=== PATIENT | male | born 1960 | race Caucasian/White ===

== ENCOUNTER 2020-01-06 13:37 | Emergency (ER) | payer OTHER, SELFPAY ==
--- NOTE | ~2020-01-06 | XR_ITS ---
EXAMINATION: [id number] INDICATION: Right lateral rib pain TECHNIQUE: A frontal view of the chest and 3 views of the right ribs were obtained. COMPARISON: CT, 11/17/2019 FINDINGS: The lungs are free of acute opacities. There is no pleural effusion or pneumothorax. The ca rdiomediastinal silhouette is normal. No displaced rib fracture is identified. Multiple calcification s of the upper abdomen are consistent with chronic pancreatitis demonstrated on the comparison CT. IMPRESSION: 1. No acute cardiopulmonary abnormality or evidence of displaced rib fracture. Reviewed, dictated and finalized at location A. 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
--- NOTE | 2020-01-06 13:44 | ED.FALL ---
HPI - Fall General Chief Complaint: Fall Stated Complaint: Fall Time Seen by Provider: 01/06/20 14:06 Source: patient and RN notes reviewed Mode of arrival: ambulatory Limitations: no limitations History of Present Illness HPI Narrative: 59-year-old male presents with concern for right rib pain. Reports last night while standing up from a chair he felt dizzy and fell landing on the floor. He denies hitting his ribs on any hard surface. He denies loss of consciousness, head injury. He denies shortness of breath, reports pain with deep breathing and coughing. 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 He denies any chest pain, shortness of breath, headache, weakness in any extremity, difficulty speaking, difficulty swallowing. MD complaint: fall Related Data Home Medications Medication Instructions Recorded Confirmed lisinopril 20 mg tablet 20 mg PO DAILY 09/24/19 10/27/19 Allergies Allergy/AdvReac Type Severity Reaction Status Date / Time No Known Allergies Allergy Verified 01/06/20 13:41 Review of Systems Review of Systems: Narrative: CONSTITUTIONAL: Denies malaise, chills, sweats, or fever. EYES: Denies no visual changes ENT: Denies rhinorrhea, congestion, sinus pain, otalgia or sore throat. CARDIOVASCULAR: Denies chest pain, palpitations, or edema. RESPIRATORY: Denies cough or dyspnea. Reports pain with coughing and deep breathing GASTROINTESTINAL: Denies abdominal pain, nausea, vomiting, diarrhea SKIN: Denies bruising or redness MUSCULOSKELETAL: Denies back pain, joint pain, or myalgia. Reports right rib cage pain NEUROLOGIC: Denies numbness, weakness, or headache. All systems reviewed & are unremarkable except as noted in HPI and below PMFSH Past Medical History Medical History (Updated 01/06/20 @ 14:32 by Daphney Hendrix NP) Chronic depression Insomnia Julissa hereditary optic neuropathy Family History Family History (Updated 04/07/19 @ 13:11 by DOCTOR UNKNOWN) Father Family history of kidney disease Family history of diabetes mellitus in first degree relative Family history of heart disease in male family member before age 55 Patient's father is , Onset Age: 45 Family history of cardiovascular disease Mother Cerebrovascular accident, Onset Age: 88 Social History Social History Smoking status: Heavy tobacco smoker Alcohol intake: current Gender identity (if verbalized by the patient): Male Comments At time of signature, agree with nursing past medical, surgical, social and family history. There is no relevant family history pertinent to the presenting complaint Exam Narrative: Exam Narrative: GENERAL: Well-appearing, well-nourished, and in no acute distress. HEAD: Normocephalic, atraumatic. EYES: PERRLA, conjunctivae clear ENT: Nares clear. Mucous membranes moist. TM pearly juan with sharp light reflex bilaterally; no tragal tenderness. NECK: Supple. CHEST: No respiratory distress. Clear to auscultation. No bony deformities, no asymmetry. Speaks in full sentences. HEART: Regular rate and rhythm. No murmur heard. Normal peripheral pulses. SKIN: Warm, dry, no rash. No erythema ecchymosis noted to right rib cage Musculoskeletal: Mild tenderness upon palpation to right lower rib area, lateral NEURO: Alert and oriented x3. No focal deficits. PSYCH: Normal mood and affect Course Course Emergency Course: Discussed with patient limited diagnostic capability express care and need for further evaluation of near syncope. Patient reports at this time he will not seek further evaluation emergency department. Reports he can follow-up with his primary care provider for symptoms return. Patient is aware of diagnosis, understands and agrees to treatment plan. Anticipatory guidance given. Patient agrees to follow-up as directed and is aware
[2020-01-06 13:49] VITALS: BP 133/89; PULSE 120; RESP 16; TEMP 37.2; O2SAT 98
[2020-01-06 14:28] VITALS: BP 132/84; PULSE 128
[2020-01-06 14:29] VITALS: BP 112/81; BP 114/81
== END 2020-01-06 14:36 | disposition home or self-care (01) ==
PROVIDERS: Emergency Provider Nurse Practitioner; PCP Family Medicine
DX: R07.81 Pleurodynia (principal); I95.1 Orthostatic hypotension; F17.200 Nicotine dependence, unspecified, uncomplicated
CPT/HCPCS: 71101; 99213; G0463

== ENCOUNTER 2020-09-16 01:05 | Outpatient (CLI) | payer OTHER, SELFPAY ==
[2020-09-16 20:27] LABS: SARS-CoV-2 RNA PCR Negative
== END 2020-09-16 01:06 | disposition home or self-care (01) ==
LOC: ANHCOVIDDT 01:05
PROVIDERS: PCP Family Medicine; Visit Provider Internal Medicine Gastroenterology
DX: Z01.812 Encounter for preprocedural laboratory examination (principal); Z20.828 Contact with and (suspected) exposure to other viral communicable diseases
CPT/HCPCS: 87635; C9803; U0003

== ENCOUNTER 2020-09-19 00:35 | Day surgery (SDC) | payer OTHER, SELFPAY ==
[2020-09-13 15:32] VITALS: BMI 21.1
[2020-09-19 08:35] VITALS: BP 115/80; PULSE 109; RESP 16; TEMP 36.4; O2SAT 100; BMI 20.7
[2020-09-19 08:54] LABS: Glucose Point of Care 94 (65-105)
[2020-09-19] MEDS: LACTATED RINGERS 1,000 ML 150 ML IV CONT (09:01)
--- NOTE | 2020-09-19 09:04 | WPDGICN ---
Assessment and Plan Assessment and plan (1) GERD (gastroesophageal reflux disease): Code(s): K21.9 - Gastro-esophageal reflux disease without esophagitis Status: Acute Assessment and Plan: Patient has ongoing heartburn despite being on proton pump inhibitor. Now has new diagnosis of dysphagia. Plan is for EGD to assess more thoroughly. 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 Plan is for surveillance colonoscopy at this time. GI Consult Note Consult date/time: 09/19/20 09:04 HPI: Gamaliel Moscoso is a 60 year old male Seen in evaluation at the request Dr. Park. Patient presents for follow-up colonoscopy. He has a distant history of colon polyps. He denies any recent change in bowel habits. He has had no bleeding. No abdominal pain his bowel habits are regular. Patient continues to complains of significant acid reflux. Since November 2019 has been maintained on pantoprazole 40 mg p.o. daily. He continues to complain of heartburn. Recently has had difficulty swallowing with food hanging up in the mid substernal portion of the chest. He has had no improvement with pantoprazole. Patient reports over last several years has been declared legally blind. He now apparently has an optical nerve problem. Review of Systems Review of Systems: All systems reviewed & are unremarkable except as noted in HPI and below PMFSH Past Medical History Medical History (Updated 09/19/20 @ 09:06 by Arthur Weeks MD) Acute non-recurrent maxillary sinusitis Chronic depression GERD (gastroesophageal reflux disease) Heartburn Insomnia Julissa hereditary optic neuropathy Mild intermittent asthma in adult without complication Situational anxiety Family History Family History Father Family history of kidney disease Family history of diabetes mellitus in first degree relative Family history of heart disease in male family member before age 55 Patient's father is , Onset Age: 45 Family history of cardiovascular disease Mother Cerebrovascular accident, Onset Age: 88 Social History Social History (Updated 09/08/20 @ 15:21 by Sindy He MA) Smoking packs per day: 1 Smoking cigarettes per day: 20.0 Years smoked: 30 Smoking pack-years: 30.00 Smoking status: Current every day smoker Tobacco type: cigarettes Alcohol intake: current Drinks per week: 4 Alcohol use details: BEER/WHISKEY Substance use: former Substance use type: former substance user Living arrangements: alone Gender identity (if verbalized by the patient): Male Spiritual care concerns: No Meds Home Medications and Allergies Home Medications Medication Instructions Recorded Confirmed Type insulin lispro 100 unit/mL 10 unit SUB-Q TID #15 ml 10/27/19 09/13/20 Rx subcutaneous pen cyclobenzaprine 10 mg tablet 10 mg PO TID PRN #270 tablet 01/28/20 09/13/20 Rx fluticasone propionate 50 1 spray INTRANASAL BID #16 ml 09/08/20 09/13/20 Rx mcg/actuation nasal spray,suspension hydrocodone 7.5 mg-acetaminophen 1 tablet PO Q4H PRN #120 tablet 09/08/20 09/13/20 Rx 325 mg tablet amitriptyline 25 mg PO HS 09/13/20 09/13/20 History escitalopram oxalate [Lexapro] 10 mg PO HS 09/13/20 09/13/20 History lisinopril 20 mg PO HS 09/13/20 09/13/20 History pantoprazole 40 mg PO HS 09/13/20 09/13/20 History Allergies Allergy/AdvReac Type Severity Reaction Status Date / Time No Known Allergies Allergy Verified 09/19/20 08:33 Vital Signs Vital Signs - 24 hr 09/19/20 08:35 Temperature 97.6 F Pulse Rate 109 H Respiratory Rate 16 Blood Pressure 115/80 Pulse Oxime
--- NOTE | 2020-09-19 09:07 | WPDANESEPPF ---
Anes - Initial Pre Proc Eval Procedure: Operation Date: 09/19/20 09:30 Proposed Procedures p Screening Colonoscopy - Arthur Weeks MD Date/Time: 09/19/20 09:07 Surgeon: Arthur Weeks MD Pre Op Diagnosis: Neoplasm Screening, Hx of Colon Polyps Patient Data Age: 60 Gender: M Height: 5 ft 9 in Weight: 63.5 kg Last Vital Signs Temp 36.4 C 09/19/20 08:35 Pulse 109 H 09/19/20 08:35 Resp 16 09/19/20 08:35 BP 115/80 09/19/20 08:35 Pulse Ox 100 09/19/20 08:35 Allergies Allergy/AdvReac Type Severity Reaction Status Date / Time No Known Allergies Allergy Verified 09/19/20 08:33 Home Medications Medication Instructions Recorded Confirmed Type insulin lispro 100 unit/mL 10 unit SUB-Q TID #15 ml 10/27/19 09/13/20 Rx subcutaneous pen cyclobenzaprine 10 mg tablet 10 mg PO TID PRN #270 tablet 01/28/20 09/13/20 Rx fluticasone propionate 50 1 spray INTRANASAL BID #16 ml 09/08/20 09/13/20 Rx mcg/actuation nasal spray,suspension hydrocodone 7.5 mg-acetaminophen 1 tablet PO Q4H PRN #120 tablet 09/08/20 09/13/20 Rx 325 mg tablet amitriptyline 25 mg PO HS 09/13/20 09/13/20 History escitalopram oxalate [Lexapro] 10 mg PO HS 09/13/20 09/13/20 History lisinopril 20 mg PO HS 09/13/20 09/13/20 History pantoprazole 40 mg PO HS 09/13/20 09/13/20 History Laboratory Tests 09/19/20 08:52 POC Capillary Glucose 94 mg/dl mg/dl (65-105) Patient hx anesthesia problems: none Family hx anesthesia problems: none PMFSH Past Medical History Medical History Acute non-recurrent maxillary sinusitis Chronic depression GERD (gastroesophageal reflux disease) Heartburn Insomnia Julissa hereditary optic neuropathy Mild intermittent asthma in adult without complication Situational anxiety Family History Family History Father Family history of kidney disease Family history of diabetes mellitus in first degree relative Family history of heart disease in male family member before age 55 Patient's father is , Onset Age: 45 Family history of cardiovascular disease Mother Cerebrovascular accident, Onset Age: 88 Social History Social History Smoking packs per day: 1 Smoking cigarettes per day: 20.0 Years smoked: 30 Smoking pack-years: 30.00 Smoking status: Current every day smoker Tobacco type: cigarettes Alcohol intake: current Drinks per week: 4 Alcohol use details: BEER/WHISKEY Substance use: former Substance use type: former substance user Living arrangements: alone Gender identity (if verbalized by the patient): Male Spiritual care concerns: No Anes - Eval Final PreProcedure Day of Procedure 09/19/20 09:07 Patient weight: normal Heart: regular rate and rhythm Lungs: decreased breath sounds Airway: Mallampati scale class II and special considerations poor dentition Neurological: alert and oriented Last oral intake: >/= 8 hours ASA classification: III Emergent: no Anesthetic plan: proceed Anesthesia type and monitoring: general GIVS and standard monitoring Informed Consent: The patient's anesthetic plan and its attendant risks and benefits were discussed with the patient/family/POA. Questions were solicited and answers provided to the satisfaction of the patient/family/POA.
[2020-09-19 10:32] VITALS: BP 123/58; PULSE 105; RESP 25; O2SAT 96
[2020-09-19 10:42] VITALS: BP 91/63; PULSE 101; RESP 36; O2SAT 93
[2020-09-19 10:49] VITALS: PULSE 96; RESP 18
[2020-09-19] MEDS: ALBUTEROL SULFATE NEB 2.5 MG/3 ML INH 1.25 MG INHALATION (10:49)
[2020-09-19 10:50] LABS: Glucose Point of Care 86 (65-105)
[2020-09-19 10:52] VITALS: BP 107/72; PULSE 96; RESP 27; O2SAT 95
--- NOTE | 2020-09-19 10:57 | SUR.PHASEII ---
Pt to recovery coughing. Lungs diminished with wheezing in LLL. Pt continue coughing. Albuteral Neb ordered per Dr. Cavazos. Lungs now diminished with wheezing in LLL, but improved. Pt and family educated on signs and symptoms of aspiration pneumonia and to call physician with any symptoms or concerns. Both voiced understanding.
[2020-09-19 11:07] VITALS: PULSE 97; RESP 20
== END 2020-09-19 11:22 | disposition home or self-care (01) ==
PROVIDERS: PCP Family Medicine; Visit Provider Internal Medicine Gastroenterology
PROC: 0DJD8ZZ Inspection of Lower Intestinal Tract, Via Natural or Artificial Opening Endoscopic (ICD-10-PCS; CPT 45378; principal; 2020-09-19 09:30)
DX: Z12.11 Encounter for screening for malignant neoplasm of colon (principal); Z86.010 Personal history of colon polyps; K21.00 Gastro-esophageal reflux disease with esophagitis, without bleeding; K22.70 Barrett's esophagus without dysplasia; I10 Essential (primary) hypertension; E11.9 Type 2 diabetes mellitus without complications; Z79.4 Long term (current) use of insulin; J45.20 Mild intermittent asthma, uncomplicated; Z79.51 Long term (current) use of inhaled steroids; H47.22 Hereditary optic atrophy; F32.9 Major depressive disorder, single episode, unspecified; F41.8 Other specified anxiety disorders; G47.00 Insomnia, unspecified; F17.210 Nicotine dependence, cigarettes, uncomplicated
CPT/HCPCS: 45378; 43239; 88305; 94640; J2704; J7120

== ENCOUNTER 2020-10-17 01:41 | Outpatient (CLI) | payer OTHER, SELFPAY ==
[2020-10-17 18:52] LABS: SARS-CoV-2 RNA PCR Negative
== END 2020-10-17 01:42 | disposition home or self-care (01) ==
LOC: ANHCOVIDDT 01:41
PROVIDERS: PCP Family Medicine; Visit Provider Internal Medicine Gastroenterology
DX: Z01.818 Encounter for other preprocedural examination (principal); Z20.828 Contact with and (suspected) exposure to other viral communicable diseases
CPT/HCPCS: 87635; C9803; U0003

== ENCOUNTER 2020-10-20 00:30 | Day surgery (SDC) | payer OTHER, SELFPAY ==
[2020-10-12 12:34] VITALS: BMI 20.2
--- NOTE | 2020-10-19 12:11 | WPDANESEPPF ---
Anes - Initial Pre Proc Eval Procedure: Operation Date: 10/20/20 08:30 Proposed Procedures p Screening Colonoscopy - Arthur Weeks MD Date/Time: 10/19/20 12:11 Surgeon: Arthur Weeks MD Pre Op Diagnosis: neoplasm screening Patient Data Age: 60 Gender: M Height: 1.78 m Weight: 64 kg Allergies Allergy/AdvReac Type Severity Reaction Status Date / Time No Known Allergies Allergy Verified 10/20/20 07:08 Home Medications Medication Instructions Recorded Confirmed Type insulin lispro 100 unit/mL 10 unit SUB-Q TID #15 ml 10/27/19 10/20/20 Rx subcutaneous pen fluticasone propionate 50 1 spray INTRANASAL BID #16 ml 09/08/20 10/12/20 Rx mcg/actuation nasal spray,suspension amitriptyline 25 mg PO HS 09/13/20 10/20/20 History escitalopram oxalate [Lexapro] 10 mg PO HS 09/13/20 10/20/20 History lisinopril 20 mg PO HS 09/13/20 10/20/20 History pantoprazole 40 mg PO HS 09/13/20 10/20/20 History cyclobenzaprine 10 mg tablet 10 mg PO TID PRN #270 tablet 10/11/20 10/20/20 Rx hydrocodone 7.5 mg-acetaminophen 1 tablet PO Q4H PRN #120 tablet 10/11/20 10/20/20 Rx 325 mg tablet Patient hx anesthesia problems: none Family hx anesthesia problems: none PMFSH Past Medical History Medical History (Updated 10/19/20 @ 12:12 by Prince Madsen MD) Acute non-recurrent maxillary sinusitis Chronic depression Chronic pancreatitis Diabetic peripheral neuropathy Essential (primary) hypertension GERD (gastroesophageal reflux disease) Heartburn Insomnia Julissa hereditary optic neuropathy Mild intermittent asthma in adult without complication Situational anxiety Tobacco use disorder, continuous Uncontrolled type 1 diabetes mellitus with hyperglycemia Family History Family History Father Family history of kidney disease Family history of diabetes mellitus in first degree relative Family history of heart disease in male family member before age 55 Patient's father is , Onset Age: 45 Family history of cardiovascular disease Mother Cerebrovascular accident, Onset Age: 88 Social History Social History Smoking packs per day: 1 Smoking cigarettes per day: 20.0 Years smoked: 1,976 Smoking pack-years: 1976.00 Smoking status: Current every day smoker Tobacco type: cigarettes Alcohol intake: current Drinks per week: 4 Substance use: former Substance use type: former substance user Living arrangements: alone Gender identity (if verbalized by the patient): Male Spiritual care concerns: No Anes - Eval Final PreProcedure Day of Procedure 10/19/20 12:11 Patient weight: normal Heart: regular rate and rhythm Lungs: clear to auscultation and normal air movement Airway: Mallampati scale class II Neurological: alert and oriented Last oral intake: >/= 8 hours ASA classification: III Emergent: no Anesthetic plan: proceed Anesthesia type and monitoring: general GIVS Informed Consent: The patient's anesthetic plan and its attendant risks and benefits were discussed with the patient/family/POA. Questions were solicited and answers provided to the satisfaction of the patient/family/POA.
[2020-10-20 07:12] VITALS: BP 126/90; PULSE 116; RESP 18; TEMP 36.6; O2SAT 100; BMI 19.8
[2020-10-20] MEDS: LACTATED RINGERS 1,000 ML 150 ML IV CONT (07:22)
[2020-10-20 07:31] LABS: Glucose Point of Care 135 (65-105)
--- NOTE | 2020-10-20 08:20 | WPDGICN ---
Assessment and Plan Assessment and plan (1) Encounter for screening colonoscopy: Code(s): Z12.11 - Encounter for screening for malignant neoplasm of colon Status: Acute Assessment and Plan: Patient presents today for screening colonoscopy. Additional prep was given in anticipation of this. Further recommendations will be given after endoscopy. GI Consult Note Consult date/time: 10/20/20 08:20 HPI: Gamaliel Moscoso is a 60 year old male Presents for screening colonoscopy. Patient initial attempted endoscopy was limited by poor preparation. Patient does have a prior history of colon polyps. He has been treated for diabetes mellitus. Family history is noncontributory. patient denies any blood in his stools. He has had no weight loss. He denies abdominal pain. Review of Systems Review of Systems: All systems reviewed & are unremarkable except as noted in HPI and below PMFSH Past Medical History Medical History Acute non-recurrent maxillary sinusitis Chronic depression Chronic pancreatitis Diabetic peripheral neuropathy Essential (primary) hypertension GERD (gastroesophageal reflux disease) Heartburn Insomnia Julissa hereditary optic neuropathy Mild intermittent asthma in adult without complication Situational anxiety Tobacco use disorder, continuous Uncontrolled type 1 diabetes mellitus with hyperglycemia Family History Family History Father Family history of kidney disease Family history of diabetes mellitus in first degree relative Family history of heart disease in male family member before age 55 Patient's father is , Onset Age: 45 Family history of cardiovascular disease Mother Cerebrovascular accident, Onset Age: 88 Social History Social History Smoking packs per day: 1 Smoking cigarettes per day: 20.0 Years smoked: 1,976 Smoking pack-years: 1976.00 Smoking status: Current every day smoker Tobacco type: cigarettes Alcohol intake: current Drinks per week: 4 Substance use: former Substance use type: former substance user Living arrangements: alone Gender identity (if verbalized by the patient): Male Spiritual care concerns: No Meds Home Medications and Allergies Home Medications Medication Instructions Recorded Confirmed Type insulin lispro 100 unit/mL 10 unit SUB-Q TID #15 ml 10/27/19 10/20/20 Rx subcutaneous pen fluticasone propionate 50 1 spray INTRANASAL BID #16 ml 09/08/20 10/12/20 Rx mcg/actuation nasal spray,suspension amitriptyline 25 mg PO HS 09/13/20 10/20/20 History escitalopram oxalate [Lexapro] 10 mg PO HS 09/13/20 10/20/20 History lisinopril 20 mg PO HS 09/13/20 10/20/20 History pantoprazole 40 mg PO HS 09/13/20 10/20/20 History cyclobenzaprine 10 mg tablet 10 mg PO TID PRN #270 tablet 10/11/20 10/20/20 Rx hydrocodone 7.5 mg-acetaminophen 1 tablet PO Q4H PRN #120 tablet 10/11/20 10/20/20 Rx 325 mg tablet Allergies Allergy/AdvReac Type Severity Reaction Status Date / Time No Known Allergies Allergy Verified 10/20/20 07:08 Vital Signs Vital Signs - 24 hr 10/20/20 07:12 Temperature 97.9 F Pulse Rate 116 H Respiratory Rate 18 Blood Pressure 126/90 Pulse Oximetry 100 Exam Narrative: Exam Narrative: Physical exam reveals patient be alert. Vital signs stable. HEENT exam is unremarkable. Lungs are clear to auscultation and percussion. Heart is without murmur or extra sounds. Abdominal exam bowel sounds are present soft nontender without organomegaly. Digital external rectal exam is normal.
[2020-10-20 08:37] VITALS: BP 106/75; PULSE 111; RESP 24; O2SAT 98
[2020-10-20 08:47] VITALS: BP 118/83; PULSE 99; RESP 23; O2SAT 99
[2020-10-20 08:49] LABS: Glucose Point of Care 122 (65-105)
[2020-10-20 08:57] VITALS: BP 122/85; PULSE 91; RESP 15; O2SAT 98
== END 2020-10-20 09:12 | disposition home or self-care (01) ==
PROVIDERS: PCP Family Medicine; Visit Provider Internal Medicine Gastroenterology
PROC: 0DJD8ZZ Inspection of Lower Intestinal Tract, Via Natural or Artificial Opening Endoscopic (ICD-10-PCS; CPT 45378; principal; 2020-10-20 08:30)
DX: Z12.11 Encounter for screening for malignant neoplasm of colon (principal); K64.8 Other hemorrhoids; J45.20 Mild intermittent asthma, uncomplicated; I10 Essential (primary) hypertension; K21.9 Gastro-esophageal reflux disease without esophagitis; H46.8 Other optic neuritis; F41.8 Other specified anxiety disorders; E10.42 Type 1 diabetes mellitus with diabetic polyneuropathy; F17.210 Nicotine dependence, cigarettes, uncomplicated; Z79.4 Long term (current) use of insulin
CPT/HCPCS: 45378; J2704; J7120

== ENCOUNTER 2022-01-29 16:28 | Outpatient (CLI) | payer SELFPAY ==
--- NOTE | 2022-01-29 16:37 | ECG_ITS ---
Measurements Intervals [place] Rate: 123 P: 82 ID: [id number] QRS: 65 QRSD: 94 T: 83 QT: 287 QTc: 411 Interpretive Statements SINUS TACHYCARDIA NONSPECIFIC T-WAVE ABNORMALITY CANNOT RULE OUT INFERIOR INFARCTION ABNORMAL ECG Electronically Signed On 01-30-2022 11:09:52 CDT by Jason Robledo M.D.
== END 2022-01-29 16:29 | disposition home or self-care (01) ==
LOC: ANHCARD 16:31
PROVIDERS: PCP Family Medicine; Visit Provider Family Medicine
DX: R55 Syncope and collapse (principal); R94.31 Abnormal electrocardiogram [ECG] [EKG]
CPT/HCPCS: 93005

== ENCOUNTER 2022-01-30 14:47 | Inpatient (IN) | payer SELFPAY ==
--- NOTE | ~2022-01-30 | XR_ITS ---
EXAMINATION: XR chest 1V portable DATE: 01/30/2022 15:44 INDICATION: Dizziness and tachycardia. Abnormal EKG. TECHNIQUE: frontal view of the chest was obtained. COMPARISON: Chest radiograph dated 06/22/14 FINDINGS: Lungs are now clear with no focal airspace opacities, pulmonary edema, pleural effusion or pneumothor ax. The cardiomediastinal silhouette is normal. Old healed posterior right ninth rib fracture. Surgic al clips in the upper abdomen including right upper quadrant clips consistent with prior cholecystect james. Numerous dystrophic calcifications in the left upper quadrant corresponding to the location and orientation of the pancreas, likely sequela of chronic pancreatitis. IMPRESSION: 1. No acute cardiopulmonary disease. Reviewed, dictated and finalized at location A.
--- NOTE | ~2022-01-30 | MR_ITS ---
EXAMINATION: MR brain/brain stem wo/w con DATE: 01/31/2022 11:59 INDICATION: Seizure. Transient ischemic episode TECHNIQUE: Magnetic resonance imaging (MRI) of the brain and brainstem was performed without and with 12 mL Multihance intravenous contrast. Sequences included sagittal and axial T1-weighted SE, axial d iffusion-weighted FS SE, axial T2*-weighted GRE, axial T2-weighted FLAIR, and axial T2-weighted FSE. Postcontrast axial and coronal T1-weighted SE was obtained. Apparent diffusion coefficient (ADC) maps were created. COMPARISON: Head CT dated 01/30/2022 FINDINGS: There are no areas of restricted diffusion to suggest acute infarction. No intracranial hemorrhage or abnormal intracranial mass lesion. There are scattered areas of nonspecific increased T2-weighted si gnal intensity in the cerebral white matter, predominantly involving the deep and periventricular whi te matter. There are no intraparenchymal signal abnormalities seen on the other pulse sequences. Symm etric prominence of the sulci, subarachnoid spaces overlying the frontal lobes and ventricles consist ent with mild age-appropriate diffuse cerebral volume loss. There are no abnormal extra-axial fluid c ollections. Flow voids are seen in the cerebral arteries on the T2-weighted sequences consistent with their expected patency. Mucosal thickening, moderate with small amount of mucus in the left maxillar y sinus and mild throughout the remainder of the paranasal sinuses Visualized orbits and soft tissues are unremarkable. There are no areas of abnormal enhancement on the post contrast images. IMPRESSION: 1. No acute intracranial process or abnormally enhancing brain lesions. 2. Age-related changes including mild diffuse volume loss and mild scattered foci of nonspecific whit e matter T2 hyperintensity consistent with chronic small vessel ischemic disease. 3. Left maxillary sinus predominant sinus disease. Reviewed, dictated and finalized at location A. IMPRESSION: 1. No acute intracranial process or abnormally enhancing brain lesions. 2. Age-related changes including mild diffuse volume loss and mild scattered fo ci of nonspecific white matter T2 hyperintensity consistent with chronic small vessel ischemic disease. 3. Left maxillary sinus predominant sinus disease.
--- NOTE | ~2022-01-30 | US_ITS ---
EXAMINATION: US carotid duplex BI DATE: 01/31/2022 12:12 INDICATION: Recurrent syncope TECHNIQUE: Grayscale, color Doppler, and pulsed Doppler images of the cervical carotid arteries were obtained. The degree of vessel stenosis is placed in one of the following categories: normal, <50%, 5 0-69%, >=70% but less than near-occlusion, near-occlusion, or total occlusion. Note that percent sten osis relative to normal distal artery lumen diameter is indirectly measured from velocity measurement s as described by Kristian, et al. Radiology 2003; 229:340-346. Notes: Normal: Peak systolic velocity <125 centimeters/sec and no plaque <50%. Peak systolic velocity <125 ( EDV <40; ICA/CCA PSV ratio <2.0; used these factors only a tandem lesions or low cardiac output or co ntralateral disease) 50-69 %: PSV 125-230 (EDV 40-100; ratio 2-4) >= 70% but less than near occlusion: PSV greater than 230 (EDV > 100; ratio> 4.0) Near Occlusion: PSV that is variable; markedly narrowed lumen Occlusion: Absent flow on color/spectral Doppler and no lumen on juan scale. COMPARISON: None. FINDINGS: RIGHT: The right common carotid artery (CCA) peak systolic velocity (PSV) is 121 cm/s. The right internal ca rotid artery (ICA) PSV is 79 cm/s. The right ICA end-diastolic velocity (EDV) is 18 cm/s. The right I CA/CCA PSV ratio is 0.7. The external carotid artery (ECA) PSV is 71 cm/s. There is antegrade flow in the right vertebral artery. LEFT: The left CCA PSV is 118 cm/s. The left ICA PSV is 88 cm/s. The left ICA EDV is 27 cm/s. The left ICA/ CCA PSV ratio is 0.7. The ECA PSV is 83 cm/s. There is antegrade flow in the left vertebral artery. IMPRESSION: 1. Less than 50% stenosis in the right internal carotid artery by sonographic criteria. 2. Less than 50% stenosis in the left internal carotid artery by sonographic criteria. Reviewed, dictated and finalized at location A. IMPRESSION: 1. Less than 50% stenosis in the right internal carotid artery by sonographic hillary ornelas. 2. Less than 50% stenosis in the left internal carotid artery by sonographic bianka garza.
--- NOTE | ~2022-01-30 | CT_ITS ---
EXAMINATION: CT brain wo con INDICATION: Transient alteration of awareness COMPARISON: None TECHNIQUE: Standard unenhanced head CT. The dose-length product (DLP) was 605.33 mGy-cm. The mA was a djusted according to patient size. Iterative reconstruction technique was employed. FINDINGS: There is no acute intraparenchymal hemorrhage. No evidence of mass lesion. No evidence of a cute infarction. There is mild periventricular and subcortical hypodensity probably related to small vessel ischemic disease. There is moderate prominence of the sulci and ventricles related to cerebral atrophy. Intracranial calcified cerebral atherosclerosis is noted. There are no extra-axial collecti ons. There is no mass effect or midline shift. The orbits and soft tissues are unremarkable. The visu alized sinuses and mastoid air cells are well aerated. IMPRESSION: 1. No acute intracranial abnormality. 2. Age related findings. Reviewed, dictated and finalized at location B.
[2022-01-30 14:56] VITALS: BP 127/81; PULSE 121; RESP 16; TEMP 36.6; O2SAT 99
--- NOTE | 2022-01-30 14:59 | ECG_ITS ---
Measurements Intervals [place] Rate: 108 P: 86 HI: 149 QRS: 36 QRSD: 98 T: 75 QT: 314 QTc: 423 Interpretive Statements SINUS TACHYCARDIA OTHERWISE NORMAL ECG COMPARED TO ECG 01/29/2022 16:45:29 NO SIGNIFICANT CHANGES Electronically Signed On 01-30-2022 17:14:10 CDT by Jason Robledo M.D.
[2022-01-30 16:11] LABS: Basophils Absolute Auto 0.1 K/mm3 (0.0-0.1); Basophils Percent Auto 0.5 % (0.2-1.2); Eosinophils Absolute Auto 0.2 K/mm3 (0-0.3); Eosinophils Percent Auto 1.5 % (0-4.4); Hematocrit 41.9 % (42.0-52.0); Hemoglobin 14.2 g/dL (14.0-18.0); Immature Granulocyte Absolute 0.07 K/mm3 (0.00-0.031); Immature Granulocyte Percent A 0.7 % (0-0.5); Lymphocytes Absolute Auto 2.32 K/mm3 (0.9-3.2); Lymphocytes Percent Auto 22.2 % (18.3-44.2); Mean Corpuscular HGB Conc 33.9 g/dl (32-36); Mean Corpuscular Hemoglobin 34.8 pg (26-34); Mean Corpuscular Volume 102.7 fl (80-100); Mean Platelet Volume 10.4 fl (7.4-10.4); Monocytes Absolute Auto 0.9 K/mm3 (0.1-0.6); Monocytes Percent Auto 8.7 % (2.6-8.5); Neutrophils Absolute Auto 6.9 K/mm3 (1.3-6.7); Neutrophils Percent Auto 66.4 % (45.5-73.1); Platelet Count Result 199 k/mm3 (150-375); Red Blood Count 4.08 M/mm3 (4.6-6.20); Red Cell Distribution Width 12.5 % (11.5-14.5); White Blood Count 10.4 K/mm3 (4.5-10.0)
--- NOTE | 2022-01-30 16:12 | ED.GENADULT ---
HPI - General Adult General Chief complaint: Recheck/Abnormal Lab/Rx Stated complaint: Syncope Time Seen by Provider: 01/30/22 15:02 Source: patient, family and RN notes reviewed Mode of arrival: ambulatory Limitations: no limitations History of Present Illness HPI narrative: Patient is 61 years old white male referred to the emergency room by Dr. Park office because of EKG showing sinus tachycardia and history of multiple syncope preceded by dizziness and lightheadedness, over the last 2 months. Currently patient denying any fever, chills, nausea, vomiting, diarrhea, constipation, headache, chest pain, shortness of breath, back pain, focal deficit. Patient is legally blind since 2019 secondary to hereditary disorder runs in the family, History of diabetes, depression, muscle pain, and hypertension. Patient on amitriptyline, Flexeril, and hydrocodone. Patient sisters telling me that patient was in her house 6 days ago, and had to episodes of syncope, and was unresponsive for few seconds at that time. Also reported that his blood pressure was 83/57 at that time. Related Data Allergies Allergy/AdvReac Type Severity Reaction Status Date / Time No Known Allergies Allergy Verified 01/30/22 15:33 Review of Systems Review of Systems: CONSTITUTIONAL: Denies fever, chills, or sweats. EYES: Denies visual changes, redness, or discharge. ENT: Denies rhinorrhea, congestion, sore throat, or otalgia. CARDIOVASCULAR: Denies chest pain, palpitations, or edema. RESPIRATORY: Denies cough or dyspnea. GASTROINTESTINAL: Denies abdominal pain, nausea, vomiting, or diarrhea. GENITOURINARY: Denies dysuria or hematuria. SKIN: Denies rash or itching. MUSCULOSKELETAL: Denies back pain, joint pain, or myalgia. NEUROLOGIC: Denies headache, numbness, or weakness. PSYCHIATRIC: Denies anxiety or depression. [facility] Past Medical History Medical History Acute non-recurrent maxillary sinusitis Body mass index (BMI) less than or equal to 19 in adult Chronic depression Chronic pancreatitis Chronic thoracic back pain Diabetic neuropathy associated with type 1 diabetes mellitus Encounter for screening colonoscopy Essential (primary) hypertension GERD (gastroesophageal reflux disease) Insomnia Julissa hereditary optic neuropathy Mild intermittent asthma in adult without complication Nocturia Situational anxiety Syncope (~01/2022) Tachycardia (01/29/22) EKG 01/29/2022 with sinus tachycardia with heart rate [address] T wave changes, cannot rule out inferior [place]. Tobacco use disorder, continuous Uncontrolled type 1 diabetes mellitus with hyperglycemia Family History Family History Father Family history of kidney disease Family history of diabetes mellitus in first degree relative Family history of heart disease in male family member before age 55 Patient's father is , Onset Age: 45 Family history of cardiovascular disease Mother Cerebrovascular accident, Onset Age: 88 Social History Social History Smoking packs per day: 1 Smoking cigarettes per day: 20.0 Years smoked: 45 Smoking pack-years: 45.00 Smoking status: Current every day smoker ( 1 pack daily) Tobacco type: cigarettes Alcohol intake: current Drinks per week: 2 Alcohol use details: BEER/WHISKEY Substance use: former Substance use type: former substance user Gender identity (if verbalized by the patient): Male Spiritual care concerns: No Exam Narrative: General appearance: Well-developed, well-nourished Skin: Normal color Head: Normocephalic, nontraumatic Eyes: Clear conjunctiva ENT: Oropharynx normal, ears normal, nose normal Neck: Supple, nontender Chest and respiratory: Airway patent, no respiratory distress, no accessory muscle use Heart: Regular rate/rhythm Abdomen: Soft, no
[2022-01-30 16:25] LABS: Alanine Aminotransferase 26 U/L (4-50); Alkaline Phosphatase 97 U/L (38-126); Anion Gap 12 mmol/L (8-16); Aspartate Amino Transferase 48 U/L (17-59); Bilirubin,Total 0.3 mg/dL (0.2-1.3); Blood Urea Nitrogen 8 mg/dL (9-20); Calcium 9.2 mg/dL (8.4-10.2); Carbon Dioxide 25 mmol/L (22-30); Chloride 95 mmol/L (98-107); Creatine Kinase 35 U/L (55-170); Estimated CRCL calculation 105 ml/min; Estimated Glomerular Filt Rate > 60; Glucose 220 mg/dL (65-110); Potassium 3.8 mmol/L (3.4-5.0); Sodium 132 mmol/L (137-145)
[2022-01-30 16:38] LABS: Troponin I < 0.012 ng/mL (0.000-0.034)
[2022-01-30 16:49] LABS: INR 0.8; Prothrombin Time 11.1 Seconds (11.1-14.7)
[2022-01-30 16:50] LABS: Partial Thromboplastin Time 29.3 SECONDS (22.3-36.8)
[2022-01-30 17:00] LABS: Amphetamine Screen Urine Negative (Negative); Barbiturate Screen Urine Negative (Negative); Benzodiazepines Screen Urine Negative (Negative); Cannabinoid Screen Urine Positive (Negative); Cocaine Screen Urine Negative (Negative); Methadone Screen Urine Negative (Negative); Opiate Screen Urine Positive (Negative); Phencyclidine Screen Urine Negative (Negative)
[2022-01-30 17:01] LABS: D Dimer 0.36 ug/mL (<0.48)
[2022-01-30 17:28] LABS: Add Urine Microscopic? YES; Appearance Urine Cloudy (Clear); Bilirubin Urine Negative (Negative); Blood Urine Negative (Negative); Color Urine Yellow (Yellow); Glucose Urine UA Negative (Negative); Ketones Urine Negative (Negative); Leukocyte Esterase Ur Negative LEU/UL (Negative); Mucus Urine Few /lpf; Nitrate Urine Negative (Negative); Protein Urine Negative (Negative); RBC Urine 0-2 /hpf (0-2); Specific Grav Ur 1.019 (1.001-1.035); WBC Urine 0-3 /hpf
[2022-01-30 18:38] LABS: Glucose Point of Care 132 mg/dl (65-105)
--- NOTE | 2022-01-30 18:45 | PM.IMHP ---
H&P: HPI History of Present Illness Date/Time: 01/30/22 18:45 Chief Complaint: Multiple syncopal episodes. Narrative: This is a 61-year-old male smoker with insulin-dependent diabetes, hypertension, GERD, depression, anxiety who presented to the emergency department for evaluation of multiple syncopal episodes. He has had several episodes of syncope over the last couple of months and he was seen by Dr. Park today in the office for evaluation of the same. An EKG demonstrated sinus tachycardia and given his recurrent syncopal episodes he was directed to the emergency department. He has a prodrome prior to these episodes where he starts feeling dizzy and lightheaded. Unfortunately they seem to occur quite quickly and on several occasions he has not been able to sit or lie down before falling. His sister witnessed 1 of these episodes the other day. She tells me that the patient stood up from the couch, walked 4 to 5 steps, and it appeared that he began to ?weave back and forth? before he fell backwards. He was unconscious for several seconds and he tried to get back up thereafter however when he grabbed onto the chair to try to stand up ?he just went blank? for several seconds. Due to these ongoing episodes, he has been monitoring his blood pressure and he stopped taking his lisinopril within the last week or so as his blood pressures were in the 80s over 50s. He has lost 8 lb unintentionally over the past month or so which he blames on extraction of all teeth in the upper jaw is inability to eat well; he is still awaiting his dentures. He is not aware of the racing heart and he denies palpitations, chest pain, and pleuritic pain. He also denies shortness of breath. He has not had lower extremity edema, calf pain, or tenderness. Luckily he has not sustained any significant injuries with these episodes. It should be noted that his sister took his glucose after his episode and at which time it was around 170. He has not had any significant lows recently. There was no mention of seizure activity. No bowel or bladder incontinence. Review of Systems Review of Systems: Twelve systems were reviewed. He is now on disability due to a hereditary optic neuropathy; he really only has peripheral vision left at this point. No fever, chills, or sweats. No recent cold or flu symptoms. He denies orthopnea, PND, and lower extremity edema. No chest pain, pleuritic pain, or shortness of breath. No history of venous thromboembolism. His diabetes is typically very well controlled with fasting levels between 80 and 110. His last hemoglobin A1c was between 6 and 7. Except as documented, all other systems were reviewed and are negative. [facility] Past Medical History Medical History (Updated 01/30/22 @ 22:38 by Bhavani Ortiz PA-C) Chronic depression Chronic pancreatitis Chronic thoracic back pain On prescription opioids. Diabetic neuropathy associated with type 1 diabetes mellitus Essential (primary) hypertension Gastroesophageal reflux disease Insomnia Insulin dependent diabetes mellitus Julissa hereditary optic neuropathy Mild intermittent asthma in adult without complication Nocturia Situational anxiety Syncope (~01/2022) Tachycardia (01/29/22) EKG 01/29/2022 with sinus tachycardia with heart rate [address] T wave changes, cannot rule out inferior [place]. Tobacco use disorder, continuous Surgical History Surgical History (Updated 01/30/22 @ 22:29 by Bhavani Ortiz PA-C) History of cholecystectomy History of orthopedic surgery Left 5th finger surgery. Bilateral foot surgery. History of partial colectomy For what sounds like perforated diverticulitis. History of tonsillectomy Family History Family History Father Family history of kidney disease Family history of diabetes mellitus in first degree relative Family history of heart disease in male family member before age 55 Patient's father i
[2022-01-30 20:07] VITALS: BP 111/84; PULSE 110; RESP 18; O2SAT 98
[2022-01-30 20:08] VITALS: BP 119/78; PULSE 103; RESP 18; TEMP 36.5; O2SAT 100; BMI 19.5
--- NOTE | 2022-01-30 20:16 | ADMGEN ---
This patient, Gamaliel Moscoso, was admitted to [facility] Surg Room 326-01. Patient/family oriented to hospital policies and general routines including ID bracelet, bed and alarms, visiting hours, pain management, procedures, bathroom and other care routines, personal items, smoking policy, room service/diet, and visiting hours. Information on how to activate the Rapid Response Team has been discussed. Patient/Family are encouraged to report perceived risks to care and to ask questions if they do not understand what they are told or what they should do.
[2022-01-30 20:55] LABS: Glucose Point of Care 201 mg/dl (65-105)
[2022-01-30 21:46] VITALS: BP 100/74; PULSE 105; RESP 17; TEMP 36.9; O2SAT 99
[2022-01-31] VITALS (16 sets, daily range): BP systolic 101–136; BP diastolic 70–89; PULSE 81–123; RESP 16–20; TEMP 36.1–36.8; O2SAT 97–100
[2022-01-31] MEDS: SODIUM CHLORIDE 0.9% IV 1,000 ML 75 ML IV CONT (01:22)
[2022-01-31 06:27] LABS: Hematocrit 43.1 % (42.0-52.0); Hemoglobin 14.8 g/dL (14.0-18.0); Mean Corpuscular HGB Conc 34.3 g/dl (32-36); Mean Corpuscular Hemoglobin 35.3 pg (26-34); Mean Corpuscular Volume 102.9 fl (80-100); Mean Platelet Volume 10.6 fl (7.4-10.4); Platelet Count Result 184 k/mm3 (150-375); Red Blood Count 4.19 M/mm3 (4.6-6.20); Red Cell Distribution Width 12.5 % (11.5-14.5); White Blood Count 9.7 K/mm3 (4.5-10.0)
[2022-01-31 06:38] LABS: Hemoglobin A1C 6.2 % (<5.7)
[2022-01-31 06:42] LABS: Anion Gap 4 mmol/L (8-16); Blood Urea Nitrogen 9 mg/dL (9-20); Calcium 8.6 mg/dL (8.4-10.2); Carbon Dioxide 30 mmol/L (22-30); Chloride 99 mmol/L (98-107); Estimated CRCL calculation 99 ml/min; Estimated Glomerular Filt Rate > 60; Glucose 107 mg/dL (65-110); Magnesium 1.2 mg/dL (1.6-2.3); Potassium 3.7 mmol/L (3.4-5.0); Sodium 133 mmol/L (137-145)
[2022-01-31 07:59] LABS: Glucose Point of Care 125 mg/dl (65-105)
[2022-01-31] MEDS: PANTOPRAZOLE 40 MG TABLET PO ×2 (08:35→17:19)
[2022-01-31] MEDS: FLUTICASONE PROPIONATE 0.05% NA SPR 16 GM BTL (*BKC) 1 SPRAY NASAL ×2 (08:35→17:19)
[2022-01-31 11:24] LABS: Glucose Point of Care 137 mg/dl (65-105)
--- NOTE | 2022-01-31 11:36 | PCCCNOTE ---
On 01/31/22, the student, [Sariah Moreland ], provided care and [email or web address] on this patient. I have reviewed the student's documentation and agree with the findings.
--- NOTE | 2022-01-31 12:13 | WPDNEURCNPN ---
Assessment and Plan Additional Plan 1 recurrent syncopal episode most likely orthostatic with the possibility of underlying autonomic dysfunction 2 rule out the possibility of the carotid disease Consult date: 01/31/22 HPI: Gamaliel Moscoso is a 61 year old male admitted to the hospital through the emergency room where he came with the complaints of syncopal episodes he was referred to emergency room by Dr. Park office because of sinus tachycardia on routine EKG along with the complaints of dizziness and lightheadedness over the last couple of months on initial evaluation in the emergency room he had no other generalized symptomatology but was documented that he has history of 1. Depression 2. Diabetes mellitus 3. Hypertension it was also mention in the emergency room by his sister a 6 days prior to this visit to the ER he was in her house and had an episode of syncope when he was unresponsive to several seconds and his blood pressure at that time was 83/57, he is not allergic to any medication past history is consistent with chronic depression, chronic pancreatitis, chronic back, diabetes mellitus with neuropathy, and levels optic neuropathy, years smoked 45 with smoking pack years of 45 and currently everyday smoker and everyday alcohol intake, initial vital signs stable except tachycardia CT scan of the head negative for the bleed and EKG with no evidence of atrial fibrillation, MRI has been done which is negative and CT scan of the brain was also normal, chest x-ray with no acute parenchymal disease, routine labs with MCV of 102.9 and hemoglobin of 14.8 toxicology positive for opiates and cannabinoids Review of Systems Review of Systems: All systems reviewed & are unremarkable except as noted in HPI and below PMFSH Past Medical History Medical History Chronic depression Chronic pancreatitis Chronic thoracic back pain On prescription opioids. Diabetic neuropathy associated with type 1 diabetes mellitus Essential (primary) hypertension Gastroesophageal reflux disease Insomnia Insulin dependent diabetes mellitus Julissa hereditary optic neuropathy Mild intermittent asthma in adult without complication Nocturia Situational anxiety Syncope (~01/2022) Tachycardia (01/29/22) EKG 01/29/2022 with sinus tachycardia with heart rate [address] T wave changes, cannot rule out inferior [place]. Tobacco use disorder, continuous Surgical History Surgical History History of cholecystectomy History of orthopedic surgery Left 5th finger surgery. Bilateral foot surgery. History of partial colectomy For what sounds like perforated diverticulitis. History of tonsillectomy Family History Family History Father Family history of kidney disease Family history of diabetes mellitus in first degree relative Family history of heart disease in male family member before age 55 Patient's father is , Onset Age: 45 Family history of cardiovascular disease Mother Cerebrovascular accident, Onset Age: 88 Social History Social History Social History: Surrogate decision maker: Kiya Ba, sister. Code status: Full code. He would not however want to be on long-term life support. Smoking packs per day: 1 Smoking cigarettes per day: 20.0 Years smoked: 48 Smoking pack-years: 48.00 Smoking status: Current every day smoker Tobacco type: cigarettes Second hand tobacco smoke exposure: Yes Alcohol intake: current Drinks per week: 2 Alcohol use details: Beer or whiskey. Substance use: current Other substance usage details: Occasional marijuana use. Additional living arrangements comments: The patient lives alone in [place]. Additional occupation/education comments: [employer], now on disability due to visi
--- NOTE | 2022-01-31 14:04 | PM.IMPN ---
Progress Note: A&P Assessment and Plan (1) Recurrent syncope: Code(s): R55 - Syncope and collapse Status: Acute (2) Sinus tachycardia: Code(s): R00.0 - Tachycardia, unspecified Status: Acute (3) Insulin dependent diabetes mellitus: Status: Acute (4) Essential (primary) hypertension: Code(s): I10 - Essential (primary) hypertension Status: Acute (5) Tobacco use disorder, continuous: Code(s): F17.209 - Nicotine dependence, unspecified, with unspecified nicotine-induced disorders Status: Acute Additional Plan The patient has had multiple syncopal episodes over the past couple of months and his history seems to be consistent with orthostatic hypotension though with his tachycardia we cannot rule out cardiac dysrhythmia. He may have autonomic dysfunction as well from his diabetes. He has stop taking his lisinopril and he may not need this any longer due to his weight loss. Will check orthostatic vital signs and monitor the patient on telemetry overnight. Echocardiogram has been ordered for further evaluation. Fall precautions will be initiated. We discussed the importance of changing positions slowly, for instance dangling at the side of the bed before getting up. It does not sound as though he has had issues with low glucose. He has not been eating as much as usual since he had the teeth extracted in his upper jaw, and he does appear a bit dry on exam thus he will be hydrated overnight. Continue basal insulin. Initiate sliding scale insulin, Accu-Cheks, and hypoglycemic protocol. The rest of his home medications will be reviewed and resumed as appropriate. Smoking cessation is encouraged and was discussed. He declines the need for nicotine patch at this time. 01/31/2022: Pt. is not orthostatic and he has remaine with Stable VS and unremarkable labs today. MRI was without any remarkable findings as was carotid doppler. We are waiting on the ECHO to be read and the report from Dr. Reddy's evaluation. BP is stable, and his A1C was 6.2. He has no new issues to report today. Time Spent With Patient Time with patient: 15 - 25 minutes Subjective Date/time seen: 01/31/22 1000 This pt. was examined at the bedside in interval exam. He has a very flat affect and is not forthcoming with a lot of information. He was admitted for multiple episodes of Syncope and for a rapid heart rate. He is being evaluated by Neurology today, as well as undergoing an ECHO, Carotid dopplers, Brain MRI and he had a head CT that was negative yesterday. Carotid dopplers show no significant stenosis, and Brain MRI is unremarkable as well. The pt. will be evaluated by Dr. Reddy and recommendations will be made. In the meantime, the pt. has no complaints, concerns or symptoms to report. Review of Systems Review of Systems: All systems reviewed & are unremarkable except as noted in HPI and below Exam Narrative: General: Well-developed, thin male sitting up in bed. Weight: 62 kg. BMI: 19.6. HEENT: Normocephalic, atraumatic. Pupils approximately 4 to 5 mm and are sluggishly reactive. Sclerae anicteric. Tacky mucous membranes. Neck: Supple. No JVD or carotid bruits. No thyromegaly. Respiratory: Lungs are clear to auscultation bilaterally. Cardiovascular: Tachycardic with S1-S2. Telemetry shows sinus tachycardia. No significant murmur. Gastrointestinal: Abdomen is soft, nontender, and nondistended with positive bowel sounds. Skin: Warm and dry. No rash or lesions on limited exam. Extremities: No cyanosis, clubbing, or edema. Radial and pedal pulses intact. Neurological: Alert and oriented x4. Cranial nerves 2-12 are grossly intact. Speech is clear. No facial asymmetry. No gross focal deficits to casual conversation. Psychiatric: Pleasant and cooperative with normal mood and affect. Judgment and insight intact. Objective Data Vital Signs Vital Signs: Vital Signs - 24 hr 01/30/22 14:56 01/30/22 20:07 01/30/22 20:08
[2022-01-31] MEDS: HYDROcodone/acetaminophen (*CRX) 7.5-325 MG TABLET 1 TAB PO (15:04)
[2022-01-31 16:38] LABS: Glucose Point of Care 147 mg/dl (65-105)
[2022-01-31] MEDS: AMITRIPTYLINE HCL 25 MG TABLET 50 MG PO (20:01)
[2022-01-31] MEDS: ESCITALOPRAM OXALATE 10 MG TABLET PO (20:01)
--- NOTE | 2022-01-31 20:17 | PC.NURSE ---
Pt unable to tell if dizzy/lightheadedness has improved since he has been in bed all day.
[2022-01-31 20:23] LABS: Glucose Point of Care 175 mg/dl (65-105)
--- NOTE | 2022-01-31 22:42 | ECHO_ITS ---
Patient Info Name: Gamaliel Moscoso Age: 61 years : 1960 Gender: Male Ht: 70 in Wt: 136 lbs BSA: 1.74 m2 HR: 92 bpm BP: 122 / 74 mmHg Heart Rhythm: Sinus Rhythm Technical Quality: Fair Exam Date: 01/31/2022 7:48 AM Exam Location: [facility] Card Pulmonary Patient Status: Outpatient Admit Date: 01/30/2022 Staff Ordering Physician: Bhavani Ortiz PA-C Rug Clipper: Michelle Aviles RDCS Attending Provider: Clemencia Lancaster Referring Physician: Angel DUKE; Exam Type: CA echo doppler w bubble study Study Info Indications - Recurrent syncope Complete two-dimensional, color flow and Doppler transthoracic echocardiogram is performed. Summary 1. Complete two-dimensional, color flow and Doppler transthoracic echocardiogram is performed. 2. Left ventricular chamber dimension is normal. 3. Left ventricular systolic function is normal, estimated at 60-65%. 4. The left ventricular diastolic function is normal. 5. E/e' 9 is minimally elevated. 6. No pulmonary hypertension, estimated pulmonary arterial systolic pressure is 18 mmHg. Left Ventricle E/e' 9 is minimally elevated. Left ventricular chamber dimension is normal. Left ventricular systolic function is normal, estimated at 60-65%. The left ventricular diastolic function is normal. Right Ventricle Right ventricular systolic function is normal and with normal TAPSE 1.7 cm. Right ventricular chamber dimension is normal. Left Atria Left atrial chamber dimension is normal. Right Atria Right atrial chamber dimension is normal. Atrial Septum Agitated saline injection with and without valsalva maneuver opacified right cardiac chambers without shunt to left cardiac chambers. Intact interatrial septum visualized by 2D and agitated saline imaging. Aortic Valve The aortic valve is probable trileaflet. There is no aortic valve stenosis. There is no aortic valve regurgitation. Pulmonic Valve There is no pulmonic regurgitation. Mitral Valve There is no mitral valve stenosis. There is no mitral valve regurgitation. Tricuspid Valve There is no tricuspid valve regurgitation. No pulmonary hypertension, estimated pulmonary arterial systolic pressure is 18 mmHg. Pericardium/Pleural There is no pericardial effusion. Inferior Vena Cava Normal inferior vena cava with >50% collapse upon inspiration consistent with normal right atrial pressure, 5 mmHg. Aorta The aortic root size at the sinus of Valsalva is not well visualized. Left Ventricular Outflow Tract Name Value Normal LVOT 2D LVOT Diameter 2.0 cm LVOT Doppler LVOT Peak Gradient 4 mmHg LVOT Mean Gradient 2 mmHg LVOT VTI 13 cm LVOT VTI/AV VTI Ratio 0.7 LVOT Stroke Volume 39 ml LVOT CO 3.8 l/min LVOT CI 2.2 l/min/m2 Pulmonic Valve Name Value
[2022-02-01] VITALS (14 sets, daily range): BP systolic 85–119; BP diastolic 51–85; PULSE 86–127; RESP 14–18; TEMP 36.1–36.8; O2SAT 96–98
[2022-02-01] MEDS: HYDROcodone/acetaminophen (*CRX) 7.5-325 MG TABLET 1 TAB PO ×3 (04:28→17:55)
[2022-02-01 08:33] LABS: Glucose Point of Care 147 mg/dl (65-105)
--- NOTE | 2022-02-01 09:06 | WPDNEUROLOGY ---
Neurology EEG Report General Information Date of Study: 02/01/22 TEST eeg EEG NUMBER [id number]
--- NOTE | 2022-02-01 09:08 | P.NEURO_ITS ---
Neurology EEG Report General Information Date of Study: 02/01/22 TEST eeg DIAGNOSIS Questionable seizures CONDITION OF RECORDING awake drowsy and sleep EEG NUMBER [id number] CLINICAL HISTORY patient reported within the last couple weeks he had lost consciousness several times is getting dizzy and then passing out EEG DESCRIPTION basic resting occipital frequency consists of moderate amount of low voltage 8 to 10 hertz per 2nd alpha admixed with minimal amount of low-voltage 15 to 21 hertz per 2nd beta posterior. During drowsiness low-voltage beta activity seen diffusely. Bilateral symmetrical sleep activity seen during sleep. Hyperven tilation not done. Photic stimulation not done. Non paroxysmal. Nonfocal. Nonlateralizing. IMPRESSION No significant abnormalities noted
[2022-02-01] MEDS: PANTOPRAZOLE 40 MG TABLET PO ×2 (09:17→17:35)
[2022-02-01] MEDS: FLUTICASONE PROPIONATE 0.05% NA SPR 16 GM BTL (*BKC) 1 SPRAY NASAL ×2 (09:17→17:35)
[2022-02-01 11:49] LABS: Hematocrit 40.4 % (42.0-52.0); Mean Corpuscular HGB Conc 34.7 g/dl (32-36); Mean Corpuscular Hemoglobin 35.3 pg (26-34); Mean Corpuscular Volume 101.8 fl (80-100); Mean Platelet Volume 10.4 fl (7.4-10.4); Platelet Count Result 189 k/mm3 (150-375); Red Blood Count 3.97 M/mm3 (4.6-6.20); Red Cell Distribution Width 12.1 % (11.5-14.5); White Blood Count 8.4 K/mm3 (4.5-10.0)
[2022-02-01 12:02] LABS: Anion Gap 2 mmol/L (8-16); Blood Urea Nitrogen 10 mg/dL (9-20); Calcium 7.8 mg/dL (8.4-10.2); Carbon Dioxide 31 mmol/L (22-30); Chloride 98 mmol/L (98-107); Estimated CRCL calculation 116 ml/min; Estimated Glomerular Filt Rate > 60; Glucose 227 mg/dL (65-110); Magnesium 1.2 mg/dL (1.6-2.3); Potassium 3.5 mmol/L (3.4-5.0); Sodium 131 mmol/L (137-145)
[2022-02-01 12:11] LABS: Glucose Point of Care 236 mg/dl (65-105)
--- NOTE | 2022-02-01 12:36 | WPDNEUROPN ---
Subjective Date/time seen: 02/01/22 12:36 seen for recurrent syncopal episodes, carotid study is negative with less than 50% stenosis bilaterally by ultrasound, and MRI revealed no evidence of any lesion in the brain except the mild diffuse age-related changes and scattered foci of nonspecific white matter T2 hyperintensity consistent with chronic small vessel disease and left maxillary sinus predominant sinus disease, routine lab with MCV of 101.8 blood sugar of 236 and toxicology positive for the opiates and cannabinoids. Final diagnosis is orthostatic hypotension recurrent with autonomic neuropathy Objective Data Vital Signs Vital Signs: Vital Signs - 24 hr 01/31/22 14:00 01/31/22 14:45 01/31/22 16:00 Temperature 36.1 C L Pulse Rate 93 81 Respiratory Rate 16 Blood Pressure 136/84 111/82 Pulse Oximetry 97 01/31/22 20:00 01/31/22 20:20 01/31/22 20:23 Temperature 36.4 C 36.8 C Pulse Rate 81 94 103 H Respiratory Rate 18 18 Blood Pressure 119/70 110/71 Pulse Oximetry 97 97 01/31/22 20:26 01/31/22 21:56 02/01/22 00:00 Temperature 36.4 C 36.4 C Pulse Rate 120 H 94 91 Respiratory Rate 20 18 Blood Pressure 106/80 119/70 Pulse Oximetry 98 97 02/01/22 04:00 02/01/22 05:26 02/01/22 08:16 Temperature 36.8 C Pulse Rate 92 90 Respiratory Rate 18 Blood Pressure 119/85 Pulse Oximetry 98 97 Intake/Output Intake/Output: Intake & Output 01/29/22 01/30/22 01/31/22 02/01/22 23:59 23:59 23:59 23:59 Intake Total 1580 450 Output Total 1200 Balance 380 450 Meds/Results Medications: Active Medications Generic Name Dose Route Start Last Admin Trade Name Freq PRN Reason Stop Dose Admin Acetaminophen 650 mg 01/30/22 22:44 Acetaminophen 325 Mg Tablet PO Q6H PRN Mild Pain (1-3) or Fever Hydrocodone Bitart/Acetaminophen 1 tab 01/30/22 22:47 02/01/22 09:17 Hydrocodone/Acetaminophen (*Crx) 7.5-325 Mg Tablet PO 1 tab Q4H PRN Administration Pain Rated 4-6 Amitriptyline HCl 50 mg 01/30/22 22:50 01/31/22 20:01 Amitriptyline Hcl 25 Mg Tablet PO 50 mg HS CARLIE Administration Cyclobenzaprine HCl 10 mg 01/30/22 22:47 Cyclobenzaprine Hcl 10 Mg Tablet PO TID PRN muscle spasm Dextrose 12.5 gm 01/30/22 22:42 Dextrose 50% 25 Gm/50 Ml Syringe IV PUSH PRN PRN Hypoglycemia Protocol Escitalopram Oxalate 10 mg 01/30/22 23:00 01/31/22 20:01 Escitalopram Oxalate 10 Mg Tablet PO 10 mg HS CARLIE Administration Fluticasone Propionate 1 spray 01/31/22 09:00 02/01/22 09:17 Fluticasone Propionate 0.05% Na Spr 16 Gm Btl (*Bkc) NASAL 1 spray BID CARLIE Administration Glucagon 1 mg 01/30/22 22:42 Glucagon For Inj 1 Mg Vial IM PRN PRN Hypoglycemia Protocol Glucose 15 gm 01/30/22 22:42 Glucose Oral Gel 15 Gm Of Glucse In 37.5 Gm Tube PO PRN PRN Hypoglycemia Protocol Dextrose 1,000 mls @ 100 mls/hr 01/30/22 22:42 Dextrose 5% 1,000 Ml IVPB PRN PRN Hypoglycemia Protocol Magnesium Sulfate 4 gm in 100 mls @ 100 mls/hr 02/01/22 12:12 Magnesium Sulf 4 Gm/[id number] IVPB 02/01/22 13:11 ONCE ONE Insulin Aspart 2 - 5 units 01/31/22 08:00 02/01/22 09:09 Insulin Aspart (*Bkc) 100 Units/Ml SUB-Q Not Given TIDWM CARLIE Protocol Non-Formulary Medication 3 unit 01/31/22 09:00 01/31/22 17:18 Insulin Lispro [Humalog Kwikpen Insulin] SUB-Q 03/02/22 08:59 Not Given TID CARLIE Pantoprazole Sodium 40 mg 01/31/22 09:00 02/01/22 09:17 Pantoprazole 40 Mg Tablet PO 40 mg BID CARLIE Administration Perflutren Lipid Microsphere 0 ml 01/30/22 22:42 Perflutren Lipid Microspheres 1.5 Ml Vial Diluted To 10 Ml Total Volume IV PUSH ONCE PRN adequate visualization Protocol Radiology Results: ITS Impressions Chest X-Ray 01/30/22 15:52 IMPRESSION: 1. No acute cardiopulmonary disease. Head CT 01/30/22 16:16 IM
[2022-02-01] MEDS: INSULIN ASPART (*BKC) 100 UNITS/ML SUB-Q ×2 (12:56→17:34)
--- NOTE | 2022-02-01 13:24 | PM.IMPN ---
Progress Note: A&P Assessment and Plan (1) Recurrent syncope: Code(s): R55 - Syncope and collapse Status: Acute Assessment and Plan: The patient has had multiple syncopal episodes over the past couple of months and his history seems to be consistent with orthostatic hypotension\ Was noted to be orthostatic presentation. Most recent orthostatics yesterday with 27 point systolic BP from standing to sitting. Recheck orthostatics today Implement fall precautions. Kenneth barney May have autonomic dysfunction secondary to diabetes He has stopped taking lisinopril following weight loss (2) Sinus tachycardia: Code(s): R00.0 - Tachycardia, unspecified Status: Acute Assessment and Plan: Presented with sinus tachycardia which has resolved May have been due to orthostasis Patient is on telemetry though readings are not visible at this time. Nursing staff aware and working on this. Continue to monitor on telemetry (3) Insulin dependent diabetes mellitus: Status: Acute Assessment and Plan: A1c is 6.2. Blood sugars have been generally well controlled, today blood sugar little bit higher in the 230s Continue Accu-Cheks, sliding scale insulin, hypoglycemic protocol Patient takes scheduled NovoLog 3 units with meals - will resume this (4) Tobacco use disorder, continuous: Code(s): F17.209 - Nicotine dependence, unspecified, with unspecified nicotine-induced disorders Status: Acute Assessment and Plan: Patient smokes 1 pack per day Continue to reinforce smoking cessation' Declines need for nicotine patch (5) Hypomagnesemia: Code(s): E83.42 - Hypomagnesemia Status: Acute Assessment and Plan: Magnesium is 1.2 Administer 4 g IV magnesium Monitor magnesium levels closely Subjective Date/time seen: 02/01/22 13:24 Interval history: Date of service 02/01/2022 Gamlaiel Moscoso is a 61-year-old male with a history of type 2 diabetes mellitus, hypertension, hereditary optic neuropathy, and syncope who is seen in follow-up after having multiple syncopal episodes. Today he is feeling better. He denies any recent episodes of dizzy spells. He has not had any syncopal episodes. He does feel a bit shaky with ambulation but is able to get around his room. He denies feeling weak. He denies chest pain or palpitations. No nausea, vomiting, fever, chills, abdominal pain, diarrhea. Review of Systems Review of Systems: All systems reviewed & are unremarkable except as noted in HPI and below Exam Narrative: General: Thin, well-appearing 61year-old male, sitting up in bed, comfortable, NARD Neuro: awake, alert and oriented x4, speech clear, no focal neuro deficits noted HEENMT: normocephalic, atraumatic, EOMI, sclerae anicteric, moist oral mucosa Respiratory: clear to auscultation bilaterally, nonlabored breathing Cardio: regular rate, regular rhythm with S1-S2 Abdomen: nondistended, normoactive bowel sounds, soft, nontender to palpation Extremities: no edema, erythema, or tenderness to palpation, DP pulses 2+ bilaterally Skin: no rashes or lesions, warm and dry Psych: appropriate mood and affect, judgment and insight intact Objective Data Vital Signs Vital Signs: Vital Signs - 24 hr 01/31/22 14:00 01/31/22 14:45 01/31/22 16:00 Temperature 97.0 F L Pulse Rate 93 81 Respiratory Rate 16 Blood Pressure 136/84 111/82 Pulse Oximetry 97 01/31/22 20:00 01/31/22 20:20 01/31/22 20:23 Temperature 97.6 F 98.2 F Pulse Rate 81 94 103 H Respiratory Rate 18 18 Blood Pressure 119/70 110/71 Pulse Oximetry 97 97 01/31/22 20:26 01/31/22 21:56 02/01/22 00:00 Temperature 97.6 F 97.6 F Pulse Rate 120 H 94 91 Respiratory Rate 20 18 Blood Pressure 106/80 119/70 Pulse Oximetry 98 97 02/01/22 04:00 02/01/22 05:26 02/01/22 08:16 Temperature 98.2 F Pulse Rate 92 90 Respiratory Rate 18 Blood Pressure 119/85
--- NOTE | 2022-02-01 15:06 | PC.NURSE ---
On 02/01/22, the student, [ Jason Perry], provided care and completed [facility] documentation on this patient. I have reviewed the student's documentation and agree with the findings.
[2022-02-01 17:29] LABS: Glucose Point of Care 153 mg/dl (65-105)
[2022-02-01] MEDS: MAGNESIUM SULF 4 GM/WATER100ML 4 GM/100 ML BAG IVPB (17:34)
[2022-02-01] MEDS: ESCITALOPRAM OXALATE 10 MG TABLET PO (20:21)
[2022-02-01] MEDS: AMITRIPTYLINE HCL 25 MG TABLET 50 MG PO (20:21)
[2022-02-01 20:47] LABS: Glucose Point of Care 85 mg/dl (65-105)
[2022-02-02] VITALS (16 sets, daily range): BP systolic 84–134; BP diastolic 64–96; PULSE 81–119; RESP 18; TEMP 36.1–36.3; O2SAT 96–100
[2022-02-02] MEDS: HYDROcodone/acetaminophen (*CRX) 7.5-325 MG TABLET 1 TAB PO ×4 (01:18→15:26)
[2022-02-02 06:33] LABS: Anion Gap 5 mmol/L (8-16); Blood Urea Nitrogen 7 mg/dL (9-20); Calcium 7.9 mg/dL (8.4-10.2); Carbon Dioxide 26 mmol/L (22-30); Chloride 102 mmol/L (98-107); Estimated CRCL calculation 114 ml/min; Estimated Glomerular Filt Rate > 60; Glucose 111 mg/dL (65-110); Magnesium 2.3 mg/dL (1.6-2.3); Potassium 3.5 mmol/L (3.4-5.0); Sodium 133 mmol/L (137-145)
[2022-02-02 06:37] LABS: Hematocrit 40.9 % (42.0-52.0); Mean Corpuscular HGB Conc 34.2 g/dl (32-36); Mean Corpuscular Hemoglobin 34.9 pg (26-34); Mean Platelet Volume 10.3 fl (7.4-10.4); Platelet Count Result 194 k/mm3 (150-375); Red Blood Count 4.01 M/mm3 (4.6-6.20); Red Cell Distribution Width 11.9 % (11.5-14.5); White Blood Count 8.7 K/mm3 (4.5-10.0)
[2022-02-02 07:42] LABS: Glucose Point of Care 149 mg/dl (65-105)
[2022-02-02] MEDS: INSULIN ASPART (*BKC) 100 UNITS/ML SUB-Q ×3 (08:56→18:05)
[2022-02-02] MEDS: FLUTICASONE PROPIONATE 0.05% NA SPR 16 GM BTL (*BKC) 1 SPRAY NASAL ×2 (08:58→18:05)
[2022-02-02] MEDS: PANTOPRAZOLE 40 MG TABLET PO ×2 (08:58→18:05)
[2022-02-02] MEDS: MIDODRINE HCL 2.5 MG TABLET PO ×2 (08:58→15:27)
[2022-02-02 11:23] LABS: Glucose Point of Care 161 mg/dl (65-105)
--- NOTE | 2022-02-02 13:09 | PM.IMPN ---
Progress Note: A&P Assessment and Plan (1) Recurrent syncope: Code(s): R55 - Syncope and collapse Status: Acute Assessment and Plan: The patient has had multiple syncopal episodes over the past couple of months and his history seems to be consistent with orthostatic hypotension\ Was noted to be orthostatic presentation. Most recent orthostatics yesterday with 27 point systolic BP from standing to sitting. - This AM the pt. was started on Midodrine 2.5 mg po TID and also his Elavil dose was cut to 25 mg from 50 mg. To this point his repeat orthostatics are negative. - If stable overnight, will be able to discharge. (2) Sinus tachycardia: Code(s): R00.0 - Tachycardia, unspecified Status: Acute Assessment and Plan: Presented with sinus tachycardia which has resolved - Pt's orthostasis has resolved but he remains mildly tachycardic. - Will continue to monitor. (3) Insulin dependent diabetes mellitus: Status: Acute Assessment and Plan: A1c is 6.2. Blood sugars have been generally well controlled, today blood sugar little bit higher in the 230s Continue Accu-Cheks, sliding scale insulin, hypoglycemic protocol Patient takes scheduled NovoLog 3 units with meals - will resume this (4) Tobacco use disorder, continuous: Code(s): F17.209 - Nicotine dependence, unspecified, with unspecified nicotine-induced disorders Status: Acute Assessment and Plan: Patient smokes 1 pack per day Continue to reinforce smoking cessation' Declines need for nicotine patch (5) Hypomagnesemia: Code(s): E83.42 - Hypomagnesemia Status: Acute Assessment and Plan: - Magnesium is 2.3 today and stable. Time Spent With Patient Time with patient: 15 - 25 minutes Subjective Date/time seen: 02/02/22 [id number] This pt. was examined at the bedside in interval assessment. He has no current complaints and appears to be improving today. NO dizziness and no lightheadedness in addition to no syncopal episodes today. He was initially orthostatic this morning and after review of his medications, his Elavil dose is decreased from 50 mg to 25 mg at HS and he is started on Midodrine 2.5 mg po TID. Pt. is also not hypertensive while lying supine. We will continue to monitor and if he is stable, we will discharge to home tomorrow. Review of Systems Review of Systems: A full 12 point ROS was performed and is otherwise negative with exception of what is noted in HPI. All systems reviewed & are unremarkable except as noted in HPI and below Exam Narrative: General: Thin, well-appearing 61year-old male, sitting up in bed, comfortable, NARD Neuro: awake, alert and oriented x4, speech clear, no focal neuro deficits noted HEENMT: normocephalic, atraumatic, EOMI, sclerae anicteric, moist oral mucosa Respiratory: clear to auscultation bilaterally, nonlabored breathing Cardio: regular rate, regular rhythm with S1-S2 Abdomen: nondistended, normoactive bowel sounds, soft, nontender to palpation Extremities: no edema, erythema, or tenderness to palpation, DP pulses 2+ bilaterally Skin: no rashes or lesions, warm and dry Psych: appropriate mood and affect, judgment and insight intact Objective Data Vital Signs Vital Signs: Vital Signs - 24 hr 02/01/22 13:50 02/01/22 16:00 02/01/22 18:20 Temperature 97 F L Pulse Rate 92 90 104 H Respiratory Rate 14 Blood Pressure 112/79 87/51 L Pulse Oximetry 97 02/01/22 18:22 02/01/22 18:24 02/01/22 20:00 Temperature 97.0 F L Pulse Rate 115 H 125 H 91 Respiratory Rate 18 Blood Pressure 98/69 L 85/61 L 106/64 Pulse Oximetry 97 02/01/22 21:20 02/01/22 22:00 02/02/22 00:00 Temperature 97.0 F L Pulse Rate 91 81 Respiratory Rate 18 Blood Pressure 106/64 Pulse Oximetry 96 97 02/02/22 04:00 02/02/22 05:55 02/02/22 06:00 Temperature 97.3 F L 97.3 F L Pulse Rate 81 89 102 H Respiratory Rate 18 18 Blood Pressu
[2022-02-02 16:23] LABS: Glucose Point of Care 113 mg/dl (65-105)
[2022-02-02] MEDS: ESCITALOPRAM OXALATE 10 MG TABLET PO (21:21)
[2022-02-02] MEDS: AMITRIPTYLINE HCL 25 MG TABLET PO (21:21)
[2022-02-02 21:56] LABS: Glucose Point of Care 90 mg/dl (65-105)
[2022-02-03] VITALS: PULSE 84
[2022-02-03] MEDS: HYDROcodone/acetaminophen (*CRX) 7.5-325 MG TABLET 1 TAB PO ×2 (00:55→06:58)
[2022-02-03 04:00] VITALS: PULSE 91
[2022-02-03 06:00] VITALS: BP 134/85; PULSE 89; RESP 18; TEMP 36.4; O2SAT 100
[2022-02-03 08:00] VITALS: PULSE 89; RESP 18; O2SAT 100
[2022-02-03 08:06] LABS: Glucose Point of Care 142 mg/dl (65-105)
[2022-02-03] MEDS: INSULIN ASPART (*BKC) 100 UNITS/ML SUB-Q (08:41)
[2022-02-03] MEDS: PANTOPRAZOLE 40 MG TABLET PO (08:42)
[2022-02-03] MEDS: MIDODRINE HCL 2.5 MG TABLET 5 MG PO (08:42)
[2022-02-03] MEDS: FLUTICASONE PROPIONATE 0.05% NA SPR 16 GM BTL (*BKC) 1 SPRAY NASAL (08:42)
--- NOTE | 2022-02-03 11:15 | PM.DS ---
DS: Admitting Diagnosis Discharge Date 02/03/2022 Admitting Diagnosis 1) Recurrent Syncope 2) Sinus tachycardia 3) IDDM 4) HTN 5) Tobacco use disorder DS: Discharge Diagnosis Discharge Diagnosis (1) Recurrent syncope: Code(s): R55 - Syncope and collapse Status: Acute Assessment and Plan: The patient has had multiple syncopal episodes over the past couple of months and his history seems to be consistent with orthostatic hypotension\ Was noted to be orthostatic presentation. Most recent orthostatics yesterday with 27 point systolic BP from standing to sitting. - This AM the pt. was started on Midodrine 2.5 mg po TID and also his Elavil dose was cut to 25 mg from 50 mg. To this point his repeat orthostatics are negative. - If stable overnight, will be able to discharge. - 02/03/22, date of discharge - It has been determined that the patient was orthostatic per Neurology. Review of his home medications shows Amitryptyline 50 mg po QHS. This can contribute to Orthostasis and it was weaned from 50 mg to 25 mg and the pt. tolerated fine. In addition, Midodrine was started and we have uptitrated to 5 mg po TID and pt. has tolerated fine. He has no further dizziness, light headedness, or headache. He reports he feels better and is ready to go home. Pt. has a follow up appointment scheduled with Dr. Park on 02/13/22 that he has verbalized that he will keep. (2) Sinus tachycardia: Code(s): R00.0 - Tachycardia, unspecified Status: Resolved Assessment and Plan: Presented with sinus tachycardia which has resolved - Pt's orthostasis has resolved but he remains mildly tachycardic. - Will continue to monitor. - 02/03/22, date of discharge - RESOLVED now (3) Insulin dependent diabetes mellitus: Status: Acute Assessment and Plan: A1c is 6.2. Blood sugars have been generally well controlled, today blood sugar little bit higher in the 230s Continue Accu-Cheks, sliding scale insulin, hypoglycemic protocol Patient takes scheduled NovoLog 3 units with meals - will resume this - 02/03/22, date of discharge - Continue home medications. PCP to adjust and monitor as needed. (4) Tobacco use disorder, continuous: Code(s): F17.209 - Nicotine dependence, unspecified, with unspecified nicotine-induced disorders Status: Acute Assessment and Plan: Patient smokes 1 pack per day Continue to reinforce smoking cessation' Declines need for nicotine patch - 02/03/22, date of discharge - Pt. was instructed on smoking cessation and the benefits to the body of stopping. (5) Hypomagnesemia: Code(s): E83.42 - Hypomagnesemia Status: Resolved Assessment and Plan: - Magnesium is 2.3 today and stable. - 02/03/22, date of discharge - Stable and resolved. DS: Summary Hospital Course Reason for hospitalization: Syncope Hospital Course: This very pleasant 61 year old male patient with insulin-dependent diabetes, hypertension, GERD, depression, anxiety who presented to the emergency department for evaluation of multiple syncopal episodes. He endorsed that these episodes had a prodrome of him feeling light headed and dizzy. At the same time, at his PCP's office, he was showing Tachycardia on EKG and was thus sent to the ER for evaluation. He was admitted to the hospital and worked up with ultimately reaching a diagnosis of Orthostatic Hypotension. He remained on telemetry and remained NSR-ST during his entire stay. Over the past 24 hours, he has remained in NSR without any Tachycardia. To correct the patient's Orthostasis, he was weaned down to 25 mg with his Amytriptyline, and the goal will be to wean him off over the next ten days. In addition he was started on and uptitrated on Midodrine to 5 mg TID without any significant rise in BP lying supine. He has remained asymptomatic since starting these. Pt. is stable, reports he is feeling much better and has had a favorable course during his hos
== END 2022-02-03 12:15 | disposition home or self-care (01) | DRG 204 ==
LOC: ANHED 15:19 → ANH3MEDSUR 18:55
PROVIDERS: Physician Assistant; Admitting Provider Internal Medicine; Emergency Provider Emergency Medicine; PCP Family Medicine; Visit Provider Nurse Practitioner Adult Health
DX: I95.1 Orthostatic hypotension (principal); R00.0 Tachycardia, unspecified; E83.42 Hypomagnesemia; K21.9 Gastro-esophageal reflux disease without esophagitis; I10 Essential (primary) hypertension; F41.9 Anxiety disorder, unspecified; F32.A Depression, unspecified; E10.42 Type 1 diabetes mellitus with diabetic polyneuropathy; H46.9 Unspecified optic neuritis; F17.210 Nicotine dependence, cigarettes, uncomplicated; Z90.49 Acquired absence of other specified parts of digestive tract
CPT/HCPCS: 36415; 70450; 70553; 71045; 80048; 80053; 80307; 81001; 82550; 82948; 83036; 83735; 84443; 84484; 85025; 85027; 85380; 85610; 85730; 93005; 93306; 93880; 95816; 96361; 96365; 96375; 99285; A9270; A9577; G0378; J1815; J3475; J7030

== ENCOUNTER 2023-05-01 19:00 | Emergency (ER) | payer MEDICARE, SELFPAY ==
--- NOTE | ~2023-05-01 | XR_ITS ---
EXAMINATION: [id number] Exam Date/Time: 05/01/2023 19:30 CDT HISTORY: rt post rib pain s/p fall 2 days ago SMOKER Comparison: 01/06/2020. RESULT: Lines, tubes, and devices: None. Lungs and pleura: Clear. Cardiothymic silhouette: Stable. Other: Nondisplaced right ninth posterior lateral rib fracture. No acute upper abdominal finding. Hoffman rgical clips over the upper abdomen. Chronic pancreatic calcifications. IMPRESSION: No acute cardiopulmonary process. Nondisplaced right ninth posterior lateral rib fracture. Reviewed, dictated and finalized at location K. IMPRESSION: No acute cardiopulmonary process. Nondisplaced right ninth posterior lateral ri b fracture.
[2023-05-01 19:13] VITALS: BP 119/83; PULSE 139; RESP 16; TEMP 37.2; O2SAT 99
--- NOTE | 2023-05-01 19:13 | ED.BACK ---
HPI - Back Pain/Injury General Chief Complaint: Back Pain/Injury Stated Complaint: Back pain Time Seen by Provider: 05/01/23 19:13 Source: patient Mode of arrival: ambulatory Limitations: no limitations History of Present Illness HPI Narrative: 62-year-old male presents with complaint of right-sided rib pain. Reports that he fell 3 days ago. Patient states his kitchen chairs are too low and he fell forward while trying to sit on chair. hit R ribs on chair. Patient states he fell forward and hit left eyebrow on floor. States he did have pain to his left forehead but it has resolved. No LOC. Ambulatory with steady gait. Patient is legally blind but can see peripherally. Continues to right rib pain, feels short of breath when trying to take a deep breath. Patient is here with his sister and niece who states he smoked on the way here and has not appeared to be having difficulty breathing. History of chronic back pain. Takes Flexeril and hydrocodone daily. Patient is alert and talkative. Answering all questions appropriately. All systems reviewed and negative except as noted above. Related Data Home Medications Medication Instructions Recorded Confirmed insulin lispro 100 unit/mL 3 unit subcut TID 01/30/22 05/01/23 subcutaneous pen (Humalog KwikPen (U-100) Insulin) Allergies Allergy/AdvReac Type Severity Reaction Status Date / Time No Known Allergies Allergy Verified 05/01/23 19:09 Review of Systems Review of Systems: CONSTITUTIONAL: Denies fever, chills, or sweats. EYES: Denies visual changes, redness, or discharge. ENT: Denies rhinorrhea, congestion, sore throat, or otalgia. CARDIOVASCULAR: Denies chest pain, palpitations, or edema. RESPIRATORY: Denies cough or dyspnea. GASTROINTESTINAL: Denies abdominal pain, nausea, vomiting, or diarrhea. GENITOURINARY: Denies dysuria or hematuria. SKIN: Denies rash or itching. MUSCULOSKELETAL: Denies back pain, joint pain, or myalgia. Reports lateral right rib pain. NEUROLOGIC: Denies headache, numbness, or weakness. PSYCHIATRIC: Denies anxiety or depression. All other systems reviewed are negative, except as documented in HPI. [facility] Past Medical History Medical History (Updated 05/01/23 @ 20:13 by Shirley Vega NP) At moderate risk for fall BMI 20.0-20.9, adult Chronic depression Chronic pancreatitis Amylase elevated at 221 with lipase less than 5 on 05/25/2022. amylase 66 with lipase less than 5 on 03/02/2023 Chronic thoracic back pain On prescription opioids. Diabetes mellitus, insulin dependent (IDDM), controlled fasting glucose 117 with hemoglobin A1c 5.6 on 05/25/2022. fasting glucose 127 with hemoglobin A1c 6.3 on 03/02/2023. Diabetic neuropathy associated with type 1 diabetes mellitus Elevated liver enzymes (05/25/22) GGT 346, AST 61, ALT 51, alkaline phosphatase 150 on 05/25/2022. GGT 205, AST 42, ALT 37, alkaline phosphatase 147 on 03/02/2023. Encounter for prostate cancer screening PSA normal at 2.31 on 05/25/2022. Essential (primary) hypertension Hypomagnesemia Insomnia Julissa hereditary optic neuropathy legally blind. No central vision. Mild intermittent asthma in adult without complication Nocturia PSA normal at 2.31 on 05/25/2022. Recurrent syncope Situational anxiety Syncope (~01/2022) EEG 02/01/2022 normal. Carotid Doppler study unremarkable 01/30/2022 . Tachycardia (01/29/22) EKG 01/29/2022 with sinus tachycardia with heart rate [address] T wave changes, cannot rule out inferior VT. Echocardiogram 01/31/2022 with ejection fraction 60-65%, unremarkable except for tachycardia heart rate 122. Normal thyroid function with TSH 1.23, free T4 0.9, T3 total 102 on 03/02/2023. Tobacco use disorder, continuous One pack per day , decreased to 1/2 pack daily Uncontrolled type 1 diabetes mellitus with hyperglycemia Glucose 117 with hemoglobin A1c 5.6 and urine microalbumin ratio of 3 on 05/25/2022. Welcome to Medic
[2023-05-01 20:20] VITALS: PULSE 92
== END 2023-05-01 20:20 | disposition home or self-care (01) ==
PROVIDERS: Emergency Provider Nurse Practitioner Family; PCP Family Medicine
DX: S22.31XA Fracture of one rib, right side, initial encounter for closed fracture (principal); W19.XXXA Unspecified fall, initial encounter; E10.40 Type 1 diabetes mellitus with diabetic neuropathy, unspecified; Z79.4 Long term (current) use of insulin; I10 Essential (primary) hypertension; H54.8 Legal blindness, as defined in USA; F32.A Depression, unspecified; F41.8 Other specified anxiety disorders; F17.210 Nicotine dependence, cigarettes, uncomplicated; F12.90 Cannabis use, unspecified, uncomplicated
CPT/HCPCS: 71101; 99213; G0463

== ENCOUNTER 2023-06-20 13:03 | Outpatient (CLI) | payer MEDICARE, SELFPAY ==
[2023-06-20 17:06] LABS: Alanine Aminotransferase 49 U/L (6-50); Albumin Level 3.7 g/dL (3.5-5.1); Alkaline Phosphatase 162 U/L (38-126); Anion Gap 6 mmol/L (8-16); Aspartate Amino Transferase 85 U/L (17-59); Bilirubin,Total 0.4 mg/dL (0.2-1.3); Blood Urea Nitrogen 6 mg/dL (9-20); Calcium 8.9 mg/dL (8.4-10.2); Carbon Dioxide 27 mmol/L (22-30); Chloride 101 mmol/L (98-107); Cholesterol 150 mg/dL (0-200); Estimated Glomerular Filt Rate > 60; Glucose 137 mg/dL (65-110); HDL Direct 63 mg/dL; Potassium 3.5 mmol/L (3.4-5.0); Sodium 134 mmol/L (137-145); Triglycerides 124 mg/dL (<150)
[2023-06-20 17:17] LABS: LDL Cholesterol Direct 71 mg/dL
[2023-06-20 18:31] LABS: Creatinine Urine 185.8 mg/dL
[2023-06-20 18:37] LABS: MALB Creatinine Ratio 12.5 mg/g (0-30); Microalbumin Urine Random 23.3 mg/L (0-16.7)
[2023-06-23 15:58] LABS: C-Peptide 0.22 ng/mL (0.80-3.85)
[2023-06-23 20:31] LABS: Glutamic acid decarboxylase AA <5 IU/mL (<5)
== END 2023-06-20 13:04 | disposition home or self-care (01) ==
LOC: ANHWCLAB 13:05
PROVIDERS: PCP Family Medicine; Visit Provider Internal Medicine
DX: E10.40 Type 1 diabetes mellitus with diabetic neuropathy, unspecified (principal); E10.42 Type 1 diabetes mellitus with diabetic polyneuropathy
CPT/HCPCS: 36415; 80053; 80061; 82043; 84681; 86341

== ENCOUNTER 2023-08-15 10:30 | Outpatient (RCR) | payer MEDICARE, SELFPAY | END 2023-09-16 10:54 | disposition home or self-care (01) | LOC: ANHDMC 10:30 | PROVIDERS: PCP Family Medicine; Visit Provider Internal Medicine | DX: E10.40 Type 1 diabetes mellitus with diabetic neuropathy, unspecified (principal); H54.7 Unspecified visual loss; Z71.89 Other specified counseling | CPT/HCPCS: G0108 ==

== ENCOUNTER 2024-01-16 10:30 | Outpatient (RCR) | payer MEDICARE, SELFPAY | END 2024-01-20 09:47 | disposition home or self-care (01) | LOC: ANHDMC 10:30 | PROVIDERS: PCP Family Medicine; Visit Provider Internal Medicine | DX: E10.40 Type 1 diabetes mellitus with diabetic neuropathy, unspecified (principal); E10.649 Type 1 diabetes mellitus with hypoglycemia without coma; Z71.89 Other specified counseling | CPT/HCPCS: G0108 ==

== ENCOUNTER 2024-01-17 08:08 | Outpatient (CLI) | payer MEDICARE, SELFPAY ==
[2024-01-17 09:36] LABS: Alanine Aminotransferase 32 U/L (6-50); Albumin Level 3.6 g/dL (3.5-5.1); Alkaline Phosphatase 185 U/L (38-126); Anion Gap 11 mmol/L (8-16); Aspartate Amino Transferase 67 U/L (17-59); Bilirubin,Total 0.3 mg/dL (0.2-1.3); Blood Urea Nitrogen 9 mg/dL (9-20); Calcium 8.6 mg/dL (8.4-10.2); Carbon Dioxide 28 mmol/L (22-30); Chloride 99 mmol/L (98-107); Estimated Glomerular Filt Rate > 60; Glucose 233 mg/dL (65-110); Magnesium 1.2 mg/dL (1.6-2.3); Sodium 138 mmol/L (137-145)
[2024-01-17 09:48] LABS: Basophils Absolute Auto 0.1 K/mm3 (0.0-0.1); Eosinophils Absolute Auto 0.2 K/mm3 (0-0.3); Eosinophils Percent Auto 2.1 % (0-4.4); Hemoglobin 14.1 g/dL (14.0-18.0); Immature Granulocyte Absolute 0.13 K/mm3 (0.00-0.031); Immature Granulocyte Percent A 1.3 % (0-0.5); Lymphocytes Absolute Auto 1.84 K/mm3 (0.9-3.2); Lymphocytes Percent Auto 18.7 % (18.3-44.2); Mean Corpuscular HGB Conc 33.6 g/dl (32-36); Mean Corpuscular Hemoglobin 33.3 pg (26-34); Mean Corpuscular Volume 99.1 fl (80-100); Mean Platelet Volume 9.9 fl (7.4-10.4); Monocytes Absolute Auto 0.8 K/mm3 (0.1-0.6); Monocytes Percent Auto 7.9 % (2.6-8.5); Neutrophils Absolute Auto 6.8 K/mm3 (1.3-6.7); Platelet Count Result 314 k/mm3 (150-375); Red Blood Count 4.24 M/mm3 (4.6-6.20); Red Cell Distribution Width 12.6 % (11.5-14.5); White Blood Count 9.9 K/mm3 (4.5-10.0)
[2024-01-17 10:07] LABS: Amylase 127 U/L (30-110); Cholesterol 115 mg/dL (0-200); HDL Direct 50 mg/dL; Lipase 11 U/L (23-300); Triglycerides 119 mg/dL (<150)
[2024-01-17 10:16] LABS: Appearance Urine Clear (Clear); Bacteria Urine None Seen /hpf; Bilirubin Urine 1+ (Negative); Blood Urine Negative (Negative); Color Urine Dark Yellow (Yellow); Glucose Urine UA Negative (Negative); Ketones Urine Trace mg/dL (Negative); Leukocyte Esterase Ur Negative LEU/UL (NEGATIVE); Mucus Urine Present /lpf; Need Manual Microscopic Reviewed; Nitrate Urine Negative (Negative); Protein Urine 1+ mg/dL (Negative); RBC Urine 0-2 /hpf (0-2); Specific Grav Ur 1.032 (1.001-1.035); Squamous Epithelial Cell Urine Occasional /hpf (Few); WBC Urine 0-5 /hpf (0-3); pH Urine 5.5 (5.0-9.0)
[2024-01-17 10:18] LABS: LDL Cholesterol Direct 62 mg/dL
[2024-01-17 10:19] LABS: Add Urine Microscopic? YES
[2024-01-17 11:50] LABS: Hemoglobin A1C 6.7 % (<5.7)
[2024-01-17 12:02] LABS: Vitamin D 25 Hydroxy < 12.8 ng/mL
[2024-01-17 12:39] LABS: Folic Acid 4.5 ng/mL (2.76->20)
[2024-01-20 08:59] LABS: GGT 108 U/L (3-70)
== END 2024-01-17 08:09 | disposition home or self-care (01) ==
PROVIDERS: PCP Family Medicine; Referring Provider Internal Medicine; Visit Provider Family Medicine
DX: E10.42 Type 1 diabetes mellitus with diabetic polyneuropathy (principal); E10.65 Type 1 diabetes mellitus with hyperglycemia; F32.9 Major depressive disorder, single episode, unspecified; E78.2 Mixed hyperlipidemia; H54.7 Unspecified visual loss; K86.0 Alcohol-induced chronic pancreatitis; R00.0 Tachycardia, unspecified; R74.8 Abnormal levels of other serum enzymes
CPT/HCPCS: 36415; 80053; 80061; 81001; 82150; 82248; 82306; 82533; 82607; 82746; 82977; 83036; 83690; 83735; 84439; 84443; 85025; 96372; J0834

== ENCOUNTER 2024-02-10 15:00 | Outpatient (CLI) | payer MEDICARE, SELFPAY ==
--- NOTE | 2024-02-10 15:34 | ECG_ITS ---
Measurements Intervals [place] Rate: 108 P: 79 OR: 144 QRS: 75 QRSD: 90 T: 82 QT: 301 QTc: 404 Interpretive Statements SINUS TACHYCARDIA POSSIBLE LEFT ATRIAL ENLARGEMENT [-0.1mV P WAVE IN V1/V2] ABNORMAL RHYTHM ECG COMPARED TO ECG 01/30/2022 15:01:59 NO SIGNIFICANT CHANGES Electronically Signed On 02-11-2024 8:45:36 CDT by Rodolfo Hollingsworth M.D.
[2024-02-10 15:51] LABS: Basophils Absolute Auto 0.1 K/mm3 (0.0-0.1); Basophils Percent Auto 0.6 % (0.2-1.2); Eosinophils Absolute Auto 0.1 K/mm3 (0-0.3); Eosinophils Percent Auto 1.2 % (0-4.4); Hematocrit 42.4 % (42.0-52.0); Hemoglobin 14.8 g/dL (14.0-18.0); Immature Granulocyte Absolute 0.11 K/mm3 (0.00-0.031); Immature Granulocyte Percent A 1.1 % (0-0.5); Lymphocytes Absolute Auto 1.68 K/mm3 (0.9-3.2); Lymphocytes Percent Auto 16.9 % (18.3-44.2); Mean Corpuscular HGB Conc 34.9 g/dl (32-36); Mean Corpuscular Hemoglobin 33.6 pg (26-34); Mean Corpuscular Volume 96.4 fl (80-100); Monocytes Absolute Auto 0.8 K/mm3 (0.1-0.6); Monocytes Percent Auto 7.8 % (2.6-8.5); Neutrophils Absolute Auto 7.2 K/mm3 (1.3-6.7); Neutrophils Percent Auto 72.4 % (45.5-73.1); Platelet Count Result 234 k/mm3 (150-375); Red Cell Distribution Width 12.7 % (11.5-14.5); White Blood Count 9.9 K/mm3 (4.5-10.0)
[2024-02-10 15:53] LABS: Anion Gap 11 mmol/L (4-12); Blood Urea Nitrogen 13 mg/dL (9-20); Calcium 10.2 mg/dL (8.4-10.2); Carbon Dioxide 22 mmol/L (22-30); Chloride 95 mmol/L (98-107); Estimated Glomerular Filt Rate > 60; Glucose 245 mg/dL (65-110); Magnesium 1.4 mg/dL (1.6-2.3); Potassium 4.1 mmol/L (3.4-5.0); Sodium 128 mmol/L (137-145)
[2024-02-14 05:44] LABS: GGT 216 U/L (3-70)
== END 2024-02-10 15:01 | disposition home or self-care (01) ==
PROVIDERS: PCP Family Medicine; Visit Provider Family Medicine
DX: R74.8 Abnormal levels of other serum enzymes (principal); R55 Syncope and collapse; E87.6 Hypokalemia; R79.0 Abnormal level of blood mineral; R00.0 Tachycardia, unspecified
CPT/HCPCS: 36415; 80048; 82977; 83735; 85025; 93005

== ENCOUNTER 2024-02-17 09:36 | Outpatient (CLI) | payer MEDICARE, SELFPAY ==
[2024-02-17 10:38] LABS: Anion Gap 13 mmol/L (4-12); Blood Urea Nitrogen 10 mg/dL (9-20); Calcium 11.2 mg/dL (8.4-10.2); Carbon Dioxide 27 mmol/L (22-30); Chloride 92 mmol/L (98-107); Estimated Glomerular Filt Rate > 60; Glucose 193 mg/dL (65-110); Magnesium 1.6 mg/dL (1.6-2.3); Potassium 4.3 mmol/L (3.4-5.0); Sodium 132 mmol/L (137-145)
== END 2024-02-17 09:37 | disposition home or self-care (01) ==
PROVIDERS: PCP Family Medicine; Visit Provider Family Medicine
DX: R79.0 Abnormal level of blood mineral (principal); E87.6 Hypokalemia
CPT/HCPCS: 36415; 80048; 83735

== ENCOUNTER 2024-03-18 08:01 | Outpatient (CLI) | payer MEDICARE, SELFPAY ==
--- NOTE | ~2024-03-18 | NM_ITS ---
EXAMINATION: NM sally stress w perfusion DATE: 03/18/2024 09:59 INDICATION: Chest pain, unspecified. TECHNIQUE: Rest images were obtained following intravenous administration of 9.44 mCi Tc99m tetrofosm in (Myoview). The patient was infused intravenously with Lexiscan (regadenoson). Then, 30 mCi Tc99m t etrofosmin (Myoview) was administered intravenously, and stress images were obtained. Data was recons tructed into short axis and horizontal and vertical long axis SPECT images. Gated SPECT images were a lso obtained. COMPARISON: None. FINDINGS: There is no definite reversible or fixed perfusion abnormality to suggest ischemia or infar ction. There is no segmental wall motion abnormality. Left ventricular ejection fraction measures > 70%. IMPRESSION: 1. No definite ischemia or infarct. 2. Normal left ventricular ejection fraction measuring >70%. Reviewed, dictated and finalized at location A.
--- NOTE | 2024-03-18 08:39 | EST_ITS ---
Patient Info Name: Gamaliel Moscoso Age: 63 years : 1960 Gender: Male Ht: 70 in Wt: 130 lbs BSA: 1.69 m2 HR: 122 bpm BP: 111 / 92 mmHg Heart Rhythm: Tachycardia Exam Date: 03/18/2024 9:09 AM Exam Location: Echo Lab Patient Status: Outpatient Admit Date: 03/18/2024 Staff Ordering Physician: Kareem Morrell DO Attending Provider: Kareem Morrell DO Exercise Technologist: Gisella Smith CT Exercise Physician: Kareem Morrell DO Exam Type: CA stress sally w NM Study Info Indications R07.9 - Chest pain, unspecified A regadenoson stress test was performed. Summary 1. 1. Negative lexiscan stress test for ischemic ST changes by ECG criteria. 2. 2. Stable hemodynamics throughout the test. 3. 3. Nuclear scan to follow and will be reported separately. Please correlate with it. 4. 4. Patient informed of the above results. Protocol: Lexiscan Stress ECG Details Stage: REST Duration (min): 1 min : 24 sec HR (bpm): 119 SBP (mmHg): 111 DBP (mmHg): 92 Stage: REST Duration (min): 6 min : 44 sec HR (bpm): 119 SBP (mmHg): 111 DBP (mmHg): 92 Stage: STAGE 1 Duration (min): 0 min : 59 sec HR (bpm): 138 SBP (mmHg): 130 DBP (mmHg): 96 Stage: RECOVERY Duration (min): 1 min : 0 sec HR (bpm): 140 SBP (mmHg): 130 DBP (mmHg): 96 Stage: RECOVERY Duration (min): 2 min : 0 sec HR (bpm): 140 SBP (mmHg): 130 DBP (mmHg): 96 Stage: RECOVERY Duration (min): 2 min : 54 sec HR (bpm): 137 SBP (mmHg): 140 DBP (mmHg): 92 Rest HR: 119 bpm Peak HR: 142 bpm Rest Sys BP: 111 mmHg Peak Sys BP: 140 mmHg Max Pred HR: 159 bpm % Max Pred HR: 89 % Target HR: 135 bpm Max RPP: 19,880 bpm*mmHg Termination Reason: Completed protocol Cardiac Symptoms: Shortness of breath Total Time: 1 min : 0 sec Rest [place] BP: 92 mmHg Peak [place] BP: 92 mmHg Total Dose: 0.4 mg Resting ECG Sinus tachycardia. Stress ECG No ST changes. Arrhythmias None. Report Signatures
== END 2024-03-18 08:02 | disposition home or self-care (01) ==
PROVIDERS: PCP Family Medicine; Visit Provider Internal Medicine Cardiovascular Disease
DX: R07.9 Chest pain, unspecified (principal)
CPT/HCPCS: 78452; 93017; A9502; J2785

== ENCOUNTER 2024-05-21 10:30 | Outpatient (RCR) | payer MEDICARE, SELFPAY | END 2024-06-05 11:31 | disposition home or self-care (01) | LOC: ANHDMC 10:30 | PROVIDERS: PCP Family Medicine; Visit Provider Internal Medicine | DX: E10.40 Type 1 diabetes mellitus with diabetic neuropathy, unspecified (principal); Z71.89 Other specified counseling; H54.7 Unspecified visual loss | CPT/HCPCS: G0108 ==

== ENCOUNTER 2024-09-03 14:53 | Outpatient (CLI) | payer MEDICARE, SELFPAY ==
[2024-09-03 15:39] LABS: Alanine Aminotransferase 19 U/L (6-50); Alkaline Phosphatase 157 U/L (38-126); Anion Gap 12 mmol/L (4-12); Aspartate Amino Transferase 42 U/L (17-59); Bilirubin,Total 0.6 mg/dL (0.2-1.3); Blood Urea Nitrogen 6 mg/dL (9-20); Calcium 9.6 mg/dL (8.4-10.2); Carbon Dioxide 25 mmol/L (22-30); Chloride 97 mmol/L (98-107); Estimated Glomerular Filt Rate > 60; Glucose 179 mg/dL (65-110); Magnesium 1.6 mg/dL (1.6-2.3); Potassium 3.3 mmol/L (3.4-5.0); Sodium 134 mmol/L (137-145)
[2024-09-03 16:10] LABS: Prostate Specific Antigen 2.4 ng/mL (< OR = 4.0)
[2024-09-05 02:33] LABS: GGT 129 U/L (3-70)
== END 2024-09-03 14:54 | disposition home or self-care (01) ==
PROVIDERS: PCP Family Medicine; Visit Provider Family Medicine
DX: R74.8 Abnormal levels of other serum enzymes (principal); Z12.5 Encounter for screening for malignant neoplasm of prostate; R00.0 Tachycardia, unspecified; E87.6 Hypokalemia
CPT/HCPCS: 36415; 80048; 80076; 82977; 83735; 84153; 84443; G0103

== ENCOUNTER 2024-10-22 09:05 | Outpatient (CLI) | payer MEDICARE, SELFPAY ==
[2024-10-22 09:40] LABS: Alanine Aminotransferase 24 U/L (6-50); Albumin Level 3.8 g/dL (3.5-5.1); Alkaline Phosphatase 187 U/L (38-126); Anion Gap 8 mmol/L (4-12); Aspartate Amino Transferase 61 U/L (17-59); Bilirubin,Total 0.5 mg/dL (0.2-1.3); Blood Urea Nitrogen 10 mg/dL (9-20); Calcium 9.4 mg/dL (8.4-10.2); Carbon Dioxide 28 mmol/L (22-30); Chloride 103 mmol/L (98-107); Estimated Glomerular Filt Rate > 60; Glucose 150 mg/dL (65-110); Potassium 3.5 mmol/L (3.4-5.0); Sodium 139 mmol/L (137-145)
== END 2024-10-22 09:06 | disposition home or self-care (01) ==
LOC: ANHSURGERY 09:11
PROVIDERS: Internal Medicine; PCP Family Medicine; Visit Provider Surgery
DX: N64.4 Mastodynia (principal); E10.9 Type 1 diabetes mellitus without complications
CPT/HCPCS: 36415; 80053; 86850; 86900; 86901

== ENCOUNTER 2024-10-26 00:43 | Day surgery (SDC) | payer MEDICARE, SELFPAY ==
[2024-10-19 15:18] VITALS: BMI 18.5
--- NOTE | 2024-10-19 15:29 | PC.NURSE ---
Report to the Outpatient Waiting Room, entrance under the green pavilion located off [facility], at time _1000_ on date _[id number]_. Planned Procedure Time: _1200_.? Time changes happen often and if your time is changed the preop area will call you the afternoon before. - You and your visitor will be asked to self-screen and do not enter if you have any COVID symptoms. Please call surgeon if you need to reschedule. - A mask is optional within the hospital at this time. Patients may have clear liquids (water, carbonated beverages, clear teas, apple juice) until 3 hours prior to surgery with a maximum of 20 ounces. - No food from midnight until time of surgery and no smoking. This includes no chewing gum, candy or mints. Take only the following medications with a SIP of water on the morning of surgery: ____Flonase and Hydrocodone if needed. DO NOT STOP ANY OF YOUR OTHER PRESCRIPTION MEDICATIONS PRIOR TO SURGERY EXCEPT THE FOLLOWING Medications to discontinue per physician ___Ok Bedtime Lantus insulin but no short acting insulin bedtime or morning of surgery. Date to take last dose Please no make-up, nail maori, hairspray, perfume, deodorant, or body powder the day of surgery.? No jewelry (including any body piercings) or valuables the day of surgery, leave them at home.? Please take a shower or bath the night before, or the morning of, surgery with an antibacterial soap.? Wear comfortable, loose fitting clothing.? - Jewelry must be removed prior to entering the operating room.? Rings and piercings that are not removed may be cut off. - The hospital will not accept responsibility for valuables.? - Please leave all valuables, including medications, at home the day of surgery. If you are going home after surgery, a licensed test car driver must drive you home.? - NO public transportation without another adult if you receive anesthesia. - We recommend that an adult stay with you for 24 hours following discharge. - We also recommend that you do not drive, make important decision, drink alcoholic beverages, or take any drugs that were not prescribed by your health care provider for at least 24 hours after your discharge time. Follow any additional instructions given to you from your surgeon. Telephone instructions given to __Jaimiety/POA__and asked if any additional questions and then verbalized understanding. Patient advised to call surgeon office or pre surgery nurse liaison [phone] if any additional questions.
[2024-10-26] VITALS (10 sets, daily range): BP systolic 99–139; BP diastolic 55–82; PULSE 55–95; RESP 12–18; TEMP 36.6; O2SAT 98–100
--- NOTE | 2024-10-26 11:00 | WPDANESEPPF ---
Anes - Initial Pre Proc Eval Procedure: Operation Date: 10/26/24 12:00 Proposed Procedures p Bilateral Subcutaneous Mastectomy - Lowell Pate DO Date/Time: 10/26/24 11:00 Surgeon: Lowell Pate DO Pre Op Diagnosis: gynecomastia, breast pain Patient Data Age: 64 Gender: M Height: 1.78 m Weight: 58.6 kg Allergies Allergy/AdvReac Type Severity Reaction Status Date / Time No Known Allergies Allergy Verified 10/22/24 13:17 Home Medications ?Medication ?Instructions ?Recorded ?Confirmed ?Type fluticasone propionate 50 1 spray intranasal BID #16 mL 12/18/21 10/22/24 Rx mcg/actuation nasal spray,suspension (Flonase Allergy Relief) pantoprazole 40 mg tablet,delayed 40 mg PO BID #180 tabs 10/02/22 10/22/24 Rx release blood-glucose sensor (FreeStyle #9 ea 07/04/23 10/22/24 Rx Zenobia 3 Sensor device) magnesium oxide 500 mg PO BID 02/12/24 10/22/24 History pravastatin 10 mg tablet 10 mg PO DAILY #90 tabs 02/24/24 10/22/24 Rx zolpidem 10 mg tablet (Ambien) 10 mg PO QHS PRN insomnia #90 tabs 07/14/24 10/22/24 Rx escitalopram oxalate 10 mg tablet 10 mg PO HS #90 tabs 07/22/24 10/22/24 Rx (Lexapro) glucagon 1 mg/0.2 mL subcutaneous 1 mg (0.2 mL) subcut ONCE #2 mL 07/23/24 10/22/24 Rx auto-injector (Gvoke HypoPen 2-Pack) glucose 4 gram chewable tablet 16 g (4 x 4 gram) PO Q15M PRN 07/23/24 10/22/24 Rx hypoglycemia #360 tabs insulin glargine 100 unit/mL (3 3 unit (0.03 mL) subcut QPM #15 mL 07/23/24 10/22/24 Rx mL) subcutaneous pen (Lantus Solostar U-100 Insulin) insulin lispro 100 unit/mL 3 unit (0.03 mL) subcut TID #15 mL 07/23/24 10/22/24 Rx subcutaneous pen (Humalog KwikPen (U-100) Insulin) amitriptyline 25 mg tablet 12.5 mg (1/2 x 25 mg) PO QHS #45 09/10/24 10/22/24 Rx tabs potassium chloride 20 mEq 20 meq PO . q.a.m. #30 tabs 09/14/24 10/22/24 Rx tablet,extended release hydrocodone 7.5 mg-acetaminophen 1 tablet PO Q4H PRN pain #120 tabs 10/19/24 10/22/24 Rx 325 mg tablet Patient hx anesthesia problems: none Family hx anesthesia problems: none Results Review: All pre-operative results and documents have been reviewed as part of the pre-operative evaluation. [facility] Past Medical History Medical History BMI < 18.5 Subareolar gynecomastia in male (~2023) Occult GI bleeding (~09/14/24) stool positive for occult blood 09/14/2024 Breast mass in male (~02/2024) left retroareolar breast mass 3 cm Chest pain Lexiscan stress test with no evidence of ischemia 03/18/2024. Vitamin D insufficiency (01/17/24) level low at 12.8 with goal greater than 30 on 01/17/2024. Low magnesium level (01/17/24) level low at 3.0 on 01/17/2024. Magnesium 1.4 on 02/10/2024. Magnesium 1.6 on 09/03/2024. Hypokalemia (01/17/24) potassium 3.0 with magnesium 1.2 on 01/17/2024. Potassium 4.1 on 02/10/2024. Potassium 3.3 on 09/03/2024. Encounter for prostate cancer screening PSA normal at 2.31 on 05/25/2022. PSA 2.4 on 09/03/2024. Diabetes mellitus, insulin dependent (IDDM), controlled fasting glucose 117 with hemoglobin A1c 5.6 on 05/25/2022. fasting glucose 127 with hemoglobin A1c 6.3 on 03/02/2023. Elevated liver enzymes (05/25/22) GGT 346, AST 61, ALT 51, alkaline phosphatase 150 on 05/25/2022. GGT 205, AST 42, ALT 37, alkaline phosphatase 147 on 03/02/2023. GGT 108, AST elevated at 67 with ALT 32 and alkaline phosphatase 185 on 01/17/2024. GGT 216 on 02/10/2024. GGT 129, AST 42, ALT 19, alkaline phosphatase 57 on 09/03/2024. Welcome to Medicare preventive visit BMI 20.0-20.9, adult At moderate risk for fall Hypomagnesemia Recurrent syncope Tachycardia (01/29/22) EKG 01/29/2022 with sinus tachycardia with heart rate [address] T wave changes, cannot rule out inferior ME. Echocardiogram 01/31/2022 with ejection fraction 60-65%, unremarkable except for tachycardia heart rate 122. Normal thyroid function with TSH 1.23, free T4 0.9, T3 total 102 on 03/02/2023. Syncope (~01/2022) EEG 02/01/2022 normal. Carotid Doppler study unremarkable 01/30/2022 . Nocturia PSA normal at 2.31 on 05/25/2022. Diabetic neuropathy associated with type 1 diabetes mellitus Chronic thoracic back pain On prescription opioids. Mild intermittent asthma in adult without complication Situational anxiety Insomnia Chronic depression Julissa hereditary optic neuropathy legally blind. No central vision. Chronic pancreatitis Amylase elevated at 221 with lipase less than 5 on 05/25/2022. amylase 66 with lipase less than 5 on 03/02/2023. Amylase 127 with lipase at 11 on 01/17/2024. Essential (primary) hypertension Uncontrolled type 1 diabetes mellitus with hyperglycemia Glucose 117 with hemoglobin A1c 5.6 and urine microalbumin ratio of 3 on 05/25/2022. Surgical History Surgical History History of partial colectomy For what sounds like perforated diverticulitis. History of orthopedic surgery Left 5th finger surgery. Bilateral foot surgery. History of cholecystectomy History of tonsillectomy Family History Family History Father Family history of kidney disease Family history of diabetes mellitus in first degree relative Family history of heart disease in male family member before age 55 Patient's father is , Onset Age: 45 Family history of cardiovascular disease Acute myocardial infarction Diabetes mellitus Mother Cerebrovascular accident 10/2017 Cancer Other Diabetes mellitus cousins Sibling Asthma Breast cancer Diagnosed age 59 Social History Social History Social History: Surrogate decision maker: Kiya Ba, sister. Code status: Full code. He would not however want to be on long-term life support. Smoking packs per day: 1 Smoking cigarettes per day: 20.0 Years smoked: 50 Smoking pack-years: 50.00 Smoking status: Current every day smoker Tobacco type: cigarettes Second hand tobacco smoke exposure: Yes Additional smoking assessment comments: Started at age 12 Alcohol intake: current Drinks per week: 3 Alcohol use details: Consumes alcohol everyday, unknown of amount of drinks Substance use: unknown Substance use type: marijuana Other substance usage details: He grows his own plants at home Last use: daily Do You Feel Safe in your Home?: Yes Lack of Transportation: No Lack of Food: Never True Current Housing: I Have Housing Concerned About Future Housing: No Difficulty Paying Gas/Electric Bills: No Difficulty Paying for Meds: No Currently Unemployed: No Education: High School Diploma/GED Difficulty w/ Childcare or Family Care: No Living arrangements: alone Additional living arrangements comments: The patient lives alone in [place]. 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 Spiritual care concerns: No Anes - Eval Final PreProcedure Day of Procedure 10/26/24 11:00 Patient weight: thin Heart: regular rate and rhythm Lungs: clear to auscultation Airway: Mallampati scale class II Neurological: alert and oriented Last oral intake: >/= 8 hours ASA classification: III Emergent: no Anesthetic plan: proceed Anesthesia type and monitoring: general LMA and standard monitoring Results Review: All pre-operative results and documents have been reviewed as part of the pre-operative evaluation. Informed Consent: The patient's anesthetic plan and its attendant risks and benefits were discussed with the patient/family/POA. Questions were solicited and answers provided to the satisfaction of the patient/family/POA.
[2024-10-26] MEDS: ACETAMINOPHEN 500 MG TABLET 1000 MG PO (11:05)
[2024-10-26] MEDS: LACTATED RINGERS 1,000 ML 30 ML IV CONT (11:10)
[2024-10-26 11:13] LABS: Glucose Point of Care 124 mg/dl (65-105)
[2024-10-26] MEDS: KETOROLAC 15 MG/ML VIAL (*BKC) IV PUSH (11:15)
--- NOTE | 2024-10-26 11:26 | WPDHPUPDATE1 ---
History and Physical Update Update Date/Time: 10/26/24 11:26 History and Physical has been reviewed, including an updated exam of the patient. There are NO changes in the patient's condition. Risks, benefits, and alternatives have been discussed and questions answered. Patient agrees to proceed with procedure.
--- NOTE | 2024-10-26 11:26 | PM.IMHP ---
H&P: HPI History of Present Illness Date/Time: 10/26/24 11:26 Chief Complaint: Bilateral gynecomastia with mastodynia Narrative: 64 yo man presents for bilateral mastectomy. He has been experiencing bilateral breast pain and breast enlargement for the past 9 months. He reports no changes since last seen in office. Review of Systems Review of Systems: All systems reviewed & are unremarkable except as noted in HPI and below Constitutional: Constitutional: Denies chills, Denies fever(s), Denies headache(s) and Denies weight loss Eyes: Eyes: Denies change in vision ENT: Denies dizziness, Denies headache(s), Denies neck mass and Denies throat swelling Cardiovascular: Cardiovascular: Denies chest pain, Denies lightheadedness and Denies dyspnea Respiratory: Respiratory: Denies cough, Denies dyspnea and Denies wheezing Gastrointestinal: Gastrointestinal: Denies abdominal pain, Denies change in bowel habits, Denies nausea and Denies vomiting Genitourinary: Genitourinary: Denies hematuria and Denies dysuria Musculoskeletal: Musculoskeletal: Reports as per HPI Integumentary/Breasts: Skin/Breast: Reports as per HPI Neurologic: Denies dizziness and Denies headache(s) Allergic/Immunologic: Allergic/Immunologic: Denies throat swelling and Denies wheezing PMFSH Past Medical History Medical History BMI < 18.5 Subareolar gynecomastia in male (~2023) Occult GI bleeding (~09/14/24) stool positive for occult blood 09/14/2024 Breast mass in male (~02/2024) left retroareolar breast mass 3 cm Chest pain Lexiscan stress test with no evidence of ischemia 03/18/2024. Vitamin D insufficiency (01/17/24) level low at 12.8 with goal greater than 30 on 01/17/2024. Low magnesium level (01/17/24) level low at 3.0 on 01/17/2024. Magnesium 1.4 on 02/10/2024. Magnesium 1.6 on 09/03/2024. Hypokalemia (01/17/24) potassium 3.0 with magnesium 1.2 on 01/17/2024. Potassium 4.1 on 02/10/2024. Potassium 3.3 on 09/03/2024. Encounter for prostate cancer screening PSA normal at 2.31 on 05/25/2022. PSA 2.4 on 09/03/2024. Diabetes mellitus, insulin dependent (IDDM), controlled fasting glucose 117 with hemoglobin A1c 5.6 on 05/25/2022. fasting glucose 127 with hemoglobin A1c 6.3 on 03/02/2023. Elevated liver enzymes (05/25/22) GGT 346, AST 61, ALT 51, alkaline phosphatase 150 on 05/25/2022. GGT 205, AST 42, ALT 37, alkaline phosphatase 147 on 03/02/2023. GGT 108, AST elevated at 67 with ALT 32 and alkaline phosphatase 185 on 01/17/2024. GGT 216 on 02/10/2024. GGT 129, AST 42, ALT 19, alkaline phosphatase 57 on 09/03/2024. Welcome to Medicare preventive visit BMI 20.0-20.9, adult At moderate risk for fall Hypomagnesemia Recurrent syncope Tachycardia (01/29/22) EKG 01/29/2022 with sinus tachycardia with heart rate [address] T wave changes, cannot rule out inferior NM. Echocardiogram 01/31/2022 with ejection fraction 60-65%, unremarkable except for tachycardia heart rate 122. Normal thyroid function with TSH 1.23, free T4 0.9, T3 total 102 on 03/02/2023. Syncope (~01/2022) EEG 02/01/2022 normal. Carotid Doppler study unremarkable 01/30/2022 . Nocturia PSA normal at 2.31 on 05/25/2022. Diabetic neuropathy associated with type 1 diabetes mellitus Chronic thoracic back pain On prescription opioids. Mild intermittent asthma in adult without complication Situational anxiety Insomnia Chronic depression Julissa hereditary optic neuropathy legally blind. No central vision. Chronic pancreatitis Amylase elevated at 221 with lipase less than 5 on 05/25/2022. amylase 66 with lipase less than 5 on 03/02/2023. Amylase 127 with lipase at 11 on 01/17/2024. Essential (primary) hypertension Uncontrolled type 1 diabetes mellitus with hyperglycemia Glucose 117 with hemoglobin A1c 5.6 and urine microalbumin ratio of 3 on 05/25/2022. Surgical History Surgical History History of partial colectomy For what sounds like perforated diverticulitis. History of orthopedic surgery Left 5th finger surgery. Bilateral foot surgery. History of cholecystectomy History of tonsillectomy Family History Family History Father Family history of kidney disease Family history of diabetes mellitus in first degree relative Family history of heart disease in male family member before age 55 Patient's father is , Onset Age: 45 Family history of cardiovascular disease Acute myocardial infarction Diabetes mellitus Mother Cerebrovascular accident 10/2017 Cancer Other Diabetes mellitus cousins Sibling Asthma Breast cancer Diagnosed age 59 Social History Social History Social History: Surrogate decision maker: Kiya Ba, sister. Code status: Full code. He would not however want to be on long-term life support. Smoking packs per day: 1 Smoking cigarettes per day: 20.0 Years smoked: 50 Smoking pack-years: 50.00 Smoking status: Current every day smoker Tobacco type: cigarettes Second hand tobacco smoke exposure: Yes Additional smoking assessment comments: Started at age 12 Alcohol intake: current Drinks per week: 3 Alcohol use details: Consumes alcohol everyday, unknown of amount of drinks Substance use: unknown Substance use type: marijuana Other substance usage details: He grows his own plants at home Last use: daily Do You Feel Safe in your Home?: Yes Lack of Transportation: No Lack of Food: Never True Current Housing: I Have Housing Concerned About Future Housing: No Difficulty Paying Gas/Electric Bills: No Difficulty Paying for Meds: No Currently Unemployed: No Education: High School Diploma/GED Difficulty w/ Childcare or Family Care: No Living arrangements: alone Additional living arrangements comments: The patient lives alone in [place]. 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 Spiritual care concerns: No Meds Home Medications and Allergies Home Medications ?Medication ?Instructions ?Recorded ?Confirmed ?Type fluticasone propionate 50 1 spray intranasal BID #16 mL 12/18/21 10/22/24 Rx mcg/actuation nasal spray,suspension (Flonase Allergy Relief) pantoprazole 40 mg tablet,delayed 40 mg PO BID #180 tabs 10/02/22 10/22/24 Rx release blood-glucose sensor (FreeStyle #9 ea 07/04/23 10/22/24 Rx Zenobia 3 Sensor device) magnesium oxide 500 mg PO BID 02/12/24 10/22/24 History pravastatin 10 mg tablet 10 mg PO DAILY #90 tabs 02/24/24 10/22/24 Rx zolpidem 10 mg tablet (Ambien) 10 mg PO QHS PRN insomnia #90 tabs 07/14/24 10/22/24 Rx escitalopram oxalate 10 mg tablet 10 mg PO HS #90 tabs 07/22/24 10/22/24 Rx (Lexapro) glucagon 1 mg/0.2 mL subcutaneous 1 mg (0.2 mL) subcut ONCE #2 mL 07/23/24 10/22/24 Rx auto-injector (Gvoke HypoPen 2-Pack) glucose 4 gram chewable tablet 16 g (4 x 4 gram) PO Q15M PRN 07/23/24 10/22/24 Rx hypoglycemia #360 tabs insulin glargine 100 unit/mL (3 3 unit (0.03 mL) subcut QPM #15 mL 07/23/24 10/22/24 Rx mL) subcutaneous pen (Lantus Solostar U-100 Insulin) insulin lispro 100 unit/mL 3 unit (0.03 mL) subcut TID #15 mL 07/23/24 10/22/24 Rx subcutaneous pen (Humalog KwikPen (U-100) Insulin) amitriptyline 25 mg tablet 12.5 mg (1/2 x 25 mg) PO QHS #45 09/10/24 10/22/24 Rx tabs potassium chloride 20 mEq 20 meq PO . q.a.m. #30 tabs 09/14/24 10/22/24 Rx tablet,extended release hydrocodone 7.5 mg-acetaminophen 1 tablet PO Q4H PRN pain #120 tabs 10/19/24 10/22/24 Rx 325 mg tablet Allergies Allergy/AdvReac Type Severity Reaction Status Date / Time No Known Allergies Allergy Verified 10/26/24 11:26 Exam Const: General: no acute distress and alert Orientation/consciousness: patient oriented x3 HENMT: Head: normocephalic and atraumatic Ears: hearing grossly normal bilaterally Face/Nose/Sinus: Normal nares present Mouth: Yes Normal oral and palatal mucosa present Eyes: Periorbital: periorbital findings normal Sclera: sclerae normal EOM: EOMs intact bilaterally Neck: Neck: normal visual inspection, no lymphadenopathy and trachea midline Chest: Chest palpation & inspection: normal inspection of the chest Other: bilateral gynecomastia, left slightly larger than right Resp: Effort & Inspection: normal respiratory effort Auscultation: clear to auscultation bilaterally Cardio: Jugular venous distension: no JVD Rate: regular rate Rhythm: regular rhythm Heart sounds: S1 normal heart sound present and S2 normal heart sound present Peripheral pulses: Peripheral pulses 2+ throughout GI: Inspection: normal to inspection GI Palp: Yes Soft to palpation, No Tenderness to palpation present (GI), No Guarding due to palpation present (GI) and No Rebound tenderness present Percussion: Yes normal to percussion Auscultation: normal bowel sounds : General: Yes no CVA tenderness Back/Spine/Pelvis: Back: no CVA tenderness Neuro: General: patient oriented x3, no focal motor deficits and CN's II-XI intact bilaterally Cognition (Neuro): normal cognition Speech: normal speech Motor exam (neuro): 5/5 motor strength present throughout Extrem: General: capillary refill normal and no clubbing, cyanosis or edema Assessment and Plan Assessment and plan (1) Gynecomastia: Code(s): N62 - Hypertrophy of breast Status: Acute Assessment and Plan: I have recommended bilateral subcutaneous mastectomy. I have discussed the procedure, risks, benefits, and alternatives with the patient. All questions answered. No changes since last seen in office. (2) Breast pain: Code(s): N64.4 - Mastodynia Status: Acute
[2024-10-26] MEDS: ceFAZolin 2 GM/D5W 50 ML 2 GM/50 ML BAG IVPB (11:53)
[2024-10-26] MEDS: BUPIVACAINE/EPINEPHRINE 0.5% 30 ML VIAL INFILTRATE (12:13)
--- NOTE | 2024-10-26 12:23 | SUR.OPER ---
Specimens x 2 sent with [facility] and received in pathology by Alexandre
--- NOTE | 2024-10-26 12:37 | W.PM.PROC2 ---
Procedure Note - Detailed Date of Procedure 10/26/24 Pre-op Diagnosis gynecomastia, breast pain Post-op Diagnosis Same Procedure Performed Bilateral subcutaneous mastectomy Surgeon Lowell Pate DO Anesthesia General and Local (0.5% bupivacaine with epinephrine) Indications This is a 64-year-old man who presented with bilateral breast pain. He had experienced some mild breast enlargement and breast pain over the past 9 months. Ultrasound and mammogram were ordered patient could not complete. He continued to have significant pain and was noted to have mild bilateral gynecomastia. Discussions were made with the patient about treatment options including marijuana cessation, continued medical treatment, or excision and decision was made to proceed with bilateral subcutaneous mastectomy. Findings Bilateral subcutaneous mastectomy was performed. The patient had mild bilateral gynecomastia but no isolated masses. Subcutaneous mastectomy was performed on each side sparing the nipple and areola complex. The breast tissue was sent to the lab for pathology. No other significant abnormalities were noted. Description of Procedure Procedure as well as risks, benefits, and alternatives were discussed with the patient. Written consent was obtained and placed in chart prior to procedure. Patient was brought back to surgical suite. He was placed supine on operating table. Time-out was done to confirm patient and procedure. He was then intubated by the anesthesia department. His bilateral chest area was prepped and draped in sterile fashion using chlorhexidine prep. 0.5% bupivacaine with epinephrine was infiltrated locally around each the breast areas. Initially began on the left side. A 4 cm curvilinear incision was made inferior to the nipple areola complex using a 15 blade scalpel. Electrocautery was then used for hemostasis and for dissection under the nipple. I then carefully excised breast tissue from the surrounding subcutaneous attachments using electrocautery all the way down to the level of the pectoral fascia. Breast tissue was completely excised and sent to the lab for pathology. The wound bed was then inspected. Hemostasis appeared adequate and no other abnormalities were noted. The deep dermis was reapproximated using 3-0 Vicryl inverted interrupted sutures. The skin was approximated using 4-0 Monocryl running subcuticular suture. I then moved my attention over to the right breast. A 4 cm curvilinear incision was made under the right nipple areolar complex using a 15 blade scalpel. Electrocautery was used for hemostasis and for dissection under the nipple. The breast tissue was then carefully dissected free from the surrounding subcutaneous attachments all the way down to the level of the pectoral fascia. Breast tissue was completely excised and sent to the lab for pathology. The wound bed was then inspected. Hemostasis appeared adequate. The deep dermis was then reapproximated using 3-0 Vicryl inverted interrupted sutures. The skin was then approximated using 4-0 Monocryl running subcuticular suture. Exofin glue was then applied on top of both incisions. Patient was then awakened from anesthesia, extubated, and transferred to recovery. Estimated Blood Loss 10 Pathology Yes (Right and left breast tissue) Complications No immediate complications Condition Stable Disposition Same day [facility] Billing Surgery - Charge Forward: Surgery Billing
[2024-10-26 12:46] LABS: Glucose Point of Care 103 mg/dl (65-105)
[2024-10-26] MEDS: fentaNYL CITRATE INJ (*CRX) 100 MCG/2 ML VIAL 25 MCG IV PUSH (13:33)
[2024-10-26] MEDS: oxyCODONE HCL (*CRX) 5 MG TAB IR PO (14:23)
--- NOTE | 2024-10-28 08:58 | SUR.PREOP ---
LATE ENTRY 10/26/24 1055 PT AND PT SISTER DENY ANY HISTORY OF SEIZURES, STATES HAS PASSED OUT BEFORE FROM ORTHOSTATIC HYPOTENSION
--- OUTSIDE RECORDS SUMMARY | 2024-10-31 10:06 | XMS_ITS | Encounter Summary ---
Author Organization [facility] Address [address] [place] [address] Phone Care Team Providers Care System Support Analyst Name Role Phone Artemio Park MD Primary Care Provider [phone] Bob Sanchez MD Unavailable [phone] Quincy Diego MD Unavailable Reason for Visit * Reason Onset Date Comments Scheduling Appointments 03/05/2022 Encounter Details Date Type Department Care Team (Late st Contact Info) Description 03/05/2022 Telephone [facility] Ophthalmology [address] [place], [place] [id number] Swapna Bee MD [address] [id number] Scheduling Appointments Social History Tobacco Use Types Packs/Day Years Used Date Smoking Tobacco: Every Day Cigarettes Alcohol Use Standard Drinks/Week Comments Yes 6 (1 standard drink = 0.6 oz pur e alcohol) Sex and Gender Information Value Date Recorded Sex Assigned at Not on file 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 - 03/19/2022 10:05 AM CDT Called pt after noticing had appt see Dr. Bee May 29 and with testing at [facility] for 1 yr with hvfand octs. Pt informed us had appt info offered sooner pt did not want this at this time * Telephone Encounter - Flora Parrish - 03/05/2022 3:30 PM CDT Pt sister (Kiya) called requesting to make an appt with Dr. Bee. Call back number [phone]. documented in this encounter Plan of Treatment Not on file documented as of this encounter Visit Diagnoses Not on filedocumented in this encounter Care Teams System Support Analyst Relationship Specialty Start Date End Date Artemio Park MD [address] [place] [id number] PCP - General Family Medicine 08/14/19 Bob Sanchez MD [address] [place] [id number] Primary Eye Care Provider Ophthalmology 08/25/19 Quincy Diego MD [address] [place] [phone] Consulting Physician Ophthalmology 08/25/19 documented as of this encounter
--- OUTSIDE RECORDS SUMMARY | 2024-10-31 10:06 | XMS_ITS | Referral Summary ---
Author Organization [facility] Address [address] [place] [address] Care Team Providers Care Cook Chill Technician Name Role Phone Artemio Park MD Primary Care Provider [phone] Bob Sanchez MD Unavailable [phone] Quincy Diego MD Unavailable Allergies No known active allergies Medications lisinopril (PRINIVIL,ZESTR IL) 20 mg tablet Take 20 mg by mouth daily Active insulin lispro (HumaLOG) 100 unit/mL injection Inject 4-5 Units under the skin 3 (three) times a day before meals Active HYDROcodone-radha taminophen (NORCO) 7.5-325 mg per tablet TK 1 T PO Q 6 H PRF PAIN 0 08/20/2019 Active coQ10, ubiquinol, 100 mg capsuleIndicati ons:Julissa's Hereditary Optic Atrophy Take 1 capsule by mouth daily 30 capsule 11 10/06/2019 Active Active Problems Problem Noted Date Diagnosed Date 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 His previous workup by Dr. Sanchez and Dr. Diego has included an MRI of the brain and orbits showing mild white matter disease and old lacunar basal ganglia infarcts, as well as a full field ERG and multifocal ERG, both of which were reportedly normal. His vision declined from 20/300 OD and 20/30 OS on 07/17/19 to 20/400 OD and 20/200 OS on 08/14/19. Neuro-ophthalmologic exam is remarkable for poor visual acuity on bottom-up testing OU (6/200 OD, 20/200 OS) with a trace afferent pupillary defect OD. He was unable to do color plates OD but had significant dyschromatopsia OS. Stereopsis testing did not demonstrate better binocular visual acuity. OCT of the optic nerve and macula showed mild thickening of the retinal nerve fiber layer OD>OS and ganglion cell layer thinning OD. A Goldmann visual field was obtained, which showed only mild superior and nasal constriction without central or paracentral scotoma. Funduscopic exam showed mild relative hyperemia of the left optic nerve (or pallor of the right optic nerve), but was otherwise unremarkable. Given the absence of compressive or infiltrative process on his imaging, the differential for his progressive bilateral vision loss includes nutritional optic neuropathies, infectious etiologies like syphilis, and Julissa's hereditary optic neuropathy. Would consider MOG and NMO as less likely etiologies. Although functional overlay cannot be ruled out, he does have an afferent pupillary defect and ganglion cell thinning on the right, which is the eye with worst acuity and the initially involved eye. Will send lab work to assess for these causes, including LHON mtDNA mutation testing, RPR, FTA-ABS, HIV, copper, methymalonic acid, vitamin B12, vitamin B1, folate, ESR, CRP, NMO, MOG, and CBC. I will call him with the results of these tests and to plan follow-up. He may also benefit from referral for low vision evaluation. 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
--- OUTSIDE RECORDS SUMMARY | 2024-10-31 10:06 | XMS_ITS | Clinical Summary ---
Author Organization [facility] Address [address] [place] [address] Care Team Providers Care Truck Driver Heavy Name Role Phone Artemio Park MD Primary Care Provider [phone] Bob Sanchez MD Unavailable Quincy Diego MD Unavailable Allergies No known [...] Diagnosed Date Julissa hereditary optic neuro ruthie (m.36678 G>A, tested 08/25/2019) 10/06/2019 Legally blind OU [...] 2 diabetes mellitus Presbyopia of both eyes Medical History Medical History Date Comments Type 2 diabetes mellitus, wi th long-term current use of insulin (HCC) 08/25/2019 Essential hypertension 08/25/2019 Pancreatitis 08/25/2019 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 (HCC) Cataracts, both eyes Presbyopia of both eyes Strabismus 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) 10/06/2019 Julissa hereditary optic neuro ruthie (m.80419 G>A, tested 08/25/2019) 10/06/2019 Family History Medical History Relation Name Comments Blindness Mother's Brother Relation Name Status Comments Mother's Brother Social History Tobacco Use Types Packs/Day Years Used Date Smoking Tobacco: Every Day Cigarettes Alcohol Use Standard Drinks/Week Comments Yes 6 (1 standard drink = 0.6 oz pur e alcohol) Personal Safety Answer Date Recorded Getting School Help Needed Not on file 01/04 Sex and Gender Information Value Date Recorded Sex Assigned at Not on file 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
--- OUTSIDE RECORDS SUMMARY | 2024-10-31 10:07 | XMS_ITS | Encounter Summary ---
Author Organization [facility] Healthcare Address [address] [place] [address] Care Team Providers Care Tip Scourer Name Role Phone Artemio Park MD Primary Care Provider [phone] Reason for Referral * Diagnostic Imaging (Routine) - Closed Specialty Diagnoses / Procedures Referred By Contac t Referred To Contact Radiology Diagnoses Unqualified visual loss, both eyes Procedures MRI Orbit W WO Contrast Bob Sanchez MD Phone: tel:[phone] fax: [address] [address] Referral ID Status Reason Start Date Expiration Date Visits Re quested Visits Authorized [id number] Closed 08/14/2019 02/22/2021 1 1 * Diagnostic Imaging (Routine) - Closed Specialty Diagnoses / Procedures Referred By Contac t Referred To Contact Radiology Diagnoses Unqualified visual loss, both eyes Procedures MRI Brain W WO Contrast Bob Sanchez MD Phone: tel: fax: [address] [address] Referral ID Status Reason Start Date Expiration Date Visits Re quested Visits Authorized [id number] Closed 08/14/2019 02/22/2021 1 1 Reason for Visit * Diagnostic Imaging (Routine) - Closed Specialty Diagnoses / Procedures Referred By Contac t Referred To Contact Radiology Diagnoses Unqualified visual loss, both eyes Procedures MRI Orbit W WO Contrast Bob Sanchez MD Phone: tel: fax: [address] [address] Referral ID Status Reason Start Date Expiration Date Visits Re quested Visits Authorized [id number] Closed 08/14/2019 02/22/2021 1 1 Encounter Details Date Type Department Care Team (Late st Contact Info) Description 08/20/2019 2:13 PM CDT - 08/20/2019 11:59 PM CDT Hospital Encounter [facility] [address] [place] [address] Bob Sanchez MD [address] [place] [address] Unqualified visual loss, both eyes Discharge Disposition: Discharge to home or self care Social History Tobacco Use Types Packs/Day Years Used Date Smoking Tobacco: Never Assessed Sex and Gender Information Value Date Recorded Sex Assigned at Not on file 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 Gender Identity Not on file Sexual Orientation Not on file documented as of this encounter Medications at Time of Discharge HYDROcodone-acetam inophen (NORCO) 7.5-325 mg per tablet TK 1 T PO Q 6 H PRF PAIN 0 08/20/2019 documented as of this encounter Discharge Disposition Disposition Code Departure Means Destination Discharge to home or self care documented in this encounter Plan of Treatment Not on file documented as of this encounter Procedures Procedure Name Priority Date/Time Associated Diagnosis Comments MRI ORBIT W WO CONTRAST Schedule Routine, Read Routine (OP Routine) 08/20/2019 3:54 PM CDT Unqualified visual loss, both eyes MRI BRAIN W WO CONTRAST Schedule Routine, Read Routine (OP Routine) 08/20/2019 3:33 PM CDT Unqualified visual loss, both eyes CREATININE, WHOLE BLOOD STAT 08/20/2019 1:52 PM CDT documented in this encounter Results * MRI Orbit W WO Contrast (08/20/2019 3:54 PM CDT) Anatomical Region Laterality Modality Head and Neck N/A Magnetic Resonan ce 08/20/2019 10:2 6 PM CDT Impressions 08/20/2019 10:26 PM CDT 1. ??MILD WHITE MATTER CHANGES. ??MOST COMMONLY DUE TO MICROANGIOPATHY CHANGES IN THE OLDER PATIENT. ??SOME MILD VOLUME LOSS/ATROPHY. 2. ??EVIDENCE OF OLD LACUNAR INFARCTIONS THE BASAL GANGLIA. 3. ??MINIMAL FINDINGS SUGGESTING LEFT MASTOIDITIS. Electronically signed by: Laurie Nino 08/20/2019 10:26 PM CDT MRI BRAIN W WO CONTRAST, MRI ORBIT W WO CONTRAST HISTORY: Unqualified visual loss, both eyes. TECHNIQUE: Sagittal and coronal FLAIR, axial T1, T2, FLAIR, diffusion, axial sagittal coronal T1 postcontrast. ??15 mL dotarem intravenous. ??Thin section axial images of the orbits, with T1, T2 spare, STIR, as well as postcontrast images. COMPARISON: None available. FINDINGS: Mild white matter changes are seen diffusely bilaterally. There appear to BE some mild volume loss/atrophy. ??There appear to be small lacunar infarctions the basal ganglia. ??No midline shift is noted. ??Brainstem cisterns are intact. ??Diffusion-weighted images are unremarkable. ??No enhancing lesion identified. ??For the orbits the optic nerves have a normal caliber and bilaterally symmetric appearance. ??Extraocular muscles have normal caliber and bilaterally symmetric appearance. ??Globes are unremarkable. ??No enhancing lesion identified. ??Minimal mucosal thickening paranasal sinuses primarily ethmoidal sinuses. ??Minimal increased T2 signal left mastoids. Procedure Note Cr Adame MD - 08/20/2019 MRI BRAIN W WO CONTRAST, MRI ORBIT W WO CONTRAST HISTORY: Unqualified visual loss, both eyes. TECHNIQUE: Sagittal and coronal FLAIR, axial T1, T2, FLAIR, diffusion, axial sagittal coronal T1 postcontrast. 15 mL dotarem intravenous. Thin section axial images of the orbits, with T1, T2 spare, STIR, as well as postcontrast images. COMPARISON: None available. FINDINGS: Mild white matter changes are seen diffusely bilaterally. There appear to BE some mild volume loss/atrophy. There appear to be small lacunar infarctions the basal ganglia. No midline shift is noted. Brainstem cisterns are intact. Diffusion-weighted images are unremarkable. No enhancing lesion identified. For the orbits the optic nerves have a normal caliber and bilaterally symmetric appearance. Extraocular muscles have normal caliber and bilaterally symmetric appearance. Globes are unremarkable. No enhancing lesion identified. Minimal mucosal thickening paranasal sinuses primarily ethmoidal sinuses. Minimal increased T2 signal left mastoids. IMPRESSION: 1. MILD WHITE MATTER CHANGES. MOST COMMONLY DUE TO MICROANGIOPATHY CHANGES IN THE OLDER PATIENT. SOME MILD VOLUME LOSS/ATROPHY. 2. EVIDENCE OF OLD LACUNAR INFARCTIONS THE BASAL GANGLIA. 3. MINIMAL FINDINGS SUGGESTING LEFT MASTOIDITIS. Electronically signed by: Cr Adame M.D Bob Sanchez MD IM MRI PROCEDURES Final Result * MRI Brain W WO Contrast (08/20/2019 3:33 PM CDT) Anatomical Region Laterality Modality Head and Neck N/A Magnetic Resonan ce 08/20/2019 3:59 PM CDT Impressions 08/20/2019 10:26 PM CDT 1. ??MILD WHITE MATTER CHANGES. ??MOST COMMONLY DUE TO MICROANGIOPATHY CHANGES IN THE OLDER PATIENT. ??SOME MILD VOLUME LOSS/ATROPHY. 2. ??EVIDENCE OF OLD LACUNAR INFARCTIONS THE BASAL GANGLIA. 3. ??MINIMAL FINDINGS SUGGESTING LEFT MASTOIDITIS. Electronically signed by: Cr Adame M.D Narrative 08/20/2019 10:26 PM CDT MRI BRAIN W WO CONTRAST, MRI ORBIT W WO CONTRAST HISTORY: Unqualified visual loss, both eyes. TECHNIQUE: Sagittal and coronal FLAIR, axial T1, T2, FLAIR, diffusion, axial sagittal coronal T1 postcontrast. ??15 mL dotarem intravenous. ??Thin section axial images of the orbits, with T1, T2 spare, STIR, as well as postcontrast images. COMPARISON: None available. FINDINGS: Mild white matter changes are seen diffusely bilaterally. There appear to BE some mild volume loss/atrophy. ??There appear to be small lacunar infarctions the basal ganglia. ??No midline shift is noted. ??Brainstem cisterns are intact. ??Diffusion-weighted images are unremarkable. ??No enhancing lesion identified. ??For the orbits the optic nerves have a normal caliber and bilaterally symmetric appearance. ??Extraocular muscles have normal caliber and bilaterally symmetric appearance. ??Globes are unremarkable. ??No enhancing lesion identified. ??Minimal mucosal thickening paranasal sinuses primarily ethmoidal sinuses. ??Minimal increased T2 signal left mastoids. Procedure Note Cr Adame MD - 08/20/2019 MRI BRAIN W WO CONTRAST, MRI ORBIT W WO CONTRAST HISTORY: Unqualified visual loss, both eyes. TECHNIQUE: Sagittal and coronal FLAIR, axial T1, T2, FLAIR, diffusion, axial sagittal coronal T1 postcontrast. 15 mL dotarem intravenous. Thin section axial images of the orbits, with T1, T2 spare, STIR, as well as postcontrast images. COMPARISON: None available. FINDINGS: Mild white matter changes are seen diffusely bilaterally. There appear to BE some mild volume loss/atrophy. There appear to be small lacunar infarctions the basal ganglia. No midline shift is noted. Brainstem cisterns are intact. Diffusion-weighted images are unremarkable. No enhancing lesion identified. For the orbits the optic nerves have a normal caliber and bilaterally symmetric appearance. Extraocular muscles have normal caliber and bilaterally symmetric appearance. Globes are unremarkable. No enhancing lesion identified. Minimal mucosal thickening paranasal sinuses primarily ethmoidal sinuses. Minimal increased T2 signal left mastoids. IMPRESSION: 1. MILD WHITE MATTER CHANGES. MOST COMMONLY DUE TO MICROANGIOPATHY CHANGES IN THE OLDER PATIENT. SOME MILD VOLUME LOSS/ATROPHY. 2. EVIDENCE OF OLD LACUNAR INFARCTIONS THE BASAL GANGLIA. 3. MINIMAL FINDINGS SUGGESTING LEFT MASTOIDITIS. Electronically signed by: Cr Adame M.D Bob Sanchez MD IMG MRI PROCEDURES Final Result * Creatinine, whole blood (08/20/2019 1:52 PM CDT) Creatinine, bld 0.89 0.60 - 1.30 mg/dL AMANDA TORRE (FABY) Blood specimen (specimen) 08/20/2019 1:52 PM CDT 08/20/2019 1:52 PM CDT Bob Sanchez MD LAB BLOOD ORDERABLES Fin al Result AMANDA TORRE (STRAWN) [address] [place] [address] documented in this encounter Visit Diagnoses Diagnosis Unqualified visual loss, both eyes documented in this encounter Administered Medications Inactive Administered Medications - up to 3 most recent administrations Medication Order MAR Action Action Date Dose Rate Site gadoterate meglumine (DOTAREM) 0.5 mmol/mL injection 15 mL 15 mL, intravenous, Once in imaging, contrast, Starting on Misa 08/20/19 at 1547, For 1 dose Given 08/20/2019 3:48 PM CDT 15 mL documented in this encounter Orders Medications Ordered That Jesus ht Not Have Been Administered Count Last Ordered Date First Ordered Date gadoterate meglumine (DOTARE M) 0.5 mmol/mL injection 15 mL 1 08/20/2019 documented in this encounter Care Teams Tip Scourer Relationship Specialty Start Date End Date Artemio Park MD [address] [address] PCP - General Family Medicine 08/14/19 documented as of this encounter
--- OUTSIDE RECORDS SUMMARY | 2024-10-31 10:07 | XMS_ITS | Encounter Summary ---
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 Legally blind Tobacco abuse disorder Procedures OCT, Retina - OU - Both Eyes Swapna Bee MD [address] [address] Phone: tel: fax: [facility] (All Locations) Referral ID Status Reason Start Date Expiration Date Visits Re quested Visits Authorized [id number] Closed 12/10/2019 12/11/2019 1 1 PULLER AND COILER * (Routine) - Closed Specialty Diagnoses / Procedures Referred By Viv farley Referred To Contact Diagnoses 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 Legally blind Tobacco abuse disorder Procedures OCT, Optic Nerve - OU - Both Eyes Swapna Bee MD [address] [address] Phone: tel: fax: [facility] (All Locations) Referral ID Status Reason Start Date Expiration Date Visits Re quested Visits Authorized [id number] Closed 12/10/2019 12/11/2019 1 1 PULLER AND COILER * (Routine) - Closed Specialty Diagnoses / Procedures Referred By Viv t Referred To Contact Diagnoses 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 Legally blind Tobacco abuse disorder Procedures Antunez Visual Field - OU - Both Eyes Swapna Bee MD [address] [address] Phone: tel: fax: [facility] (All Locations) Referral ID Status Reason Start Date Expiration Date Visits Re quested Visits Authorized [id number] Closed 12/10/2019 12/11/2019 1 1 PULLER AND COILER Encounter Details Date Type Department Care Team (Late st Contact Info) Description 12/10/2019 Orders Only [facility] Ophthalmology [address] [place] [address] [address] [place] [address] Swapna Bee MD [facility] [address] Julissa hereditary optic neuropathy (Primary Dx); Optic neuropathy of both eyes; Legally blind; Tobacco abuse disorder Social History Tobacco Use Types Packs/Day Years Used Date Smoking Tobacco: Every Day Cigarettes Alcohol Use Standard Drinks/Week Comments Yes 6 (1 standard drink = 0.6 oz pur e alcohol) Sex and Gender Information Value Date Recorded Sex Assigned at Not on file 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 Temporal thickness was normal. Superior thickness was showing abnormal thickness. Nasal thickness was normal. Inferior thickness was normal. Average RNFL thickness 104 micrometers. Left Eye Reliability was good. Temporal thickness was normal. Superior thickness was showing abnormal thickness. Nasal thickness was normal. Inferior thickness was normal. Average RNFL thickness 102 micrometers. Notes Difficulty with fixation us Swapna Bee MD OPHTH TOMOGRAPHY Final Resu lt * Antunez Visual Field - OU - Both Eyes (12/14/2019 2:42 PM ROD PULLER AND COILER) Anatomical Region Laterality Modality Head Visual Field Narrative 12/14/2019 3:03 PM ROD PULLER AND COILER SIZE 5 STIMULUS OU (mean deviation, foveal threshold, fixation monitor turned off) OD: Diffuse depression, worst centrally, 1/13 FP, 5/13 FN OS: Diffuse depression, worst centrally, 0/10 FP, 0/1 FN us Swapna Bee MD OPHTH VISUAL FIELD Final Re sult * OCT, Retina - OU - Both Eyes (12/14/2019 2:42 PM ROD PULLER AND COILER) [facility] Central Macular Thickness OS 227 mircometers Central Macular Thickness OD 223 micrometers Anatomical Region Laterality Modality Head Optical Coherenc e Tomography Narrative 12/14/2019 3:05 PM ROD PULLER AND COILER Right Eye Macular thickness was 223 micrometers. Left Eye Macular thickness was 227 mircometers. Notes Difficulty with fixation Diffuse ganglion cell complex thinning OU, with mean GCC thickness 56 microns OD, 64 microns OS us Swapna Bee MD OPHTH TOMOGRAPHY Final Resu lt documented in this encounter Visit Diagnoses Diagnosis Julissa hereditary optic neuropathy- Primary Hereditary optic atrophy Optic neuropathy of both eyes Other optic neuritis Legally blind Tobacco abuse disorder Julissa hereditary optic neuropathy- Primary Hereditary optic atrophy Optic neuropathy of both eyes Other optic neuritis Legally blind Tobacco abuse disorder documented in this encounter Care Teams Inside Meter Tester Relationship Specialty Start Date End Date Artemio Park MD [address] [address] PCP - General Family Medicine 08/14/19 Bob Sanchez MD [address] [address] Primary Eye Care Provider Ophthalmology 08/25/19 Quincy Diego MD [address] [address] Consulting Physician Ophthalmology 08/25/19 documented as of this encounter
--- OUTSIDE RECORDS SUMMARY | 2024-10-31 10:07 | XMS_ITS | Encounter Summary ---
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
--- OUTSIDE RECORDS SUMMARY | 2024-10-31 10:07 | XMS_ITS | Encounter Summary ---
Author Organization [facility] Facility Care Team Providers Care Diving Judge Name Role Phone Artemio Park MD Primary Care Provider [phone] Bob Sanchez MD Unavailable [phone] Quincy Diego MD Unavailable Encounter Details Date Type Department Care Team (Latest Contact Info) Description 12/14/2019 Travel Social History Tobacco Use Types Packs/Day Years Used Date Smoking Tobacco: Every Day Cigarettes Alcohol Use Standard Drinks/Week Comments Yes 6 (1 standard drink = 0.6 oz pur e alcohol) Sex and Gender Information Value Date Recorded Sex Assigned at Not on file 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
--- OUTSIDE RECORDS SUMMARY | 2024-10-31 10:07 | XMS_ITS | Encounter Summary ---
Author Organization [facility] Address [address] [place] [address] Phone Care Team Providers Care Game Artist Name Role Phone Artemio Park MD Primary Care Provider [phone] Bob Sanchez MD Unavailable [phone] Quincy Diego MD Unavailable Reason for Visit * (Routine) - Closed Specialty Diagnoses / Procedures Referred By Contac t Referred To Contact Diagnoses Vision loss, bilateral Encounter for observation for other suspected diseases and conditions ruled out Optic neuropathy of both eyes Procedures Antunez Visual Field - OU - Both Eyes Swapna Bee MD Phone: tel: fax: [facility] (All Locations) Referral ID Status Reason Start Date Expiration Date Visits Re quested Visits Authorized [id number] Closed 10/06/2019 04/16/2021 1 1 Encounter Details Date Type Department Care Team (Late st Contact Info) Description 10/06/2019 1:20 PM FOOD GENERAL MANAGER Imaging Exam [facility] Ophthalmology [facility] 6th [place] [phone] Social History Tobacco Use Types Packs/Day Years Used Date Smoking Tobacco: Every Day Cigarettes Alcohol Use Standard Drinks/Week Comments Yes 6 (1 standard drink = 0.6 oz pur e alcohol) Sex and Gender Information Value Date Recorded Sex Assigned at Not on file Legal Sex Male 3:22 AM FOOD GENERAL MANAGER Gender Identity Not on file Sexual Orientation Not on file documented as of this encounter Patient Instructions * Patient Instructions* Jud Galeano - 10/06/2019 1:20 PM FOOD GENERAL MANAGER GENERAL MANAGER documented in this encounter Plan of Treatment Not on file documented as of this encounter Procedures Procedure Name Priority Date/Time Associated Diagnosis Comments ANTUNEZ VISUAL FIELD - OU - BOTH EYES Routine 10/06/2019 2:32 PM FOOD GENERAL MANAGER Vision loss, bilateral Encounter for observation for other suspected diseases and conditions ruled out Optic neuropathy of both eyes documented in this encounter Results * Antunez Visual Field - OU - Both Eyes (10/06/2019 2:32 PM FOOD GENERAL MANAGER) Anatomical Region Laterality Modality Head Visual Field Narrative 10/06/2019 4:15 PM FOOD GENERAL MANAGER Right Eye Fixation was (Fixation monitor turned off). Progression has no prior data. Foveal threshold was (Foveal threshold turned off). Left Eye Fixation was (Fixation monitor turned off). Progression has no prior data. Foveal threshold was (Foveal threshold turned off). Notes SIZE 5 STIMULUS OU: OD: Central scotoma, 0/13 FP, 3/12 FN OS: Central scotoma, 0/16 FN, 7/14 FN Swapna Bee MD OPH VISUAL FIELD Final Re sult documented in this encounter Visit Diagnoses Not on filedocumented in this encounter Care Teams Game Artist Relationship Specialty Start Date End Date Artemio Park MD [address] [id number] PCP - General Family Medicine 08/14/19 Bob Sanchez MD [address] [employer] [address] Primary Eye Care Provider Ophthalmology 08/25/19 Quincy Diego MD [address] [address] Consulting Physician Ophthalmology 08/25/19 documented as of this encounter
--- OUTSIDE RECORDS SUMMARY | 2024-10-31 10:07 | XMS_ITS | Encounter Summary ---
Author Organization [facility] Address [address] [place] [address] Phone Care Team Providers Care Casino Duty Manager Name Role Phone Artemio Park MD Primary Care Provider [phone] Bob Sanchez MD Unavailable [phone] Quincy Diego MD Unavailable Encounter Details Date Type Department Care Team (Late st Contact Info) Description 09/03/2019 Telephone [facility] Ophthalmology [facility] Health 6th [place] [address] Swapna Bee MD [facility] [address] [place] [address] Social History Tobacco Use Types Packs/Day Years Used Date Smoking Tobacco: Every Day Cigarettes Alcohol Use Standard Drinks/Week Comments Yes 6 (1 standard drink = 0.6 oz pur e alcohol) Sex and Gender Information Value Date Recorded Sex Assigned at Not on file 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 LHON genetic testing is pending. 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 Discussed possibility of starting idebenone while waiting for LHON results. He states that he does not want to start idebenone without a diagnosis. He states that he needs me to fill out FMLA paperwork due to the fact that he cannot drive right now. I stated that my boat carpenter mechanic will call him to schedule a 4-6 week follow up and to make sure he has correct fax number for FMLA. documented in this encounter Plan of Treatment Not on file documented as of this encounter Visit Diagnoses Not on filedocumented in this encounter Care Teams Casino Duty Manager Relationship Specialty Start Date End Date Artemio Park MD [address] [place] [address] PCP - General Family Medicine 08/14/19 Bob Sanchez MD [address] [place] [address] Primary Eye Care Provider Ophthalmology 08/25/19 Quincy Diego MD [address] [place] [address] Consulting Physician Ophthalmology 08/25/19 documented as of this encounter
--- OUTSIDE RECORDS SUMMARY | 2024-10-31 10:07 | XMS_ITS | Encounter Summary ---
Author Organization [facility] Address [address] [place] [address] Phone Care Team Providers Care Visual Stylist Name Role Phone Artemio Park MD Primary Care Provider [phone] Bob Sanchez MD Unavailable [phone] Quincy Diego MD Unavailable Reason for Visit * Reason Onset Date Comments Dr. Bee- Short term disability 09/02/2019 Encounter Details Date Type Department Care Team (Late st Contact Info) Description 09/02/2019 Telephone [facility] Ophthalmology [address] [place], [place] [id number] Swapna Bee MD [address] [id number] Dr[address] Bee- Short term disability Social History Tobacco Use Types Packs/Day Years Used Date Smoking Tobacco: Every Day Cigarettes Alcohol Use Standard Drinks/Week Comments Yes 6 (1 standard drink = 0.6 oz pur e alcohol) Sex and Gender Information Value Date Recorded Sex Assigned at Not on file Legal Sex Male 3:22 AM DEDENTER Gender Identity Not on file Sexual Orientation Not on file documented as of this encounter Miscellaneous Notes * Telephone Encounter - Merlene Son - 09/04/2019 3:38 PM CDT [facility] paperwork was faxed today. * Telephone Encounter - Nunu Ornelas COA - 09/04/2019 11:14 AM CDT Pt called back, made appt for 10/06 with [facility], OCT to follow.Pt has questions about his [place] paperwork.CB# [phone] * Telephone Encounter - Merlene Son - 09/03/2019 3:26 PM CDT Called patient to schedule him for a 4 week follow up appointment with Dr. Bee. We was disconnected. Called back and it went straight to voice mail. LM for him to call back and schedule 4w with [facility] SIZE 5 AND OCT to follow. * Telephone Encounter - Merlene Son - 09/02/2019 3:26 PM CDT Waiting on paperwork to be faxed. * Telephone Encounter - Annie Price B.A. - 09/02/2019 12:05 PM CDT Patient called in regards to his blood work results. Told patient that per Dr. Bee she will call him with the results of these tests and to plan follow-up, patient understands. Patient stated told him he should not be driving, so his boss told him that he would rather have the patient be put on short term disability because he works Saturday, Saturday and Saturday. His Boss will go ahead and fax over the paperwork that needs to be filled out by us. Call back #: [phone] (H) documented in this encounter Plan of Treatment Not on file documented as of this encounter Visit Diagnoses Not on filedocumented in this encounter Care Teams Visual Stylist Relationship Specialty Start Date End Date Artemio Park MD [address] [address] PCP - General Family Medicine 08/14/19 Bob Sanchez MD [address] [place] [address] Primary Eye Care Provider Ophthalmology 08/25/19 Quincy Diego MD [address] [place] [address] Consulting Physician Ophthalmology 08/25/19 documented as of this encounter
--- OUTSIDE RECORDS SUMMARY | 2024-10-31 10:07 | XMS_ITS | Encounter Summary ---
Author Organization [facility] Address [address] [place] [address] Phone Care Team Providers Care Internet Application Developer Name Role Phone Artemio Park MD Primary Care Provider [phone] Bob Sanchez MD Unavailable [phone] Quincy Diego MD Unavailable Reason for Visit * Reason Onset Date Comments Partial paperwork received 06/21/2020 Encounter Details Date Type Department Care Team (Late st Contact Info) Description 06/21/2020 Telephone [facility] Ophthalmology [address] [place], [place] [id number] Swapna Bee MD [address] [phone] Partial paperwork received Social History Tobacco Use Types Packs/Day Years Used Date Smoking Tobacco: Every Day Cigarettes Alcohol Use Standard Drinks/Week Comments Yes 6 (1 standard drink = 0.6 oz pur e alcohol) Sex and Gender Information Value Date Recorded Sex Assigned at Not on file Legal Sex Male 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 Received a confirmation that it was successful on our end. * Telephone Encounter - Austin Rodriguez - 06/21/2020 2:18 PM CDT Received call from Sophy at [employer] reporting that she received a partial fax of records from Dr. Bee sent yesterday. She indicates this fax was to be 90 pages but that only 11 were received. Please advise, . documented in this encounter Plan of Treatment Not on file documented as of this encounter Visit Diagnoses Not on filedocumented in this encounter Care Teams Internet Application Developer Relationship Specialty Start Date End Date Artemio Park MD [address] [facility] [address] [place] [address] PCP - General Family Medicine 08/14/19 Bob Sanchez MD [address] [facility] [address] [place] [phone] Primary Eye Care Provider Ophthalmology 08/25/19 Quincy Diego MD [address] [facility] [address] [place] [address] Consulting Physician Ophthalmology 08/25/19 documented as of this encounter
--- OUTSIDE RECORDS SUMMARY | 2024-10-31 10:07 | XMS_ITS | Encounter Summary ---
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 Procedures OCT, Retina - OU - Both Eyes Swapna Bee MD [address] [address] Phone: tel: fax: [facility] (All Locations) Referral ID Status Reason Start Date Expiration Date Visits Re quested Visits Authorized [id number] Closed 09/13/2020 10/13/2021 1 1 SHREDDER * (Routine) - Closed Specialty Diagnoses / Procedures Referred By Viv farley Referred To Contact Diagnoses 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 Procedures OCT, Optic Nerve - OU - Both Eyes Swapna Bee MD [address] [address] Phone: tel: fax: [facility] (All Locations) Referral ID Status Reason Start Date Expiration Date Visits Re quested Visits Authorized [id number] Closed 09/13/2020 10/13/2021 1 1 SHREDDER * (Routine) - Closed Specialty Diagnoses / Procedures Referred By Contac t Referred To Contact Diagnoses 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 Procedures Antunez Visual Field - OU - Both Eyes Swapna Bee MD [address] [address] Phone: tel: fax: [facility] (All Locations) Referral ID Status Reason Start Date Expiration Date Visits Re quested Visits Authorized [id number] Closed 09/13/2020 10/13/2021 1 1 SHREDDER Encounter Details Date Type Department Care Team (Late st Contact Info) Description 09/13/2020 8:45 AM RAG SHREDDER Office Visit [facility] Ophthalmology [address] [place] [id number] Swapna Bee MD [address] [place] [address] Julissa hereditary optic neuropathy (Primary Dx); Optic neuropathy of both eyes; 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 SHREDDER documented in this encounter Progress Notes * Swapna Bee MD - 09/13/2020 8:45 AM CST NEURO-OPHTHALMOLOGY CLINIC FOLLOW-UP Gamaliel Moscoso is a 60 y.o. 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 Assessment: Examination showed stable visual acuity, and slight improvement of visual romero OU, with stable OCT RNFL and GCC measurements OU on idebenone. Plan: - Low Vision Referral. - Urged not to smoke. - Neuro-ophthalmology follow up in 6 months. Patient Counseling/ Additional Information: He was again counseled not to smoke. We again discussed tobacco and as specific metabolic stressorsthat may worsen the optic nerve damage. ?? We discussed that his objective afferent visual function examination has stabilized, with slight improvement of his visual romero OU. We discussed that in some cases, there is??a very small degree of??spontaneous improvement, but not back to the prior visual baseline, and patients typically remain s ignificantly visually impaired and legally blind. ?? I again confirmed that he has the information for??services for blind and low vision patients to learn to skills and how to??make??the best use of the vision that he has. Interval History: Last seen in the neuro-ophthalmology clinic on 06/07/2020. He reports that he feels his vision has declined since his last visit ( when I look at something, it turns black, and I can't see it ). He is currently taking Idebenone. He continues to be a daily tobacco smoker. He has not yet had a Low Vision evaluation. Summary of Clinical Course: Allow me to summarize his clinical course for my records: LHON Diagnosis: - Family history of blindness in a maternal uncle who in his 50s. - Symptoms of painless progressive vision change OD onset June 2019, OS onset July 2019. - Julissa hereditary optic neuropathy genetic test??was positive for MT-ND4/LHON mutation [id number]; [id number] mutation (08/25/2019). 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 - Cardiac assessment: EKG was performed and was normal, per patient. - Treatment: Idebenone started mid-November 2019. ?? Disease Monitoring: - 08/25/2019: Initial neuro-ophthalmology consultation. Examination showed VAcc 6/200 phni OD, 20/200 phni OS; 0/11 color plates OD, 1.5/11 color plates OS; a trace RAPD OD; and normal appearance of the optic discs other than mild hyperemia OD. OCT showed RNFL elevation OU (105 microns OD, 118 microns OS), and mild parafoveal ganglion cell complex thinning OD. - 10/06/2019: Neuro-ophthalmology follow-up. Examination showed VA 5/200 OD, 6/200 OS; central scotomas OU (size 5 stimulus); RNFL 104 microns OD, 102 microns OS; GCC 56 microns OD, 64 microns OS. - Idebenone started mid-November 2019. - 12/14/2019: Neuro-ophthalmology follow-up. Examination showed VAcc 1/200 OD, 3/200 OS; HVF showed severe, diffuse depression, worst centrally OU; and temporal pallor of the optic discs OU. OCT RNFL 104 microns OD, 102 microns OS; GCC 56 microns OD, 64 microns OS - 06/07/2020: Neuro-ophthalmology follow-up. Examination showed VAcc 1/200 OD, 3/200 OS; HVF showed severe, diffuse depression, worst centrally OU; and temporal pallor of the optic discs OU. OCT RNFL 89 microns OD, 89 microns OS; GCC 50 microns OD, 49 microns OS. Current Medical Problems: Patient Active Problem List Diagnosis ??? Essential hypertension ??? Type 2 diabetes mellitus, with long-term current use of insulin (CMS/HCC) ??? Cataracts, both eyes ??? 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 Presbyopia of both eyes ??? Optic neuropathy of both eyes ? ? Julissa hereditary optic neuropathy (m.[id number] G>A, tested 08/25/2019) ??? 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 Tobacco abuse disorder Past Medical History: Past Medical History: Diagnosis Date ??? Cataracts, both eyes ??? Essential hypertension 08/25/2019 ? ? Julissa hereditary optic neuropathy (m.[id number] G>A, tested 08/25/2019) 10/06/2019 ??? 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 Pancreatitis 08/25/2019 ??? Presbyopia of both eyes ??? Strabismus ??? Type 2 diabetes mellitus, with long-term current use of insulin ([facility]) 08/25/2019 Past Surgical History: History reviewed. No pertinent surgical history. Medications: Current Outpatient Medications on File Prior to Visit Medication Sig Dispense Refill ??? coQ10, ubiquinol, 100 mg capsule Take 1 capsule by mouth daily 30 capsule 11 ??? HYDROcodone-acetaminophen (NORCO) 7.5-325 mg per tablet TK 1 T PO Q 6 H PRF PAIN 0 ??? insulin lispro (HumaLOG) 100 unit/mL injection Inject 4-5 Units under the skin 3 (three) times a day before meals ??? lisinopril (PRINIVIL,ZESTRIL) 20 mg tablet Take 20 mg by mouth daily No current facility-administered medications on file prior to visit. Allergies: No Known Allergies Family History: Family History Problem Relation Age of Onset ??? Blindness Mother's Brother Social History: Social History Tobacco Use Smoking Status Current Every Day Smoker ??? Packs/day: 0.00 ??? Years: 1.00 ??? Pack years: 0.00 ??? Types: Cigarettes Social History Substance and Sexual Activity Alcohol Use Yes ??? Alcohol/week: 6.0 standard drinks ??? Types: 6 Cans of beer per week Social History Substance and Sexual Activity Drug Use Not on file Review of Systems: ROS Positive for: HENT, Endocrine ( dmii), Cardiovascular ( HTN), Eyes ( LHON) Negative for: Constitutional, Gastrointestinal, Neurological, Skin, Genitourinary, Musculoskeletal,Respiratory, Psychiatric, Allergic/Imm, Heme/Lymph Last edited by Lilly Goodwin on 09/13/2020 9:01 AM. (History) Physical Exam: Base Eye Exam Visual Acuity (Snellen - Linear) Right Left Dist sc 1.5/200 3/200 Tonometry (Tonopen, 9:10 AM) Right Left Pressure 14 13 Pupils Dark Light Shape React APD Right 5.5 5 Round Minimal None Left 5.5 5 Round Minimal None Visual Romero (Counting fingers) Left Right Restrictions Partial inner superior temporal, inferior temporal, superior nasal, inferior nasal deficiencies Partial inner superior temporal, inferior temporal, superior nasal, inferior nasal deficiencies Extraocular Movement Right Left Full Full Neuro/Psych Oriented x3: Yes Mood/Affect: Normal Dilation Both eyes: 1.0% Mydriacyl, 2.5% Phenylephrine @ 9:10 AM Additional Tests Color Right Left Ishihara unable unable Testing: Antunez Visual Field - OU - Both Eyes SIZE 5 STIMULUS Generalized depression, inferior > superior, OU Improved compared to prior HVF on 06/07/2020 OCT, Optic Nerve - OU - Both Eyes Component Value Flag Ref Range Units Status RNFL OS 77 micrometers Final RNFL OD 81 micrometers Final Right Eye Reliability was good. Average RNFL thickness 81 micrometers. Left Eye Reliability was good. Average RNFL thickness 77 micrometers. Notes Normal mean RNFL thickness OU (Performed on Zeiss Cirrus OCT) OCT, Retina - OU - Both Eyes Component Value Flag Ref Range Units Status Central Macular Thickness OS 222 mircometers Final Central Macular Thickness OD 215 micrometers Final Right Eye Quality was good. Progression has no prior data. Macular thickness was 215 micrometers. Left Eye Quality was good. Progression has no prior data. Macular thickness was 222 mircometers. Notes Diffuse ganglion cell complex thinning OU, with mean GCC thickness: 52 microns OD, 50 microns OS. 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) Swapna Bee MD Absorption Plant Operator Department of Ophthalmology and Visual Sciences Department of Neurology [facility] SHREDDER documented in this encounter Plan of Treatment Not on file documented as of this encounter Procedures Procedure Name Priority Date/Time Associated Diagnosis Comments OCT, RETINA - OU - BOTH EYES Routine 09/13/2020 9:28 AM RAG SHREDDER 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 OCT, OPTIC NERVE - OU - BOTH EYES Routine 09/13/2020 9:26 AM RAG SHREDDER 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 Progression has no prior data. Macular thickness was 215 micrometers. Left Eye Quality was good. Progression has no prior data. Macular thickness was 222 mircometers. Notes Diffuse ganglion cell complex thinning OU, with mean GCC thickness: 52 microns OD, 50 microns OS. Stable compared to prior OCT GCC 50 microns OD, 49 microns OS (on Zeiss Cirrus OCT) us Swapna Bee MD OPHTH TOMOGRAPHY Edited Res ult - Final * OCT, Optic Nerve - OU - Both Eyes (09/13/2020 9:26 AM RAG SHREDDER) RNFL OS 77 micrometers RNFL OD 81 micrometers Anatomical Region Laterality Modality Head Optical Coherenc e Tomography Narrative 09/13/2020 9:26 AM RAG SHREDDER Right Eye Reliability was good. Average RNFL thickness 81 micrometers. Left Eye Reliability was good. Average RNFL thickness 77 micrometers. 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 Other optic neuritis 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) documented in this encounter Eye Exam Visual Acuity (Snellen - Linear) Right eye Left eye Dist sc 1.5/200 3/200 Tonometry (Tonopen, 9:10 AM) Right eye Left eye Pressure 14 13 Pupils Dark Light Shape React APD Right eye 5.5 5 Round Minimal None Left eye 5.5 5 Round Minimal None Visual Romero (Counting fingers) Right eye Left eye Restrictions Partial inner superi or temporal, inferior temporal, superior nasal, inferior nasal deficiencies Partial inner superior temporal, inferior temporal, superior nasal, inferior nasal deficiencies Extraocular Movement Right eye Left eye Full Full Neuro/Psych Oriented x3: Yes Mood/Affect: Normal Dilation Both eyes: 1.0% Mydriacyl, 2 .5% Phenylephrine @ 9:10 AM Color Right eye Left eye Ishihara unable unable Care Teams Industrial Engineering Technologist Relationship Specialty Start Date End Date Artemio Park MD [address] [address] PCP - General Family Medicine 08/14/19 Bob Sanchez MD [address] [address] Primary Eye Care Provider Ophthalmology 08/25/19 Quincy Diego MD [address] [address] Consulting Physician Ophthalmology 08/25/19 documented as of this encounter
--- OUTSIDE RECORDS SUMMARY | 2024-10-31 10:07 | XMS_ITS | Encounter Summary ---
Author Organization [facility] Address [address] [place] [address] Phone Care Team Providers Care Apartment Maintenance Supervisor Name Role Phone Artemio Park MD Primary Care Provider [phone] Bob Sanchez MD Unavailable [phone] Quincy Diego MD Unavailable Reason for Referral * (Routine) - Closed Specialty Diagnoses / Procedures Referred By Contac t Referred To Contact Diagnoses Eric hereditary optic neuropathy Procedures OCT, Optic Nerve - OU - Both Eyes Jazlyn Haas MD Phone: tel: fax: [facility] (All Locations) Referral ID Status Reason Start Date Expiration Date Visits Re quested Visits Authorized [id number] Closed 06/07/2020 07/07/2021 1 1 * (Routine) - Closed Specialty Diagnoses / Procedures Referred By Contac t Referred To Contact Diagnoses Eric hereditary optic neuropathy Procedures OCT, Retina - OU - Both Eyes Jazlyn Haas MD Phone: tel: fax: [facility] (All Locations) Referral ID Status Reason Start Date Expiration Date Visits Re quested Visits Authorized [id number] Closed 06/07/2020 07/07/2021 1 1 * (Routine) - Closed Specialty Diagnoses / Procedures Referred By Contac t Referred To Contact Diagnoses Eric hereditary optic neuropathy Procedures Antunez Visual Field - OU - Both Eyes Jazlyn Haas MD Phone: tel: fax: [facility] (All Locations) Referral ID Status Reason Start Date Expiration Date Visits Re quested Visits Authorized [id number] Closed 06/07/2020 07/07/2021 1 1 Encounter Details Date Type Department Care Team (Late st Contact Info) Description 06/07/2020 9:15 AM CDT Office Visit [facility] Ophthalmology [address] [place] [address] [place] [address] Swapna Bee MD [address] [id number] Eric hereditary optic neuropathy (Primary Dx); Optic neuropathy of both eyes; 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); Tobacco abuse disorder Social History Tobacco Use Types Packs/Day Years Used Date Smoking Tobacco: Every Day Cigarettes Alcohol Use Standard Drinks/Week Comments Yes 6 (1 standard drink = 0.6 oz pur e alcohol) Sex and Gender Information Value Date Recorded Sex Assigned at Not on file 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 documented in this encounter Progress Notes * Swapna Bee MD - 06/07/2020 9:15 AM CDT Images from the original note were not included. NEURO-OPHTHALMOLOGY CLINIC FOLLOW-UP Gamaliel Moscoso is a 59 y.o. 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 Assessment: He reports slight worsening of vision. Objective afferent visual function is overall stable, but his vision is poor enough we may not be able to detect mild progression. He has further progression ofRNFL and GCC thinning OU compared to his prior visit on 12/14/2019. He has completed a 6-month course of idebenone. Plan: - Low Vision Referral. - Urged not to smoke. - Neuro-ophthalmology follow up in 3-4 months. Patient Counseling/ Additional Information: He was again counseled not to smoke. We discussed tobacco and as specific metabolic stressors that may worsen the optic nerve damage. We discussed that his objective afferent visual function examination has stabilized. We discussed that in some cases, there is a very small degree of spontaneous improvement, but not back to the prior visual baseline, and patients typically remain significantly visually impaired and legally blind. I again provided him with information for services for blind and low vision patients to learn to skills and how to make the best use of the vision that he has. Interval History: Last seen in the neuro-ophthalmology clinic on 12/14/2019. He reports subjective worsening (he reports that he is getting more blind ). He is currently taking Idebenone. He is still a daily tobacco smoker. He has not seen anyone at [facility], saying: I figure they can't do anything cause I can't see anything. He and his family have been using strategies to help him at home, such as gluing croutons to buttons so he can find them more easily. Summary of Clinical Course: Allow me to summarize his clinical course for my records: LHON Diagnosis: - Family history of blindness in a maternal uncle who in his 50s. - Symptoms of painless progressive vision change OD onset June 2019, OS onset July 2019. 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 - Cardiac assessment: EKG was performed and was normal, per patient. - Treatment: Idebenone started mid-November 2019. Disease Monitoring: - 08/25/2019: Initial neuro-ophthalmology consultation. [...] GCC 56 microns OD, 64 microns OS Current Medical Problems: Patient Active Problem List Diagnosis ??? Essential hypertension ??? Type 2 diabetes mellitus, with long-term current use of insulin (CMS/HCC) ??? Cataracts, both eyes ??? 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 Presbyopia of both eyes ??? Optic neuropathy of both eyes ? ? Eric hereditary optic neuropathy (m.35927 G>A, tested 08/25/2019) ??? 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 Tobacco abuse disorder Past Medical History: Past Medical History: Diagnosis Date ??? Cataracts, both eyes ??? Essential hypertension 08/25/2019 ? ? Eric hereditary optic neuropathy (m.06674 G>A, tested 08/25/2019) 10/06/2019 ??? 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 Pancreatitis 08/25/2019 ??? Presbyopia of both eyes ??? Strabismus ??? Type 2 diabetes mellitus, with long-term current use of insulin ([facility]) 08/25/2019 Past Surgical History: History reviewed. No [...] Heme/Lymph Last edited by Lilly Goodwin on 06/07/2020 9:06 AM. (History) Physical Exam: Base Eye Exam Visual Acuity (Snellen - Linear) Right Left Dist sc 1/200 3/200 Tonometry (Tonopen, 9:22 AM) Right Left Pressure 12 11 Pupils Dark Light Shape React APD Right 6 5.5 Round Minimal None Left 6 5.5 Round Minimal None Visual Romero (Counting fingers) Left Right Restrictions Total inferior temporal, inferior nasal deficiencies; Partial inner superior temporal,superior nasal deficiencies Partial inner superior temporal, inferior temporal, superior nasal, inferior nasal deficiencies Extraocular Movement Right Left Full Full Neuro/Psych Oriented x3: Yes Mood/Affect: Normal Dilation Both eyes: 1.0% Mydriacyl @ 9:23 AM Additional Tests Color Right Left Ishihara unable unable Strabismus Exam 0 0 0 0 0 0 0 0 0 0 0 0 0 0 0 0 Slit Lamp and Fundus Exam External Exam Right Left External Normal Normal Slit Lamp Exam Right Left Lids/Lashes Normal Normal Conjunctiva/Sclera White and quiet White and quiet Cornea Clear Clear Anterior Chamber Deep and quiet Deep and quiet Iris Round and reactive Round and reactive Lens Clear Clear Vitreous Normal Normal Fundus Exam Right Left Disc Temporal pallor Diffuse pallor C/D Ratio 0.25 0.2 Macula Normal Normal Vessels Normal Normal Periphery Normal Normal Testing: Antunez Visual Field - OU - Both Eyes Right Eye Fixation was good. Cooperation was good. Reliability was good. Left Eye Fixation was good. Cooperation was good. Reliability was good. Notes Size V stimulus: OD: Foveal threshold <0dB, FL 2/11, FP 0%, FN 4%. Generalized depression, more dense centrally. Appears stable but difficult for comparison given global depression OS: Foveal threshold <0dB, FL 6/14, FP 0%, FN 5% Generalized depression, more dense centrally. Appears stable but difficult for comparison given global depression Linked Images OCT, Retina - OU - Both Eyes Component Value Flag Ref Range Units Status Central Macular Thickness OS 259 mircometers Final Central Macular Thickness OD 249 micrometers Final Right Eye Quality was good. Scan locations included subfoveal. Progression has no prior data. Findings include normal observations. Macular thickness was 249 micrometers. Left Eye Quality was good. Scan locations included subfoveal. Progression has no prior data. Findings include normal observations. Macular thickness was 259 mircometers. Notes Mean GCC thickness: 50 microns OD, 49 microns OS. Progressed compared to OCT GCC 56 microns OD, 64 microns OS on 12/14/2019 (on Zeiss Cirrus OCT) Linked Images OCT, Optic Nerve - OU - Both Eyes Component Value Flag Ref Range Units Status RNFL OS 82 micrometers Final RNFL OD 89 micrometers Final Right Eye Reliability was good. Temporal thickness was normal. Superior thickness was normal. Nasal thicknesswas normal. Inferior thickness was normal. Average RNFL thickness 89 micrometers. Left Eye Reliability was good. Temporal thickness was normal. Superior thickness was normal. Nasal thicknesswas normal. Inferior progression was worsened. Inferior thickness was showing abnormal thinning. Average RNFL thickness 82 micrometers. 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 I discussed this patient with the resident and agree with the findings and plan as documented in the their note. I have made corrections and additions as appropriate. Swapna Bee MD Supervisor Pipeline Maintenance Department of Ophthalmology and Visual Sciences Department of Neurology [facility] documented in this encounter Plan of Treatment Not on file documented as of this encounter Procedures Procedure Name Priority Date/Time Associated Diagnosis Comments OCT, RETINA - OU - BOTH EYES Routine 06/07/2020 9:35 AM CDT Eric hereditary optic neuropathy OCT, OPTIC NERVE - OU - BOTH EYES Routine 06/07/2020 9:32 AM CDT Eric hereditary optic neuropathy ANTUNEZ VISUAL FIELD - OU - BOTH EYES Routine 06/07/2020 9:30 AM CDT Eric hereditary optic neuropathy documented in this encounter Results * OCT, Retina - OU - Both Eyes (06/07/2020 9:35 AM CDT) Pathologist [facility] Central Macular Thickness OS 259 [facility] Central Macular Thickness OD 249 micrometers Anatomical Region Laterality Modality Head Optical Coherenc e Tomography Narrative 06/07/2020 4:56 PM CDT Right Eye Quality was good. Scan locations included subfoveal. Progression has no prior data. Findings include normal observations. Macular thickness was 249 micrometers. Left Eye Quality was good. Scan locations included subfoveal. Progression has no prior data. Findings include normal observations. Macular thickness was 259 mircometers. Notes Mean GCC thickness: 50 microns OD, 49 microns OS. Progressed compared to OCT GCC 56 microns OD, 64 microns OS on 12/14/2019 (on Zeiss Cirrus OCT) Result Selene Haas MD OPHTH TOMOGRAPHY Final Result * OCT, Optic Nerve - OU - Both Eyes (06/07/2020 9:32 AM CDT) RNFL OS 82 micrometers RNFL OD 89 micrometers Anatomical Region Laterality Modality Head Optical Coherenc e Tomography Narrative 06/07/2020 4:55 PM CDT Right Eye Reliability was good. Temporal thickness was normal. Superior thickness was normal. Nasal thickness was normal. Inferior thickness was normal. Average RNFL thickness 89 micrometers. Left Eye Reliability was good. Temporal thickness was normal. Superior thickness was normal. Nasal thickness was normal. Inferior progression was worsened. Inferior thickness was showing abnormal thinning. Average RNFL thickness 82 micrometers. Notes Expected interval decrease in RNFL thickness OU compared to OCT RNFL 104 microns OD, 102 microns OS on 12/14/2019 (Performed on Zeiss Cirrus OCT) Result Selene Haas MD OPHTH TOMOGRAPHY Final Result * Antunez Visual Field - OU - Both Eyes (06/07/2020 9:30 AM CDT) Anatomical Region Laterality Modality Head Visual Field Narrative 06/07/2020 4:54 PM CDT Right Eye Fixation was good. Cooperation was good. Reliability was good. Left Eye Fixation was good. Cooperation was good. Reliability was good. Notes Size V stimulus: OD: Foveal threshold <0dB, FL 2/11, FP 0%, FN 4%. Generalized depression, more dense centrally. Appears stable but difficult for comparison given global depression OS: Foveal threshold <0dB, FL 6/14, FP 0%, FN 5% Generalized depression, more dense centrally. 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) Tobacco abuse disorder documented in this encounter Eye Exam Visual Acuity (Snellen - Linear) Right eye Left eye Dist sc 1/200 3/200 Tonometry (Tonopen, 9:22 AM) Right eye Left eye Pressure 12 11 Pupils Dark Light Shape React APD Right eye 6 5.5 Round Minimal None Left eye 6 5.5 Round Minimal None Visual Romero (Counting fingers) Right eye Left eye Restrictions Partial inner superi or temporal, inferior temporal, superior nasal, inferior nasal deficiencies Total inferior temporal, inferior nasal deficiencies; Partial inner superior temporal, superior nasal deficiencies Extraocular Movement Right eye Left eye Full Full Neuro/Psych Oriented x3: Yes Mood/Affect: Normal Dilation Both eyes: 1.0% Mydriacyl @ 9:23 AM Color Right eye Left eye Ishihara unable unable External Exam Right eye Left eye External Normal Normal Slit Lamp Exam Right eye Left eye Lids/Lashes Normal Normal Conjunctiva/Sclera White and quiet White and guanaco et Cornea Clear Clear Anterior Chamber Deep and quiet Deep and quiet Iris Round and reactive Round and vin ctive Lens Clear Clear Vitreous Normal Normal Fundus Exam Right eye Left eye Disc Temporal pallor Diffuse pallor C/D Ratio 0.25 0.2 Macula Normal Normal Vessels Normal Normal Periphery Normal Normal Strabismus Exam Right eye Left eye Up gaze 0 0 0 0 0 0 Right/left gaze 0 -- 0 0 -- 0 Down gaze 0 0 0 0 0 0 Care Teams Apartment Maintenance Supervisor Relationship Specialty Start Date End Date Artemio Park MD [address] [place] [address] PCP - General Family Medicine 08/14/19 Bob Sanchez MD [address] [place] [address] Primary Eye Care Provider Ophthalmology 08/25/19 Quincy Diego MD [address] [place] [address] Consulting Physician Ophthalmology 08/25/19 documented as of this encounter
--- OUTSIDE RECORDS SUMMARY | 2024-10-31 10:07 | XMS_ITS | Encounter Summary ---
Author Organization [facility] Address [address] [place] [address] Phone Care Team Providers Care Housekeeper Manager Name Role Phone Artemio Park MD Primary Care Provider [phone] Bob Sanchez MD Unavailable [phone] Quincy Diego MD Unavailable Reason for Visit * Reason Onset Date Comments Dr eBe - Test Results 09/14/2019 Encounter Details Date Type Department Care Team (Late st Contact Info) Description 09/14/2019 Telephone [facility] Ophthalmology [address] [facility] 6th [place] [address] Swapna Bee MD [address] [place] [address] [address] [place] [address] Dr Bee - Test Results Social History Tobacco Use Types Packs/Day Years Used Date Smoking Tobacco: Every Day Cigarettes Alcohol Use Standard Drinks/Week Comments Yes 6 (1 standard drink = 0.6 oz pur e alcohol) Sex and Gender Information Value Date Recorded Sex Assigned at Not on file 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 Called and spoke to the patient. Updated him that he tested positive for Lebers hereditary optic neuropathy. He stated that he would like to talk more about it tomorrow. RER HIDES AND SKINS documented in this encounter Plan of Treatment Not on file documented as of this encounter Visit Diagnoses Not on filedocumented in this encounter Care Teams Housekeeper Manager Relationship Specialty Start Date End Date Artemio Park MD [address] [employer] [address] [place] [address] PCP - General Family Medicine 08/14/19 Bob Sanchez MD [address] [employer] [address] [place] [id number] Primary Eye Care Provider Ophthalmology 08/25/19 Quincy Diego MD [address] [employer] [address] [place] [phone] Consulting Physician Ophthalmology 08/25/19 documented as of this encounter
--- OUTSIDE RECORDS SUMMARY | 2024-10-31 10:07 | XMS_ITS | Encounter Summary ---
Author Organization [facility] Address [address] [place] [address] Phone Care Team Providers Care Employment Advisor Name Role Phone Artemio Park MD Primary Care Provider [phone] Bob Sanchez MD Unavailable [phone] Quincy Diego MD Unavailable Encounter Details Date Type Department Care Team (Late st Contact Info) Description 08/14/2019 Telephone [facility] Ophthalmology [address] [place], [place] [id number] Joshua Roy MD [address] [id number] Social History Tobacco Use Types Packs/Day Years Used Date Smoking Tobacco: Never Assessed Sex and Gender Information Value Date Recorded Sex Assigned at Not on file 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 Appt. For at 1 and testing to follow. He will call back and let us know if that's alright. Dr. Clarke office referring for vision * Telephone Encounter - Megan Diop - 08/14/2019 9:[address] Clarke office referring for vision faxing over notes to see neuro documented in this encounter Plan of Treatment Not on file documented as of this encounter Visit Diagnoses Not on filedocumented in this encounter Care Teams Employment Advisor Relationship Specialty Start Date End Date Artemio Park MD [address] [employer] [address] [place] [phone] PCP - General Family Medicine 08/14/19 Bob Sanchez MD [address] [employer] [address] [place] [phone] Primary Eye Care Provider Ophthalmology 08/25/19 Quincy Diego MD [address] [employer] [address] Consulting Physician Ophthalmology 08/25/19 documented as of this encounter
--- OUTSIDE RECORDS SUMMARY | 2024-10-31 10:07 | XMS_ITS | Encounter Summary ---
Author Organization [facility] Address [address] [place] [address] Phone Care Team Providers Care Cone Machine Feeder Name Role Phone Artemio Park MD Primary Care Provider [phone] Bob Sanchez MD Unavailable [phone] Quincy Diego MD Unavailable Encounter Details Date Type Department Care Team (Late st Contact Info) Description 09/22/2019 Telephone [facility] Ophthalmology [facility] 6th [place] [address] Merlene Son Social History Tobacco Use Types Packs/Day Years Used Date Smoking Tobacco: Every Day Cigarettes Alcohol Use Standard Drinks/Week Comments Yes 6 (1 standard drink = 0.6 oz pur e alcohol) Sex and Gender Information Value Date Recorded Sex Assigned at Not on file 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 Wanted to give him the phone number to low vision center Per Dr. Bee. [phone] R ASSEMBLER * Telephone Encounter - Merlene Son - 09/22/2019 10:14 AM CST ----- Message from Swapna Bee MD sent at 09/15/2019 10:35 AM SHEAR ASSEMBLER ----- Regarding: Low Vision Appointment This patient needs an appointment with the Low Vision clinic. Find out if it is possible to get it scheduled on the same day he sees me to help him with travel costs and logistics. We can change his follow up with me if necessary. R ASSEMBLER documented in this encounter Plan of Treatment Not on file documented as of this encounter Visit Diagnoses Not on filedocumented in this encounter Care Teams Cone Machine Feeder Relationship Specialty Start Date End Date Artemio Park MD [address] [employer] [address] [place] [address] PCP - General Family Medicine 08/14/19 Bob Sanchez MD [address] [address] Primary Eye Care Provider Ophthalmology 08/25/19 Quincy Diego MD [address] [employer] [address] [place] [id number] Consulting Physician Ophthalmology 08/25/19 documented as of this encounter
--- OUTSIDE RECORDS SUMMARY | 2024-10-31 10:07 | XMS_ITS | Encounter Summary ---
Author Organization 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 Procedures OCT, Retina - OU - Both Eyes Swapna Bee MD [address] [place] [address] Phone: tel: fax: [facility] (All Locations) Referral ID Status Reason Start Date Expiration Date Visits Re quested Visits Authorized [id number] Closed 03/14/2021 04/13/2022 1 1 * Diagnostic Imaging (Routine) - Closed Specialty Diagnoses / Procedures Referred By Viv farley Referred To Contact Diagnoses 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 Procedures OCT, Optic Nerve - [place] [address] [place] [address] Phone: tel: fax: [facility] (All Locations) Referral ID Status Reason Start Date Expiration Date Visits Re quested Visits Authorized [id number] Closed 03/14/2021 04/13/2022 1 1 * Diagnostic Imaging (Routine) - Closed Specialty Diagnoses / Procedures Referred By Viv t Referred To Contact Diagnoses 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 Procedures Antunez Visual Field - OU - Both Eyes Swapna Bee MD [address] [address] Phone: tel: fax: [facility] (All Locations) Referral ID Status Reason Start Date Expiration Date Visits Re quested Visits Authorized [id number] Closed 03/14/2021 04/13/2022 1 1 Encounter Details Date Type Department Care Team (Late st Contact Info) Description 03/14/2021 9:15 AM CDT Office Visit [facility] Ophthalmology [address] [place] [address] [place] [address] Swapna Bee MD [address] [address] Julissa hereditary optic neuropathy (Primary Dx); Optic [...] on file Legal Sex Male 3:22 AM [employer]OUNTAIN J[employer] Gender Identity Not on file Sexual Orientation Not on file documented as of this encounter Patient Instructions * Patient Instructions* Swapna Bee MD - 03/14/2021 9:15 AM CDT Dilation instructions Please refer to your Dilating Eyedrops brochure for instructions regarding dilation. documented in this encounter Progress Notes * Swapna Bee MD - 03/14/2021 9:15 AM CDT NEURO-OPHTHALMOLOGY CLINIC FOLLOW-UP Gamaliel Moscoso is a 60 y.o. 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 Assessment: Stable optic atrophy OU. Plan: - Continue idebenone if able. We discussed that if this is a financial burden that he can stop it at this point, as there is not data on longer courses of idebenone, but he can continue if he is able. -??Low Vision Referral. He was given another information packet about Low Vision. - Urged not to smoke. - Neuro-ophthalmology clinic follow-up in 1 year. Patient Counseling/ Additional Information: He was again counseled not to smoke.??We again discussed tobacco and as specific metabolic stressors that may worsen the optic nerve damage. We discussed that idebenone is a financial burden that he can stop it at this point, as there is not data on longer courses of idebenone, but he can continue if he is able. I??again??confirmed that he has the information for??services for blind and low vision patients to learn to skills and how to??make??the best use??of??the vision that he has. He was instructed to call if he has any vision changes or concerns before his next appointment. Interval History: Last seen in the neuro-ophthalmology clinic on 09/13/2020. No vision improvement. Reports occasional fluctuations in vision. He is still taking idebenone, which he orders online. He has not pursued low vision consultation. He uses voice controls on his smartphone and has glued beads to mott buttons on his TV remote and microwave. He continues to smoke. Summary of Clinical Course: Allow me to summarize his clinical course for my records: LHON Diagnosis: -??Family history of blindness in a maternal uncle who in his 50s. - Symptoms of painless progressive vision change OD onset June 2019, OS onset July 2019. -??Julissa hereditary optic neuropathy genetic test??was positive for MT-ND4/LHON mutation [id number]>A; [id number] mutation??(08/25/2019). - Neuroimaging:??MRI brain and orbits without and with contrast showed??old lacunar basal ganglia infarcts, mild white matter disease, and possible left mastoiditis??(08/20/2019). -??Cardiac assessment:??EKG was performed and was normal, per patient. - Treatment: Idebenone started mid-November 2019. ?? Disease Monitoring: - 08/25/2019: Initial neuro-ophthalmology??consultation. Examination showed VAcc 6/200 phni OD, 20/200 phni OS; 0/11 color plates OD, 1.5/11 color plates OS; a trace RAPD OD; and normal appearance ofthe optic discs other than mild hyperemia OD. OCT showed RNFL elevation OU (105 microns OD, 118 microns OS), and mild parafoveal ganglion cell complex thinning OD. -??10/06/2019: Neuro-ophthalmology follow-up. Examination showed VA 5/200 OD, [...] OCT RNFL 104 microns OD, 102 microns OS;??GCC 56 microns OD, 64 microns OS - 06/07/2020: Neuro-ophthalmology follow-up. Examination showed VAcc 1/200 OD, 3/200 OS; HVF showed severe, diffuse depression, worst centrally OU; and temporal pallor of the optic discs OU. OCT RNFL 89 microns OD, 89 microns OS;??GCC 50 microns OD, 49 microns OS. - 09/13/2020: Neuro-ophthalmology follow-up. Examination showed VAcc 1.5/200 OD, 3/200 OS; HVF showed generalized depression, inferior > superior, OU. OCT RNFL 81 microns OD, 77 microns OS;??GCC 50microns OD, 49 microns OS. Current Medical Problems: Patient Active Problem List Diagnosis ??? Essential hypertension ??? Type 2 diabetes mellitus, with long-term current use of insulin (CMS/HCC) ??? Cataracts, both eyes ??? 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 Presbyopia of both eyes ??? Optic neuropathy of both eyes ? ? Julissa hereditary optic neuropathy (m.41949 G>A, tested 08/25/2019) ??? 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 Tobacco abuse disorder Past Medical History: Past Medical History: Diagnosis Date ??? Cataracts, both eyes ??? Essential hypertension 08/25/2019 ? ? Julissa hereditary optic neuropathy (m.[id number] G>A, tested 08/25/2019) 10/06/2019 ??? 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 Pancreatitis 08/25/2019 ??? Presbyopia of both eyes ??? Strabismus ??? Type 2 diabetes mellitus, with long-term current use of insulin (CMS/HCC) 08/25/2019 Past Surgical History: History reviewed. No [...] Heme/Lymph Last edited by Lilly Goodwin on 03/14/2021 10:46 AM. (History) Physical Exam: Base Eye Exam Visual Acuity (Snellen - Linear) Right Left Dist sc 3/200 3/200 Tonometry (Tonopen, 10:58 AM) Right Left Pressure 09 11 Pupils Dark Light Shape React APD Right 5.5 5 Round Minimal None Left 5.5 5 Round Minimal None Visual Romero Left Right Restrictions Partial inner superior temporal, inferior temporal, superior nasal, inferior nasal deficiencies Partial inner superior temporal, inferior temporal, superior nasal, inferior nasal deficiencies Extraocular Movement Right Left Full Full Neuro/Psych Oriented x3: Yes Mood/Affect: Normal Dilation Both eyes: 1.0% Mydriacyl @ 10:59 AM Additional Tests Color Right Left Ishihara unable unable Slit Lamp and Fundus Exam External Exam Right Left External Normal Normal Slit Lamp Exam Right Left Lids/Lashes Normal Normal Conjunctiva/Sclera White and quiet White and quiet Cornea Clear Clear Anterior Chamber Deep and quiet Deep and quiet Iris Round and reactive Round and reactive Lens Clear Clear Vitreous Normal Normal Fundus Exam Right Left Disc Diffuse pallor Diffuse pallor C/D Ratio 0.25 0.2 Macula Normal Normal Vessels Normal Normal Testing: Antunez Visual Field - OU - Both Eyes SIZE 5 STIMULUS Generalized depression, inferior > superior, OU Stable compared to prior HVF on 09/13/2020 OCT, Optic Nerve - OU - Both Eyes Component Value Flag Ref Range Units Status RNFL OS 71 micrometers Final RNFL OD 73 micrometers Final Right Eye Reliability was good. Average RNFL thickness 73 micrometers. Left Eye Reliability was good. Average RNFL thickness 71 micrometers. Notes Expected interval progression of RNFL thinning OU (Performed on Zeiss Cirrus OCT) OCT, Retina - OU - Both Eyes Component Value Flag Ref Range Units Status Central Macular Thickness OS 214 mircometers Final Central Macular Thickness OD 255 micrometers Final Right Eye Quality was good. Progression has no prior data. Macular thickness was 255 micrometers. Left Eye Quality was good. Progression has no prior data. Macular thickness was 214 mircometers. Notes Stable, diffuse ganglion cell complex thinning OU, with mean GCC thickness: 45 microns OD, 49 microns OS (on Zeiss [...] due to Julissa heriditary optic neuropathy (LHON) I was present with the resident during the history and exam. I discussed this patient with the resident and agree with the findings and plan as documented in the their note. I have made corrections and additions as appropriate. 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 Progression has no prior data. Macular thickness was 255 micrometers. Left Eye Quality was good. Progression has no prior data. Macular thickness was 214 mircometers. Notes Stable, diffuse ganglion cell complex thinning OU, with mean GCC thickness: 45 microns OD, 49 microns OS (on Zeiss Cirrus OCT) us Swapna Bee MD OPHTH TOMOGRAPHY Final Resu lt * OCT, Optic Nerve - OU - Both Eyes (03/14/2021 11:09 AM CDT) RNFL OS 71 micrometers RNFL OD 73 micrometers Anatomical Region Laterality Modality Head Optical Coherenc e Tomography Narrative 03/14/2021 11:09 AM CDT Right Eye Reliability was good. Average RNFL thickness 73 micrometers. Left Eye Reliability was good. Average RNFL thickness 71 micrometers. Notes Expected interval progression of RNFL thinning OU (Performed on Zeiss Cirrus OCT) us Swapna Bee MD OPHTH TOMOGRAPHY Final Resu lt * Antunez Visual Field - OU - Both Eyes (03/14/2021 11:08 AM CDT) Anatomical Region Laterality Modality Head Visual Field Narrative 03/14/2021 11:08 AM CDT SIZE 5 STIMULUS Generalized depression, inferior > superior, OU Stable compared to prior HVF on 09/13/2020 us Swapna Bee MD OPHTH VISUAL FIELD Final Re sult documented in this encounter Visit Diagnoses Diagnosis Julissa hereditary optic neuropathy- Primary Hereditary optic atrophy Optic neuropathy of both eyes Other optic neuritis 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) documented in this encounter Eye Exam Visual Acuity (Snellen - Linear) Right eye Left eye Dist sc 3/200 3/200 Tonometry (Tonopen, 10:58 AM) Right eye Left eye Pressure 09 11 Pupils Dark Light Shape React APD Right eye 5.5 5 Round Minimal None Left eye 5.5 5 Round Minimal None Visual Romero Right eye Left eye Restrictions Partial inner superi or temporal, inferior temporal, superior nasal, inferior nasal deficiencies Partial inner superior temporal, inferior temporal, superior nasal, inferior nasal deficiencies Extraocular Movement Right eye Left eye Full Full Neuro/Psych Oriented x3: Yes Mood/Affect: Normal Dilation Both eyes: 1.0% Mydriacyl @ 10:59 AM Color Right eye Left eye Ishihara [...] Fundus Exam Right eye Left eye Disc Diffuse pallor Diffuse pallor C/D Ratio 0.25 0.2 Macula Normal Normal Vessels Normal Normal Care Teams Paper Twister Relationship Specialty Start Date End Date Artemio Park MD [id number] [address] PCP - General Family Medicine 08/14/19 Bob Sanchez MD [id number] [address] Primary Eye Care Provider Ophthalmology 08/25/19 Quincy Diego MD [id number] [address] Consulting Physician Ophthalmology 08/25/19 documented as of this encounter
--- OUTSIDE RECORDS SUMMARY | 2024-10-31 10:07 | XMS_ITS | Encounter Summary ---
Author Organization [facility] Healthcare Address [address] [place] [address] Care Team Providers Care Fishing Manager Name Role Phone Artemio Park MD Primary Care Provider [phone] Bob Sanchez MD Unavailable [phone] Quincy Diego MD Unavailable Encounter Details Date Type Department Care Team (Late st Contact Info) Description 08/25/2019 4:25 PM CDT Lab 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 Gender Identity Not on file Sexual Orientation Not on file documented as of this encounter Plan of Treatment Not on file documented as of this encounter Procedures Procedure Name Priority Date/Time Associated Diagnosis Comments TREPONEMAL IGG/IGM Routine 08/25/2019 4: 20 PM CDT Vision loss, bilateral Optic neuropathy of both eyes MYELIN OLIGODENDROCYTE GLYCOPROTEIN (MOG-IGG1) FLUORESCENCE-ACTIVATED CELL SORTING (FACS) Routine 08/25/2019 4:20 PM CDT Vision loss, bilateral Optic neuropathy of both eyes MISCELLANEOUS MOLECULAR SEND-OUT REQUEST Routine 08/25/2019 4:20 PM CDT NMO (NEUROMYELITIS OPTICA) IGG, SERUM Routine 08/25/2019 4:20 PM CDT Vision loss, bilateral Optic neuropathy of both eyes HIV 1/2 ANTIBODY PLUS P24 ANTIGEN Routine 08/25/2019 4:20 PM CDT Vision loss, bilateral Optic neuropathy of both eyes METHYLMALONIC ACID, SERUM Routine 08/25/2019 4:20 PM CDT Vision loss, bilateral Optic neuropathy of both eyes COPPER, SERUM Routine 08/25/2019 4:20 PM CDT Vision loss, bilateral Optic neuropathy of both eyes RPR Routine 08/25/2019 4:20 PM CDT Vision loss, bilateral Optic neuropathy of both eyes ERYTHROCYTE SEDIMENTATION RATE Routine 08/25/2019 4:20 PM CDT Vision loss, bilateral Optic neuropathy of both eyes CBC WITHOUT DIFFERENTIAL Routine 08/25/2019 4:20 PM CDT Vision loss, bilateral Optic neuropathy of both eyes CRP (ACUTE PHASE) Routine 08/25/2019 4:2 0 PM CDT Vision loss, bilateral Optic neuropathy of both eyes VITAMIN B1 Routine 08/25/2019 4:20 PM CDT Vision loss, bilateral Optic neuropathy of both eyes FOLATE Routine 08/25/2019 4:20 PM CDT Vision loss, bilateral Optic neuropathy of both eyes VITAMIN B12 Routine 08/25/2019 4:20 PM CDT Vision loss, bilateral Optic neuropathy of both eyes documented in this encounter Results * -Miscellaneous Molecular Send-out Request (08/25/2019 4:20 PM CDT) Result 1 Test Name: Julissa's Hereditary Optic Neuropathy Specimen Type: [facility] Test name Julissa's Hereditary Optic Neuropathy [facility] Blood specimen (specimen) 08/25/2019 4:20 PM CDT 08/26/2019 7:30 AM CDT Swapna Bee MD LAB GENETIC TESTING Final R esult Performing Organization Address [facility] Co de Phone Number AMANDA HALL [facility] Department [place] [address] * Myelin Oligodendrocyte Glycoprotein (MOG-IgG1) Fluorescence-Activated Cell Sorting (FACS) (08/25/2019 4:20 PM CDT) Pathologist [facility] MOG IgG ser Negative Negative [facility] Comment: No informative autoantibodies were detected in this evaluation. A negative result does not preclude a diagnosis of an inflammatory DIVISION HUMAN RESOURCES MANAGER demyelinating disorder. ADDITIONAL INFORMATION This test was developed and its performance characteristics determined by [facility] in a manner consistent with CLIA requirements. This test has not been cleared or approved by the U.S. Food and Drug Administration. Test Performed by: [facility] [place] [address] Head Of Digital: Shant Doll M.D. Ph.D.; CLIA# [id number] Blood specimen (specimen) 08/25/2019 4:20 PM CDT 08/25/2019 5:51 PM CDT Swapna Bee MD LAB BLOOD ORDERABLES Final Result Performing Organization Address [facility] Co de Phone Number AMANDA STARR [address] [place] [address] * NMO (neuromyelitis optica) IgG, serum (08/25/2019 4:20 PM CDT) Pathologist [facility] NMO/AQP4 IgG ser Negative Negative [facility] Comment: Recommend repeat testing in 6 months if clinical suspicion is high. Negative result can occur in the setting of immunosuppression. ADDITIONAL INFORMATION This test was developed and its performance characteristics determined by [facility] in a manner consistent with CLIA requirements. This test has not been cleared or approved by the U.S. Food and Drug Administration. Test Performed by: [facility] - [address] [address] Head Of Digital: Shant Doll M.D. Ph.D.; CLIA# [id number] Blood specimen (specimen) 08/25/2019 4:20 PM CDT 08/25/2019 6:02 PM CDT us Swapna Bee MD LAB BLOOD ORDERABLES Final Result Performing Organization Address [facility] Co de Phone Number [facility] [address] [place] [address] * (ABNORMAL) CBC without differential (08/25/2019 4:20 PM CDT) WBC 9.4 3.8 - 9.9 K/cumm [facility] Hgb 14.5 13.0 - 17.5 g/dL [facility] Hct 43.8 38.9 - 50.3 % [facility] Plt 292 150 - 400 K/cumm [facility] MPV 10.7 9.1 - 12.3 fL [facility] RBC 4.52 4.30 - 5.80 M/cumm [facility] MCV 96.9(H) 81.3 - 96.4 fL [facility] MCH 32.1 27.1 - 33.3 pg [facility] MCHC 33.1 32.3 - 35.7 g/dL [facility] RDW CV 12.9 11.1 - 14.9 % [facility] RDW SD 46.0 35.7 - 48.1 fL [facility] NRBC abs 0.00 0.00 - 0.01 K/cumm [facility] Blood specimen (specimen) 08/25/2019 4:20 PM CDT 08/25/2019 5:17 PM CDT us Swapna Bee MD LAB BLOOD ORDERABLES Final Result Performing Organization Address City/State/[facility] Co de Phone Number [address] [address] * Folate (08/25/2019 4:20 PM CDT) Pathologist [facility] Folic acid 17.7 >=5.0 ng/mL [facility] Blood specimen (specimen) 08/25/2019 4:20 PM CDT 08/25/2019 5:17 PM CDT us Swapna Bee MD LAB BLOOD ORDERABLES Final Result Performing Organization Address [facility] Co de Phone Number [address] [address] * CRP (acute phase) (08/25/2019 4:20 PM CDT) [facility] CRP 3.3 <=10.0 mg/L [facility] Blood specimen (specimen) 08/25/2019 4:20 PM CDT 08/25/2019 5:17 PM CDT us Swapna Bee MD LAB BLOOD ORDERABLES Final Result Performing Organization Address [facility] de Phone Number [address] [address] * Erythrocyte sedimentation rate (08/25/2019 4:20 PM CDT) [facility] Erythrocyte sedimentation rate 8 1 - 20 mm/hr [facility] Blood specimen (specimen) 08/25/2019 4:20 PM CDT 08/25/2019 5:17 PM CDT us Swapna Bee MD LAB BLOOD ORDERABLES Final Result Performing Organization Address [facility] Co de Phone Number [address] [address] * Vitamin B1 (08/25/2019 4:20 PM CDT) Pathologist [facility] Thiamine (Vit B1) 173 70 - 180 nmol/L [facility] Comment: ADDITIONAL INFORMATION This test was developed and its performance characteristics determined by [facility] in a manner consistent with CLIA requirements. This test has not been cleared or approved by the U.S. Food and Drug Administration. Test Performed by: [facility] [address] [place] [address] Head Of Digital: Shant Doll M.D. Ph.D.; CLIA# [id number] Blood specimen (specimen) 08/25/2019 4:20 PM CDT 08/25/2019 6:01 PM CDT us Swapna Bee MD LAB BLOOD ORDERABLES Final Result Performing Organization Address [facility] Co de Phone Number [address] [address] * Vitamin B12 (08/25/2019 4:20 PM CDT) Vitamin B12 940 230 - 1,250 pg/mL [facility] Blood specimen (specimen) 08/25/2019 4:20 PM CDT 08/25/2019 5:17 PM CDT us Swapna Bee MD LAB BLOOD ORDERABLES Final Result Performing Organization Address [facility] de Phone Number [facility] [address] [place] [address] * Methylmalonic acid, serum (08/25/2019 4:20 PM CDT) MMA 0.10 <=0.40 nmol/mL [facility] Comment: ADDITIONAL INFORMATION This test was developed and its performance characteristics determined by [facility] in a manner consistent with CLIA requirements. This test has not been cleared or approved by the U.S. Food and Drug Administration. Test Performed by: [facility] - [facility] [address] [place] [address] Head Of Digital: Shant Doll M.D. Ph.D.; CLIA# [id number] Blood specimen (specimen) 08/25/2019 4:20 PM CDT 08/25/2019 5:31 PM CDT us Swapna Bee MD LAB BLOOD ORDERABLES Final Result Performing Organization Address [facility] Co de Phone Number AMANDA [address] [address] * Copper, serum (08/25/2019 4:20 PM CDT) Pathologist [facility] Copper 0.97 0.75 - 1.45 mcg/mL [facility] Comment: ADDITIONAL INFORMATION This test was developed and its performance characteristics determined by [facility] in a manner consistent with CLIA requirements. This test has not been cleared or approved by the U.S. Food and Drug Administration. Test Performed by: [facility] [address] [place] [address] Head Of Digital: Shant Doll M.D. Ph.D.; CLIA# [id number] Blood specimen (specimen) 08/25/2019 4:20 PM CDT 08/25/2019 5:26 PM CDT us Swapna Bee MD LAB BLOOD ORDERABLES Final Result Performing Organization Address [facility] Co de Phone Number [place] [address] * HIV 1/2 Antibody plus p24 Antigen (08/25/2019 4:20 PM CDT) Pathologist [facility] HIV 1/2 ab + p24 ag Nonreactive Nonreactive [facility] Comment: Nonreactive for HIV-1 antigen and HIV-1/HIV-2 antibodies. No laboratory evidence of HIV infection. If acute HIV infection is suspected, consider testing for HIV-1 RNA. Blood specimen (specimen) 08/25/2019 4:20 PM CDT 08/25/2019 5:17 PM CDT us Swapna Bee MD LAB MICROBIOLOGY - GENERAL ORDERABLES Final Result Performing Organization Address [facility] Co de Phone Number [address] [address] * RPR (08/25/2019 4:20 PM CDT) RPR Nonreactive Nonreactive [facility] Blood specimen (specimen) 08/25/2019 4:20 PM CDT 08/25/2019 5:17 PM CDT us Swapna Bee MD LAB MICROBIOLOGY - GENERAL ORDERABLES Final Result Performing Organization Address [facility] de Phone Number [address] [address] * Treponemal IgG/IgM Blood (08/25/2019 4:20 PM CDT) Treponemal IgG/IgM Nonreactive Nonreactive [facility] Comment: Interpretive Data: If test is reported as EQUIVOCAL, a new sample should be drawn in two weeks for testing. Current interpretive data was last revised on 2019. Blood specimen (specimen) 08/25/2019 4:20 PM CDT 08/25/2019 5:17 PM CDT us Swapna Bee MD LAB MICROBIOLOGY - GENERAL ORDERABLES Final Result Performing Organization Address [facility] de Phone Number [address] [address] documented in this encounter Visit Diagnoses Diagnosis Vision loss, bilateral Unqualified visual loss, both eyes Optic neuropathy of both eyes Other optic neuritis documented in this encounter Care Teams Fishing Manager Relationship Specialty Start Date End Date Artemio Park MD [address] [address] PCP - General Family Medicine 08/14/19 Bob Sanchez MD [address] [address] Primary Eye Care Provider Ophthalmology 08/25/19 Quincy Diego MD [address] [address] Consulting Physician Ophthalmology 08/25/19 documented as of this encounter
--- OUTSIDE RECORDS SUMMARY | 2024-10-31 10:07 | XMS_ITS | Encounter Summary ---
Author Organization [facility] Healthcare Address [address] [place] [address] Care Team Providers Care Narcotics Detective Name Role Phone Artemio Prak MD Primary Care Provider [phone] Bob Sanchez MD Unavailable [phone] Quincy Diego MD Unavailable Encounter Details Date Type Department Care Team (Late st Contact Info) Description 08/26/2019 6:50 AM CDT Lab [address] [address] Social History Tobacco Use Types Packs/Day Years Used Date Smoking Tobacco: Every Day Cigarettes Alcohol Use Standard Drinks/Week Comments Yes 6 (1 standard drink = 0.6 oz pur e alcohol) Sex and Gender Information Value Date Recorded Sex Assigned at Not on file Legal 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
--- OUTSIDE RECORDS SUMMARY | 2024-10-31 10:07 | XMS_ITS | Encounter Summary ---
Author Organization [facility] Address [address] [place] [address] Phone Care Team Providers Care Packaging Manager Name Role Phone Artemio Park MD Primary Care Provider [phone] Bob Sanchez MD Unavailable [phone] Quincy Diego MD Unavailable Reason for Visit * (Routine) - Closed Specialty Diagnoses / Procedures Referred By Contac t Referred To Contact Diagnoses Vision loss, bilateral Encounter for observation for other suspected diseases and conditions ruled out Optic neuropathy of both eyes Procedures OCT, Optic Nerve - OU - Both Eyes Swapna Bee MD Phone: tel: fax: [facility] (All Locations) Referral ID Status Reason Start Date Expiration Date Visits Re quested Visits Authorized [id number] Closed 10/06/2019 04/16/2021 1 1 Encounter Details Date Type Department Care Team (Late st Contact Info) Description 10/06/2019 1:40 PM EXHAUST AND MUFFLER REPAIRER Imaging Exam [facility] Ophthalmology [address] [facility] [place] Outpatient Health [address]th [place] [phone] Social History Tobacco Use Types Packs/Day Years Used Date Smoking Tobacco: Every Day Cigarettes Alcohol Use Standard Drinks/Week Comments Yes 6 (1 standard drink = 0.6 oz pur e alcohol) Sex and Gender Information Value Date Recorded Sex Assigned at Not on file Legal Sex Male 3:22 AM EXHAUST AND MUFFLER REPAIRER Gender Identity Not on file Sexual Orientation Not on file documented as of this encounter Plan of Treatment Not on file documented as of this encounter Procedures Procedure Name Priority Date/Time Associated Diagnosis Comments OCT, OPTIC NERVE - OU - BOTH EYES Routine 10/06/2019 2:33 PM EXHAUST AND MUFFLER REPAIRER Vision loss, bilateral Encounter for observation for other suspected diseases and conditions ruled out Optic neuropathy of both eyes OCT, RETINA - OU - BOTH EYES Routine 10/06/2019 2:32 PM EXHAUST AND MUFFLER REPAIRER Vision loss, bilateral Encounter for observation for other suspected diseases and conditions ruled out Optic neuropathy of both eyes documented in this encounter Results * OCT, Optic Nerve - OU - Both Eyes (10/06/2019 2:33 PM EXHAUST AND MUFFLER REPAIRER) RNFL OS 102 micrometers RNFL OD 104 micrometers Anatomical Region Laterality Modality Head Optical Coherenc e Tomography Narrative 10/06/2019 3:17 PM EXHAUST AND MUFFLER REPAIRER Right Eye Reliability was good. Temporal thickness was normal. Superior thickness was showing abnormal thickness. Nasal thickness was normal. Inferior thickness was normal. Average RNFL thickness 104 micrometers. Left Eye Reliability was good. Temporal thickness was normal. Superior thickness was showing abnormal thickness. Nasal thickness was normal. Inferior thickness was normal. Average RNFL thickness 102 micrometers. Notes Normal mean RNFL thickness OU us Swapna Bee MD OPHTH TOMOGRAPHY Final Resu lt * OCT, Retina - OU - Both Eyes (10/06/2019 2:32 PM EXHAUST AND MUFFLER REPAIRER) Central Macular Thickness OS 227 mircometers Central Macular Thickness OD 223 micrometers Anatomical Region Laterality Modality Head Optical Coherenc e Tomography Narrative 10/06/2019 3:17 PM EXHAUST AND MUFFLER REPAIRER Right Eye Quality was good. Progression has no prior data. Findings include normal observations. Macular thickness was 223 micrometers. Left Eye Quality was good. Progression has no prior data. Findings include normal observations. Macular thickness was 227 mircometers. Notes Diffuse ganglion cell complex thinning OU: 56 microns OD, 64 microns OS us Swapna Bee MD OPHTH TOMOGRAPHY Final Resu lt documented in this encounter Visit Diagnoses Not on filedocumented in this encounter Care Teams Packaging Manager Relationship Specialty Start Date End Date Artemio Park MD [address] [employer] [address] PCP - General Family Medicine 08/14/19 Bob Sanchez MD [address] [address] Primary Eye Care Provider Ophthalmology 08/25/19 Quincy Diego MD [address] [address] Consulting Physician Ophthalmology 08/25/19 documented as of this encounter
--- OUTSIDE RECORDS SUMMARY | 2024-10-31 10:07 | XMS_ITS | Encounter Summary ---
Author Organization [facility] Address [address] [place] [address] Phone Care Team Providers Care Director Of Admissions Name Role Phone Artemio Park MD Primary Care Provider [phone] Bob Sanchez MD Unavailable [phone] Quincy Diego MD Unavailable Encounter Details Date Type Department Care Team (Late st Contact Info) Description 09/15/2019 Telephone [facility] Ophthalmology [facility] Health [address]th [place] [address] Swapna Bee MD [address] [facility] [address] [place] [address] Social History Tobacco Use Types Packs/Day Years Used Date Smoking Tobacco: Every Day Cigarettes Alcohol Use Standard Drinks/Week Comments Yes 6 (1 standard drink = 0.6 oz pur e alcohol) Sex and Gender Information Value Date Recorded Sex Assigned at Not on file Legal Sex Male 3:22 AM 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 We discussed that this is a condition that can lead to damage to the optic nerve, often in the setting of a metabolic stress. We discussed that there is some chance of spontaneous improvement in this condition, but that his vision will not improve to baseline and he will have some degree of permanent vision loss. We discussed that I filled out his FMLA paperwork and it was sent. We discussed that the only known treatment is idebenone, which is a nutritional supplement that he would need to order off the internet, because it is not available as a prescription medication in the [place]. He reports that he does not have computer access. He reports that he is still smoking. We discussed that tobacco smoking is a metabolic stress that can trigger the symptoms, and that quitting smoking may lead to visual improvement and will likely help prevent further worsening. He has 2 sisters that have children, and they have not had any vision issues. My plan is to try to coordinate a Low Vision appointment on the same day that he comes for a followup appointment. UNITY SERVICES MANAGER UNITY SERVICES MANAGER UNITY SERVICES MANAGER documented in this encounter Plan of Treatment Not on file documented as of this encounter Visit Diagnoses Not on filedocumented in this encounter Care Teams Director Of Admissions Relationship Specialty Start Date End Date Artemio Park MD [address] [place] [address] PCP - General Family Medicine 08/14/19 Bob Sanchez MD [address] [place] [address] Primary Eye Care Provider Ophthalmology 08/25/19 Quincy Diego MD [address] [place] [address] Consulting Physician Ophthalmology 08/25/19 documented as of this encounter
--- OUTSIDE RECORDS SUMMARY | 2024-10-31 10:07 | XMS_ITS | Encounter Summary ---
Author Organization [facility] Address [address] [place] [address] Phone Care Team Providers Care Welfare Supervisor Name Role Phone Artemio Park MD Primary Care Provider [phone] Bob Sanchez MD Unavailable [phone] Quincy Diego MD Unavailable Reason for Visit * Reason Onset Date Comments specific questions for doctor 02/09/2020 Encounter Details Date Type Department Care Team (Late st Contact Info) Description 02/09/2020 Telephone [facility] Ophthalmology [address] [place], [place] [id number] Swapna Bee MD [address] [id number] specific questions for doctor Social History Tobacco Use Types Packs/Day Years Used Date Smoking Tobacco: Every Day Cigarettes Alcohol Use Standard Drinks/Week Comments Yes 6 (1 standard drink = 0.6 oz pur e alcohol) Sex and Gender Information Value Date Recorded Sex Assigned at Not on file Legal 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 Gamaliel will not have a job by the end of February. He will nothave insurance. She wanted me to schedule him out until May. I put him on at the [facility]. * Telephone Encounter - Swapna Bee MD - 02/09/2020 3:06 PM CDT Yes, give them the option of doing a televisit. Let them know in advance that we would charge the insurance for the televisit. We can leave his original appointment on the schedule for now, and we can decide when I talk with them on the phone whether we will keep it where or it or move it later. * Telephone Encounter - Merlene Son - 02/09/2020 2:56 PM CDT Would you like me to offer Teleclinic? * Telephone Encounter - Farzad Perez - 02/09/2020 2:42 PM CDT Kiya Ba the pt's sister and POA called, she wanted the doctor to give her a call about upcoming appt for the pt. Kiya is concerned about Covid-19 but wants the doctor's advise on if she should cancel and she wants to ask other questions regarding pt's dx. Pt's vision is decreasing so Kiya would like direction. Please call Kiya at [phone] and advise. documented in this encounter Plan of Treatment Not on file documented as of this encounter Visit Diagnoses Not on filedocumented in this encounter Care Teams Welfare Supervisor Relationship Specialty Start Date End Date Artemio Park MD [address] [address] PCP - General Family Medicine 08/14/19 Bob Sanchez MD [address] [address] Primary Eye Care Provider Ophthalmology 08/25/19 Quincy Diego MD [address] [address] Consulting Physician Ophthalmology 08/25/19 documented as of this encounter
--- OUTSIDE RECORDS SUMMARY | 2024-10-31 10:07 | XMS_ITS | Encounter Summary ---
Author Organization [facility] Address [address] [place] [address] Phone Care Team Providers Care Senior Web Services Developer Name Role Phone Artemio Park MD Primary Care Provider [phone] Bob Sanchez MD Unavailable [phone] Quincy Diego MD Unavailable Encounter Details Date Type Department Care Team (Late st Contact Info) Description 06/07/2020 Documentation [facility] Ophthalmology [facility] [address]th [place] [address] Swapna Bee MD [address] [place] [address] [address] [place] [address] Social History Tobacco Use Types Packs/Day Years Used Date Smoking Tobacco: Every Day Cigarettes Alcohol Use Standard Drinks/Week Comments Yes 6 (1 standard drink = 0.6 oz pur e alcohol) Sex and Gender Information Value Date Recorded Sex Assigned at Not on file Legal Sex Male 3:22 AM CHILD AND 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 Claim number: [id number]. . documented in this encounter Plan of Treatment Not on file documented as of this encounter Visit Diagnoses Not on filedocumented in this encounter Care Teams Senior Web Services Developer Relationship Specialty Start Date End Date Artemio Park MD [address] [address] PCP - General Family Medicine 08/14/19 Bob Sanchez MD [address] [phone] Primary Eye Care Provider Ophthalmology 08/25/19 Quincy Diego MD [address] [phone] Consulting Physician Ophthalmology 08/25/19 documented as of this encounter
--- OUTSIDE RECORDS SUMMARY | 2024-10-31 10:07 | XMS_ITS | Encounter Summary ---
Author Organization [facility] Address [address] [place] [address] Phone Care Team Providers Care Mechanical Operator Name Role Phone Artemio Park MD Primary Care Provider [phone] Bob Sanchez MD Unavailable [phone] Quincy Diego MD Unavailable Reason for Referral * (Routine) - Closed Specialty Diagnoses / Procedures Referred By Contac t Referred To Contact Diagnoses Vision loss, bilateral Encounter for observation for other suspected diseases and conditions ruled out Optic neuropathy of both eyes Procedures OCT, Retina - OU - Both Eyes Swapna Bee MD Phone: tel: fax: [facility] (All Locations) Referral ID Status Reason Start Date Expiration Date Visits Re quested Visits Authorized [id number] Closed 10/06/2019 04/16/2021 1 1 E TRANSPLANT * (Routine) - Closed Specialty Diagnoses / Procedures Referred By Contac t Referred To Contact Diagnoses Vision loss, bilateral Encounter for observation for other suspected diseases and conditions ruled out Optic neuropathy of both eyes Procedures OCT, Optic Nerve - OU - Both Eyes Swapna Bee MD Phone: tel: fax: [facility] (All Locations) Referral ID Status Reason Start Date Expiration Date Visits Re quested Visits Authorized [id number] Closed 10/06/2019 04/16/2021 1 1 E TRANSPLANT * (Routine) - Closed Specialty Diagnoses / Procedures Referred By Contac t Referred To Contact Diagnoses Vision loss, bilateral Encounter for observation for other suspected diseases and conditions ruled out Optic neuropathy of both eyes Procedures Antunez Visual Field - OU - Both Eyes Swapna Bee MD Phone: tel: fax: [facility] (All Locations) Referral ID Status Reason Start Date Expiration Date Visits Re quested Visits Authorized [id number] Closed 10/06/2019 04/16/2021 1 1 E TRANSPLANT Encounter Details Date Type Department Care Team (Late st Contact Info) Description 10/06/2019 Orders Only [facility] Ophthalmology [facility] 6th [place] [address] Swapna Bee MD [address] [facility] [place], [place] [id number] Vision loss, bilateral (Primary Dx); Encounter for observation for other suspected diseases and conditions ruled out; Optic neuropathy of both eyes Social History Tobacco Use Types Packs/Day Years Used Date Smoking Tobacco: Every Day Cigarettes Alcohol Use Standard Drinks/Week Comments Yes 6 (1 standard drink = 0.6 oz pur e alcohol) Sex and Gender Information Value Date Recorded Sex Assigned at Not on file Legal Sex Male 3:22 AM NURSE TRANSPLANT Gender Identity Not on file Sexual Orientation Not on file documented as of this encounter Plan of Treatment Not on file documented as of this encounter Procedures Procedure Name Priority Date/Time Associated Diagnosis Comments OCT, OPTIC NERVE - OU - BOTH EYES Routine 10/06/2019 2:33 PM NURSE TRANSPLANT Vision loss, bilateral Encounter for observation for other suspected diseases and conditions ruled out Optic neuropathy of both eyes OCT, RETINA - OU - BOTH EYES Routine 10/06/2019 2:32 PM NURSE TRANSPLANT Vision loss, bilateral Encounter for observation for other suspected diseases and conditions ruled out Optic neuropathy of both eyes ANTUNEZ VISUAL FIELD - OU - BOTH EYES Routine 10/06/2019 2:32 PM NURSE TRANSPLANT Vision loss, bilateral Encounter for observation for other suspected diseases and conditions ruled out Optic neuropathy of both eyes documented in this encounter Results * OCT, Optic Nerve - OU - Both Eyes (10/06/2019 2:33 PM NURSE TRANSPLANT) RNFL OS 102 micrometers RNFL OD 104 micrometers Anatomical Region Laterality Modality Head Optical Coherenc e Tomography Narrative 10/06/2019 3:17 PM NURSE TRANSPLANT Right Eye Reliability was good. Temporal thickness [...] OU - Both Eyes (10/06/2019 2:32 PM NURSE TRANSPLANT) Central Macular Thickness OS 227 mircometers Central Macular Thickness OD 223 micrometers Anatomical Region Laterality Modality Head Optical Coherenc e Tomography Narrative 10/06/2019 3:17 PM NURSE TRANSPLANT Right Eye Quality was good. Progression has [...] OU - Both Eyes (10/06/2019 2:32 PM NURSE TRANSPLANT) Anatomical Region Laterality Modality Head Visual Field Narrative 10/06/2019 4:15 PM NURSE TRANSPLANT Right Eye Fixation was (Fixation monitor turned off). Progression has no prior data. Foveal threshold was (Foveal threshold turned off). Left Eye Fixation was (Fixation monitor turned off). Progression has no prior data. Foveal threshold was (Foveal threshold turned off). Notes SIZE 5 STIMULUS OU: OD: Central scotoma, 0/13 FP, 3/12 FN OS: Central scotoma, 0/16 FN, 7/14 FN Swapna Bee MD OPHTH VISUAL FIELD Final Re sult documented in this encounter Visit Diagnoses Diagnosis Vision loss, bilateral- Primary Unqualified visual loss, both eyes Encounter for observation for other suspected diseases and conditions ruled out Optic neuropathy of both eyes Other optic neuritis documented in this encounter Care Teams Mechanical Operator Relationship Specialty Start Date End Date Artemio Park MD [address] [place] [id number] PCP - General Family Medicine 08/14/19 Bob Sanchez MD [address] [place] [id number] Primary Eye Care Provider Ophthalmology 08/25/19 Quincy Diego MD [address] [place] [id number] Consulting Physician Ophthalmology 08/25/19 documented as of this encounter
--- OUTSIDE RECORDS SUMMARY | 2024-10-31 10:07 | XMS_ITS | Encounter Summary ---
Author Organization [facility] Address [address] [place] [address] Phone Care Team Providers Care Senior Telecommunications Engineer Name Role Phone Artemio Park MD Primary Care Provider [phone] Bob Sanchez MD Unavailable [phone] Quincy Diego MD Unavailable Reason for Referral * (Routine) - Closed Specialty Diagnoses / Procedures Referred By Viv farley Referred To Contact Diagnoses Vision loss, bilateral Procedures Goldmann Visual Field, Extended - OU - Both Eyes Marlene Kim MD Phone: tel: fax: [facility] (All Locations) Referral ID Status Reason Start Date Expiration Date Visits Re quested Visits Authorized [id number] Closed 08/25/2019 03/05/2021 1 1 * (Routine) - Closed Specialty Diagnoses / Procedures Referred By Contkarolina farley Referred To Contact Diagnoses Encounter for observation for other suspected diseases and conditions ruled out Vision loss, bilateral Procedures OCT, Retina - OU - Both Eyes Swapna Bee MD [address] [facility] [address] [place] [address] Phone: tel: fax: [facility] (All Locations) Referral ID Status Reason Start Date Expiration Date Visits Re quested Visits Authorized [id number] Closed 08/25/2019 03/05/2021 1 1 * (Routine) - Closed Specialty Diagnoses / Procedures Referred By Contac t Referred To Contact Diagnoses Encounter for observation for other suspected diseases and conditions ruled out Vision loss, bilateral Procedures OCT, Optic Nerve - OU - Both Eyes Swapna Bee MD [address] [facility] [address] [place] [address] Phone: tel: fax: [facility] (All Locations) Referral ID Status Reason Start Date Expiration Date Visits Re quested Visits Authorized [id number] Closed 08/25/2019 03/05/2021 1 1 Reason for Visit * Reason Comments vision loss OU Encounter Details Date Type Department Care Team (Late st Contact Info) Description 08/25/2019 1:00 PM CDT Office Visit [facility] Ophthalmology [address] 6th [place] [address] [place] [address] [place] [address] 6 [place] [address] Vision loss, bilateral (Primary Dx); Encounter for [...] on file 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 I was asked to see this patient in neuro-ophthalmology consultation by Bob Sanchez MD forevaluation of vision loss OU . History of Present Illness: Gamaliel Moscoso is a 59 y.o. male who is a current tobacco smoker with hypertension, type 2 diabeteswith mild nonproliferative retinopathy, and cataracts OU who presents for evaluation of sequential vision loss, first OD, then OS. He reports that he did not particularly notice any vision change, but instead he presented to [facility] to get new glasses because his had broken. He was then referred to Dr. Sanchez for cataractevaluation. However, over the the last 2 months (since June 2019), he has noticed decreasing vision OD. Over the past 1 month (since July 2019), he has noticed involvement OS. He describes the vision as cloudy, and reports that it seems to be involve his entired visual field, OD>OS. He describes gradual worsening of his symptoms. No eye pain. The eyes do tear sometimes. No diplopia, flashes, floaters, TVOs, pulsatile tinnitus. He has a mild headache maybe once a week that resolves without any meds. No numbness/tingling, facial droop, focal weakness, dysarthria, dysphagia, coordination problems. 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 He has been driving, but notes trouble seeing stoplights. His neighbor drove him to the to. Review of Prior Records: This is my first visit with this patient, and thus I have reviewed his relevant prior records and summarized them as follows: He reported a history of mild strabismus in childhood, for which we was told to do pencil push-ups.No surgery was required. He does not have known history of amblyopia. On 07/17/2019, he saw Dr. Bob Sanchez, tool and die maker level five at [facility], for cataract evaluation. Examination showed BCVA 20/300 OD, 20/30 OS; and mild, symmetric cataracts OU. On 07/23/2019, he saw Dr. Quincy Diego, retina specialist at [facility]. At that time, he reported blurred vision OD that was gradually worsening, with slight blur OS. Examination showed VAcc 5/200 phni, 20/40-1 phni OS; IOP 12 OD, 14 OS; normal appearance of the optic discs OU with C/D 0.2 OU; normal appearance of the macula and peripheral other than rare macular microaneurysms OU; and vitreous syneresis OU. OCT macular was reportedly normal OU. Full field ERG and multifocal ERG were performed and were reportedly normal OU. On 08/14/2019, he saw Dr. Sanchez in follow-up. Examination showed BCVA 20/400 OD, 20/200 OS; equal pupils without RAPD; IOP 12 OD, 11 OS by Tonopen; 1-2+ nuclear sclerosis OU; normal appearance of theoptic nerve with C/D 0.2 OD, 0.15 OS; and normal macula and peripheral examination OU. HVF 30-2 reportedly showed a paracentral/central and peripheral defect with sparing of the mid-peripheral field with MD -14.67 dB (but was poorly reliable) OD, non-specific peripheral changes with MD -6.85 dB OS. MRI brain and orbits without and with contrast was ordered. Neuro-ophthalmology consultation was requested. On 08/20/2019, MRI brain and orbits without and with contrast showed old lacunar basal ganglia infarcts, mild white matter disease, and possible left mastoiditis. Review of Prior Labs/Testing/Imaging: I have independently reviewed his relevant prior imaging, and summarized my findings as follows: MRI brain and orbits without and with contrast (08/20/2019): Marked atrophy with dilation of the ventricles and associated sulcal enlargement. Old lacunar basal ganglia infarcts, mild white matter disease, and possible left mastoiditis. Current Medical Problems Patient Active Problem List Diagnosis ??? Essential hypertension ??? Type 2 diabetes mellitus, with long-term current use of insulin (CMS/HCC) ??? Cataracts, both eyes ??? 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 Presbyopia of both eyes ??? Optic neuropathy of both eyes Past Medical History Past Medical History: Diagnosis Date ??? Cataracts, both eyes ??? Essential hypertension 08/25/2019 ??? 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 Pancreatitis 08/25/2019 ??? Presbyopia of both eyes ??? Strabismus ??? Type 2 diabetes mellitus, with long-term current use of insulin (CMS/HCC) 08/25/2019 Past Surgical History No past surgical history on file. Medications HOME MEDICATIONS : insulin lispro (HumaLOG) 100 unit/mL injection lisinopril (PRINIVIL,ZESTRIL) 20 mg tablet HYDROcodone-acetaminophen (NORCO) 7.5-325 mg per tablet Allergies No Known Allergies Family History No family history on file. No family history of vision loss. He has 3 maternal uncles, none of whom had vision loss that he knows of. Social History Social History Tobacco Use Smoking Status Current Every Day Smoker ??? Packs/day: 0.00 ??? Years: 1.00 ??? Pack years: 0.00 ??? Types: Cigarettes Social History Substance and Sexual Activity Alcohol Use Yes ??? Alcohol/week: 6.0 standard drinks ??? Types: 6 Cans of beer per week Social History Substance and Sexual Activity Drug Use Not on file Review of Systems: A complete, 14-system review of systems was reviewed and is scanned. ROS Positive for: HENT, Eyes Negative for: Constitutional, Gastrointestinal, Neurological, Skin, Genitourinary, Musculoskeletal,Endocrine, Cardiovascular, Respiratory, Psychiatric, Allergic/Imm, Heme/Lymph Last edited by Marlene Kim MD on 08/25/2019 1:36 PM. (History) Physical Exam Base Eye Exam Visual Acuity (Snellen - Linear) Right Left Dist cc 6/200 20/200 Dist ph cc NI NI Correction: Glasses Bottom up testing Tonometry (Applanation, 2:02 PM) Right Left Pressure 14 14 Pupils Dark Light Shape React APD Right 5 3 Round Slow Trace Left 5 3 Round Slow None Visual Romero Left Right Full Full Extraocular Movement Right Left Full, Ortho Full, Ortho Neuro/Psych Oriented x3: Yes Mood/Affect: Normal No significant simultanagnosia on cookie thief. Normal clock drawing. CN V and VII intact. Dilation Both eyes: 1.0% Mydriacyl, 2.5% Phenylephrine @ 2:20 PM Additional Tests Color Right Left Ishihara 0/11 1.5/11 Stereo Fly: - Animals: 0/3 Circles: 0/9 [place] 4 Dot Distance: 3 yellow lights Near: 3 yellow lights Strabismus Exam Method: Alternate cover Observations: Ortho Distance Near Near +3DS N Bifocals Slit Lamp and Fundus Exam External Exam Right Left External Normal Normal Slit Lamp Exam Right Left Lids/Lashes Normal Normal Conjunctiva/Sclera White and quiet White and quiet Cornea Clear Clear Anterior Chamber Deep and quiet Deep and quiet Iris Round and reactive Round and reactive Lens 1-2+ NS 1-2+ NS Vitreous Syneresis, no cell Syneresis, no cell Fundus Exam Right Left Disc Normal, no obvious pallor or edema Mildly hyperemic compared to OD, no obvious edema C/D Ratio 0.25 0.2 Macula Normal Normal Vessels Normal Normal Periphery Normal Normal Testing OCT, Optic Nerve - OU - Both Eyes Component Value Flag Ref Range Units Status RNFL OS 105 micrometers Final RNFL OD 118 micrometers Final Right Eye Reliability was good. Average RNFL thickness 118 micrometers. Left Eye Reliability was good. Average RNFL thickness 105 micrometers. Notes Mild thickening of rNFL OD>OS. Linked Images OCT, Retina - OU - Both Eyes Component Value Flag Ref Range Units Status Central Macular Thickness OS 237 micrometers Final Central Macular Thickness OD 227 micrometers Final Right Eye Quality was good. Scan locations included subfoveal. Macular thickness was 227 micrometers. Left Eye Quality was good. Scan locations included subfoveal. Macular thickness was 237 micrometers. Notes Mild ERM OU but normal foveal contour. No central macular thinning OU, but mild parafoveal thinningOD. GCL thinning OD. GCL OD = 64 GCL OS = 74 Goldmann Visual Field, Extended - OU - Both Eyes Right Eye Fixation was good. Cooperation was good. Reliability was good. Isopters were I4e, V4e, III4e. Left Eye Fixation was good. Cooperation was good. Reliability was good. Isopters were I4e, III4e, V4e. Notes Mild superior and nasal constriction OU. No central/paracentral scotoma OU. Linked Images Assessment/Plan Diagnoses and all orders for this visit: Vision loss, bilateral (Primary) - OCT, Optic Nerve - OU - Both Eyes - OCT, Retina - OU - Both Eyes - Goldmann Visual Field, Extended - OU - Both Eyes - Myelin Oligodendrocyte Glycoprotein (MOG-IgG1) Fluorescence-Activated Cell Sorting (FACS); Future - NMO (neuromyelitis optica) IgG, serum; Future - CBC without differential; Future - Folate; Future - CRP (acute phase); Future - Erythrocyte sedimentation rate; Future - Vitamin B1; Future - Vitamin B12; Future - Methylmalonic acid, serum; Future - Copper, serum; Future - HIV 1/2 Antibody plus p24 Antigen; Future - RPR; Future - Treponemal IgG/IgM Blood; Future - Julissa hereditary optic neuropathy (LHON) mtDNA Evaluation, test code 515 - Miscellaneous Test; Future Encounter for observation for other suspected diseases and conditions ruled out - OCT, Optic Nerve - OU - Both Eyes - OCT, Retina - OU - Both Eyes Optic neuropathy of both eyes Assessment & Plan: This is a 59-year-old male with diabetes, [...] the right optic nerve), but was otherwise unre markable. Given the absence of compressive or infiltrative process on his imaging, the differential for his progressive bilateral vision loss includes nutritional optic neuropathies, infectious etiologies likesyphilis, and Julissa's hereditary optic neuropathy. Would consider MOG and NMO as less likely etiologies. Although functional overlay cannot be ruled out, he does have an afferent pupillary defect andganglion cell thinning on the right, which is [...] benefit from referral for low vision evaluation. Orders: - Myelin Oligodendrocyte Glycoprotein (MOG-IgG1) Fluorescence-Activated Cell Sorting (FACS); Future - NMO (neuromyelitis optica) IgG, serum; Future - CBC without differential; Future - Folate; Future - CRP (acute phase); Future - Erythrocyte sedimentation rate; Future - Vitamin B1; Future - Vitamin B12; Future - Methylmalonic acid, serum; Future - Copper, serum; Future - HIV 1/2 Antibody plus p24 Antigen; Future - RPR; Future - Treponemal IgG/IgM Blood; Future - Julissa hereditary optic neuropathy (LHON) mtDNA Evaluation, test code 515 - Miscellaneous Test; Future He was counseled that with his current level of vision loss (based on his visual acuity), he currently does not meet the legal requirements for driving in the state of [place] or the [facility]. He was also counseled that some of the etiologies we are investigating can be made worse by tobaccosmoking, so he was urged not to smoke. I will obtain his laboratory testing results and then schedule a follow up visit. I was present with the resident during the history and exam. I discussed this patient with the resident and agree with the findings and plan as documented in the their note. I have made corrections and additions as appropriate. Swapna Bee MD Record Filing Clerk Department of Ophthalmology and Visual Sciences Department of Neurology [facility] in [facility] documented in this encounter Miscellaneous Notes * Assessment & Plan Note - Marlene Kim MD - 08/25/2019 4:18 PM CDT Associated Problem(s): Optic neuropathy of both eyes This is a 59-year-old male with diabetes, [...] from 20/300 OD and 20/30 OS on 9/6/19 to 20/400 OD and 20/200 OS on [...] the right optic nerve), but was otherwise unre markable. Given the absence of compressive or infiltrative process on his imaging, the differential for his progressive bilateral vision loss includes nutritional optic neuropathies, infectious etiologies likesyphilis, and Julissa's hereditary optic neuropathy. Would consider MOG and NMO as less likely etiologies. Although functional overlay cannot be ruled out, he does have an afferent pupillary defect andganglion cell thinning on the right, which is [...] benefit from referral for low vision evaluation. documented in this encounter Plan of Treatment Not on file documented as of this encounter Procedures Procedure Name Priority Date/Time Associated Diagnosis Comments GOLDMANN VISUAL FIELD, EXTENDED - OU - BOTH EYES Routine 08/25/2019 4:12 PM CDT Vision loss, bilateral OCT, OPTIC NERVE - OU - BOTH EYES Routine 08/25/2019 2:33 PM CDT Encounter for observation for other suspected diseases and conditions ruled out Vision loss, bilateral OCT, RETINA - OU - BOTH EYES Routine 08/25/2019 2:33 PM CDT Encounter for observation for other suspected diseases and conditions ruled out Vision loss, bilateral documented in this encounter Results * Treponemal IgG/IgM Blood (08/25/2019 4:20 PM CDT) Pathologist [facility] Treponemal IgG/IgM Nonreactive Nonreactive [facility] Comment: Interpretive Data: If test is reported as EQUIVOCAL, a new sample should be drawn in two weeks for testing. Current interpretive data was last revised on 2019. Blood specimen (specimen) 08/25/2019 4:20 PM CDT 08/25/2019 5:17 PM CDT us Swapna Bee MD LAB MICROBIOLOGY - GENERAL ORDERABLES Final Result Performing Organization Address [facility] de Phone Number [address] [address] * RPR (08/25/2019 4:20 PM CDT) Pathologist [facility] RPR Nonreactive Nonreactive [facility] Blood specimen (specimen) 08/25/2019 4:20 PM CDT 08/25/2019 5:17 PM CDT us Swapna Bee MD LAB MICROBIOLOGY - GENERAL ORDERABLES Final Result Performing Organization Address [facility] de Phone Number [address] [address] * HIV 1/2 Antibody plus p24 Antigen (08/25/2019 4:20 PM CDT) Pathologist [facility] HIV 1/2 ab + p24 ag Nonreactive Nonreactive [facility] Comment: Nonreactive for HIV-1 antigen and HIV-1/HIV-2 antibodies. No laboratory evidence of HIV infection. If acute HIV infection is suspected, consider testing for HIV-1 RNA. Blood specimen (specimen) 08/25/2019 4:20 PM CDT 08/25/2019 5:17 PM CDT us Swapna Bee MD LAB MICROBIOLOGY - GENERAL ORDERABLES Final Result Performing Organization Address [facility] de Phone Number AMANDA [address] [place] [address] * Copper, serum (08/25/2019 4:20 PM CDT) Copper 0.97 0.75 - 1.45 mcg/mL [facility] Comment: ADDITIONAL INFORMATION This test was developed and its performance characteristics determined by [facility] in a manner consistent with CLIA requirements. This test has not been cleared or approved by the U.S. Food and Drug Administration. Test Performed by: [place] [address] [employer]: Shant Doll M.D. Ph.D.; CLIA# [id number] Blood specimen (specimen) 08/25/2019 4:20 PM CDT 08/25/2019 5:26 PM CDT us Swapna Bee MD LAB BLOOD ORDERABLES Final Result Performing Organization Address [facility] de Phone Number AM[address]DA [address] [address] * Methylmalonic acid, serum (08/25/2019 4:20 PM CDT) MMA 0.10 <=0.40 nmol/mL [facility] Comment: ADDITIONAL INFORMATION This test was developed and its performance characteristics determined by [facility] in a manner consistent with CLIA requirements. This test has not been cleared or approved by the U.S. Food and Drug Administration. Test Performed by: [facility] [address] [place] [address] [employer]: Shant Doll M.D. Ph.D.; CLIA# [id number] Blood specimen (specimen) 08/25/2019 4:20 PM CDT 08/25/2019 5:31 PM CDT us Swapna Bee MD LAB BLOOD ORDERABLES Final Result Performing Organization Address [facility] de Phone Number [address] [address] * Vitamin B12 (08/25/2019 4:20 PM CDT) Pathologist [facility] Vitamin B12 940 230 - 1,250 pg/mL [facility] Blood specimen (specimen) 08/25/2019 4:20 PM CDT 08/25/2019 5:17 PM CDT us Swapna Bee MD LAB BLOOD ORDERABLES Final Result Performing Organization Address [facility] de Phone Number [address] [address] * Vitamin B1 (08/25/2019 4:20 PM CDT) [facility] Thiamine (Vit B1) 173 70 - 180 nmol/L [facility] Comment: ADDITIONAL INFORMATION This test was developed and its performance characteristics determined by [facility] in a manner consistent with CLIA requirements. This test has not been cleared or approved by the U.S. Food and Drug Administration. Test Performed by: [facility] [address] [place] [address] [employer]: Shant Doll M.D. Ph.D.; CLIA# [id number] Blood specimen (specimen) 08/25/2019 4:20 PM CDT 08/25/2019 6:01 PM CDT us Swapna Bee MD LAB BLOOD ORDERABLES Final Result Performing Organization Address [facility]/ZIP Co de Phone Number [address] [address] * Erythrocyte sedimentation rate (08/25/2019 4:20 PM CDT) Erythrocyte sedimentation rate 8 1 - 20 mm/hr [facility] Blood specimen (specimen) 08/25/2019 4:20 PM CDT 08/25/2019 5:17 PM CDT us Swapna Bee MD LAB BLOOD ORDERABLES Final Result Performing Organization Address [facility] Co de Phone Number [address] [address] * CRP (acute phase) (08/25/2019 4:20 PM CDT) Pathologist [facility] CRP 3.3 <=10.0 mg/L [facility] Blood specimen (specimen) 08/25/2019 4:20 PM CDT 08/25/2019 5:17 PM CDT us Swapna Bee MD LAB BLOOD ORDERABLES Final Result Performing Organization Address [facility] Co de Phone Number [address] [address] * Folate (08/25/2019 4:20 PM CDT) Folic acid 17.7 >=5.0 ng/mL [facility] Blood specimen (specimen) 08/25/2019 4:20 PM CDT 08/25/2019 5:17 PM CDT us Swapna Bee MD LAB BLOOD ORDERABLES Final Result Performing Organization Address [facility] Co de Phone Number [address] [phone] * (ABNORMAL) CBC without differential (08/25/2019 4:20 PM CDT) [facility] WBC 9.4 3.8 - 9.9 K/cumm [facility] Hgb 14.5 13.0 - 17.5 g/dL [facility] Hct 43.8 38.9 - 50.3 % [facility] Plt 292 150 - 400 K/cumm [facility] MPV 10.7 9.1 - 12.3 fL [facility] RBC 4.52 4.30 - 5.80 M/cumm [facility] MCV 96.9(H) 81.3 - 96.4 fL [facility] MCH 32.1 27.1 - 33.3 pg [facility] MCHC 33.1 32.3 - 35.7 g/dL [facility] RDW CV 12.9 11.1 - 14.9 % [facility] RDW SD 46.0 35.7 - 48.1 fL [facility] NRBC abs 0.00 0.00 - 0.01 K/cumm [facility] Blood specimen (specimen) 08/25/2019 4:20 PM CDT 08/25/2019 5:17 PM CDT Swapna Bee MD LAB BLOOD ORDERABLES Final Result [facility] [address] [place] [address] * NMO (neuromyelitis optica) IgG, serum (08/25/2019 4:20 PM CDT) [facility] NMO/AQP4 IgG ser Negative Negative [facility] Comment: Recommend repeat testing in 6 months if clinical suspicion is high. Negative result can occur in the setting of immunosuppression. ADDITIONAL INFORMATION This test was developed and its performance characteristics determined by [facility] in a manner consistent with CLIA requirements. This test has not been cleared or approved by the U.S. Food and Drug Administration. Test Performed by: [address] [address] [employer]: Shant Doll M.D. Ph.D.; CLIA# [id number] Blood specimen (specimen) 08/25/2019 4:20 PM CDT 08/25/2019 6:02 PM CDT us Swapna Bee MD LAB BLOOD ORDERABLES Final Result Performing Organization Address [facility] Co de Phone Number AMANDA [address] [address] * Myelin Oligodendrocyte Glycoprotein (MOG-IgG1) Fluorescence-Activated Cell Sorting (FACS) (08/25/2019 4:20 PM CDT) Pathologist [facility] MOG IgG ser Negative Negative [facility] Comment: No informative autoantibodies were detected in this evaluation. A negative result does not preclude a diagnosis of an inflammatory CIVIL ENGINEER'S AIDE demyelinating disorder. ADDITIONAL INFORMATION This test was developed and its performance characteristics determined by [facility] in a manner consistent with CLIA requirements. This test has not been cleared or approved by the U.S. Food and Drug Administration. Test Performed by: [place] [id number] [employer]: Shant Doll M.D. Ph.D.; CLIA# [id number] Blood specimen (specimen) 08/25/2019 4:20 PM CDT 08/25/2019 5:51 PM CDT us Swapna Bee MD LAB BLOOD ORDERABLES Final Result Performing Organization Address [facility] Co de Phone Number AMANDA [address] [place] [address] * Goldmann Visual Field, Extended - OU - Both Eyes (08/25/2019 4:12 PM CDT) Anatomical Region Laterality Modality Head Visual Field Narrative 08/25/2019 4:15 PM CDT Right Eye Fixation was good. Cooperation was good. Reliability was good. Isopters were I4e, V4e, III4e. Left Eye Fixation was good. Cooperation was good. Reliability was good. Isopters were I4e, III4e, V4e. Notes Mild superior and nasal constriction OU. No central/paracentral scotoma OU. us Marlene Kim MD OPH VISUAL FIELD Final Re sult * OCT, Optic Nerve - OU - Both Eyes (08/25/2019 2:33 PM CDT) RNFL OS 105 micrometers RNFL OD 118 micrometers Anatomical Region Laterality Modality Head Optical Coherenc e Tomography Narrative 08/25/2019 4:14 PM CDT Right Eye Reliability was good. Average RNFL thickness 118 micrometers. Left Eye Reliability was good. Average RNFL thickness 105 micrometers. Notes Mild thickening of rNFL OD>OS. us Swapna Bee MD OPHTH TOMOGRAPHY Final Resu lt * OCT, Retina - OU - Both Eyes (08/25/2019 2:33 PM CDT) Central Macular Thickness OS 237 micrometers Central Macular Thickness OD 227 micrometers Anatomical Region Laterality Modality Head Optical Coherenc e Tomography Narrative 08/25/2019 4:14 PM CDT Right Eye Quality was good. Scan locations included subfoveal. Macular thickness was 227 micrometers. Left Eye Quality was good. Scan locations included subfoveal. Macular thickness was 237 micrometers. Notes Mild ERM OU but normal foveal contour. No central macular thinning OU, but mild parafoveal thinning OD. GCL thinning OD. GCL OD = 64 GCL OS = 74 us Swapna Bee MD OPHTH TOMOGRAPHY Final Resu lt documented in this encounter Visit Diagnoses Diagnosis Vision loss, bilateral- Primary Unqualified visual loss, both eyes Encounter for observation for other suspected diseases and conditions ruled out Optic neuropathy of both eyes Other optic neuritis documented in this encounter Historical Medications * This list may reflect changes made after this encounter. HYDROcodone-aceta minophen (NORCO) 7.5-325 mg per tablet TK 1 T PO Q 6 H PRF PAIN 0 08/20/2019 insulin lispro (HumaLOG) 100 unit/mL injection Inject 4-5 Units under the skin 3 (three) times a day before meals lisinopril (PRINIVIL,ZESTRIL ) 20 mg tablet Take 20 mg by mouth daily added in this encounter Eye Exam Visual Acuity (Snellen - Linear) Right eye Left eye Dist cc 6/200 20/200 Dist ph cc NI NI Correction: Glasses Bottom up testing Tonometry (Applanation, 2:02 PM) Right eye Left eye Pressure 14 14 Pupils Dark Light Shape React APD Right eye 5 3 Round Slow Trace Left eye 5 3 Round Slow None Visual Romero Right eye Left eye Full Full Extraocular Movement Right eye Left eye Full, Ortho Full, Ortho Neuro/Psych Oriented x3: Yes Mood/Affect: Normal No significant simultanagnosia on cookie thief. Normal clock drawing. CN V and VII intact. Dilation Both eyes: 1.0% Mydriacyl, 2 .5% Phenylephrine @ 2:20 PM Color Right eye Left eye Ishihara 0/11 1.5/11 Stereo Fly: - Animals: 0/3 Circles: 0/9 [place] 4 Dot Distance: 3 yellow lights Near: 3 yellow lights External Exam Right eye Left eye External Normal Normal Slit Lamp Exam Right eye Left eye Lids/Lashes Normal Normal Conjunctiva/Sclera White and quiet White and guanaco et Cornea Clear Clear Anterior Chamber Deep and quiet Deep and quiet Iris Round and reactive Round and vin ctive Lens 1-2+ NS 1-2+ NS Vitreous Syneresis, no cell Syneresis, no cell Fundus Exam Right eye Left eye Disc Normal, no obvious pallor or gelacio ma Mildly hyperemic compared to OD, no obvious edema C/D Ratio 0.25 0.2 Macula Normal Normal Vessels Normal Normal Periphery Normal Normal Strabismus Exam Method: Alternate cover Observations: Ortho Care Teams Senior Telecommunications Engineer Relationship Specialty Start Date End Date Artemio Park MD [address] [place] [phone] PCP - General Family Medicine 08/14/19 Bob Sanchez MD [address] [id number] Primary Eye Care Provider Ophthalmology 08/25/19 Quincy Diego MD [address] [address] Consulting Physician Ophthalmology 08/25/19 documented as of this encounter
--- OUTSIDE RECORDS SUMMARY | 2024-10-31 10:07 | XMS_ITS | Encounter Summary ---
Author Organization [facility] Address [address] [place] [address] Phone Care Team Providers Care Mortuary Technician Name Role Phone Artemio Park MD Primary Care Provider [phone] Bob Sanchez MD Unavailable Quincy Diego MD Unavailable Encounter Details Date Type Department Care Team (Late st Contact Info) Description 10/06/2019 1:30 PM SCHOOL BUS DRIVER Office Visit [facility] Ophthal[facility] 6th [place] [id number] Swapna Bee MD [address] [place] [address] [address] [place], [place] [id number] Julissa hereditary optic neuropathy (Primary Dx); Optic [...] on file Legal Sex Male 3:22 AM SCHOOL BUS DRIVER Gender Identity Not on file Sexual Orientation Not on file documented as of this encounter Patient Instructions * Patient Instructions* Swapna Bee MD - 10/06/2019 1:30 PM SCHOOL BUS DRIVER Dilation instructions Please refer to your Dilating Eyedrops brochure for instructions regarding dilation. OL BUS DRIVER documented in this encounter Ordered Prescriptions Prescription Sig Dispense Quantity Refills Last Filled Start Date End Date coQ10, ubiquinol, 100 mg capsuleIndications :Julissa's Hereditary Optic Atrophy Take 1 capsule by mouth daily 30 capsule 11 10/06/2019 documented in this encounter Progress Notes * Swapna Bee MD - 10/06/2019 1:30 PM CST Images from the original note were not included. Gamaliel Moscoso is a 59 y.o. 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 Interval History: He was last seen in the neuro-ophthalmology clinic on 08/25/2019. He presents today accompanied by his sister, who was able to add that a maternal uncle had gone blind at a young age (she remembers that he had been blind and he had in his 50s). He reports continued progression of his vision loss OU. He continues to smoke, despite being counseled not to smoke as it may worsen his optic neuropathiesboth as his initial visit on 08/25/2019 and via phone on 09/15/2019 when I spoke with him about his genetic test results. On 09/15/2019, we had spoken on the phone about idebenone, but he stated that he did not have computer access to order it. He states that he was informed of a medication to order online but he does not have a computer and doesn't know how to do that. He is not driving as he had been told not to drive due to his vision loss as his previous appointment on 08/25/2019. He is currently using a pocket magnifying glass for reading, with moderate success. Summary of Clinical Course: Allow me to summarize his clinical course for my records. - June 2019: Painless vision change OD, that progressed. - July 2019: Painless vision change OS, that progressed. - 08/20/2019: MRI brain and orbits without and with contrast showed old lacunar basal ganglia infarcts, mild white matter disease, and possible left mastoiditis. - 08/25/2019: Initial neuro-ophthalmology visit. Examination showed VAcc 6/200 phni OD, 20/200 phniOS; 0/11 color plates OD, 1.5/11 color plates OS; a trace RAPD OD; and normal appearance of the optic discs other than mild hyperemia OD. OCT showed RNFL elevation OU (105 microns OD, 118 microns OS), and mild parafoveal ganglion cell complex thinning OD. Review of Interval Labs/Testing/Imaging: I have independently reviewed his relevant interval laboratory tests, and summarized my findings asfollows: Julissa hereditary optic neuropathy genetic test (08/25/2019): Positive for MT- ND4/LHON mutation m.75191H>A; [id number] mutation. Lab Results Component Value Date VITB1 173 08/25/2019 VITB12 940 08/25/2019 MTHMLNC 0.10 08/25/2019 FOLATE 17.7 08/25/2019 COPPERSER 0.97 08/25/2019 [id number] Nonreactive 08/25/2019 LABRPR Nonreactive 08/25/2019 TREPONEMA Nonreactive 08/25/2019 Lab Results Component Value Date LABPLAT 292 08/25/2019 SEDRATE 8 08/25/2019 CRP 3.3 08/25/2019 Lab Results Component Value Date NMOAQPRIGG Negative 08/25/2019 MOGFACS Negative 08/25/2019 Current Medical Problems Patient Active Problem List Diagnosis ??? Essential hypertension ??? Type 2 diabetes mellitus, with long-term current use of insulin (CMS/HCC) ??? Cataracts, both eyes ??? 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 Presbyopia of both eyes ??? Optic neuropathy of both eyes ? ? Julissa hereditary optic neuropathy (m.01531 G>A, tested 08/25/2019) ??? 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 Tobacco abuse disorder Past Medical History Past Medical History: Diagnosis Date ??? Cataracts, both eyes ??? Essential hypertension 08/25/2019 ? ? Julissa hereditary optic neuropathy (m.46797 G>A, tested 08/25/2019) 10/06/2019 ??? 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 Nonproliferative diabetic retinopathy with macular edema associated with type 2 diabetes mellitus ([facility]/HCC) ??? Pancreatitis 08/25/2019 ??? Presbyopia of both eyes ??? Strabismus ??? Type 2 diabetes mellitus, with long-term current use of insulin ([facility]) 08/25/2019 Past Surgical History History reviewed. No pertinent surgical history. Medications Current Outpatient Medications on File Prior to Visit Medication Sig Dispense Refill ??? HYDROcodone-acetaminophen (NORCO) 7.5-325 mg per tablet TK 1 T PO Q 6 H PRF PAIN 0 ??? insulin lispro (HumaLOG) 100 unit/mL injection Inject 4-5 Units under the skin 3 (three) times a day before meals ??? lisinopril (PRINIVIL,ZESTRIL) 20 mg tablet Take 20 mg by mouth daily No current facility-administered medications on file prior to visit. Allergies No Known Allergies Family History Family History Problem Relation Age of Onset ??? Blindness Mother's Brother Social History Social History Tobacco Use Smoking [...] and is scanned. ROS Positive for: HENT, Endocrine ( dmii), Cardiovascular ( HTN), Eyes ( LHON) Negative for: Constitutional, Gastrointestinal, Neurological, Skin, Genitourinary, Musculoskeletal,Respiratory, Psychiatric, Allergic/Imm, Heme/Lymph Last edited by Lilly Goodwin on 10/06/2019 2:40 PM. (History) Physical Exam Base Eye Exam Visual Acuity (Snellen - Linear) Right Left Dist cc 5/200 6/200 Tonometry (Tonopen, 2:52 PM) Right Left Pressure 13 13 Pupils Dark Light Shape React APD Right 5 4 Round Brisk Trace Left 5 4 Round Brisk None Visual Romero (Counting fingers) Left Right Full Full Extraocular Movement Right Left Full Full Neuro/Psych Oriented x3: Yes Mood/Affect: Normal Dilation Both eyes: 2.5% Phenylephrine, 1.0% Mydriacyl @ 2:53 PM Additional Tests Color Right Left Ishihara no CP NO CP Cranial Nerves CN V Right Left Overall Normal Normal CN IX-X Right Left Overall Normal Normal CN VII Right Left Overall Normal Normal CN XI Right Left Overall Normal Normal CN VIII Right Left Overall Normal Normal CN XII Right Left Overall Normal Normal Slit Lamp and Fundus Exam External Exam [...] or edema Mildly hyperemic compared to OD, with superior telangiectasias C/D Ratio 0.25 0.2 Macula Normal Normal Vessels Normal Normal Periphery Normal Normal Testing Antunez Visual Field - OU - Both Eyes Right Eye Fixation was (Fixation monitor turned off). Progression has no prior data. Foveal threshold was (Foveal threshold turned off). Left Eye Fixation was (Fixation monitor turned off). Progression has no prior data. Foveal threshold was (Foveal threshold turned off). Notes SIZE 5 STIMULUS OU: OD: Central scotoma, 0/13 FP, 3/12 FN OS: Central scotoma, 0/16 FN, 7/14 FN Linked Images OCT, Optic Nerve - OU - Both Eyes Component Value Flag Ref Range Units Status RNFL OS 102 micrometers Final RNFL OD 104 micrometers Final Right Eye Reliability was good. [...] micrometers. Notes Normal mean RNFL thickness OU Linked Images OCT, Retina - OU - Both Eyes Component Value Flag Ref Range Units Status Central Macular Thickness OS 227 mircometers Final Central Macular Thickness OD 223 micrometers Final Right Eye Quality was good. Progression has no prior data. Findings include normal observations. Macular thickness was 223 micrometers. Left Eye Quality was good. Progression has no prior data. Findings include normal observations. Macular thickness was 227 mircometers. Notes Diffuse ganglion cell complex thinning OU: 56 microns OD, 64 microns OS Assessment/Plan Diagnoses and all orders for this visit: Julissa hereditary optic neuropathy (Primary) - coQ10, ubiquinol, 100 mg capsule; Take 1 capsule by mouth daily Optic neuropathy of both eyes Legally blind Tobacco abuse disorder This is a 59-year-old man with family history of blindness in a maternal uncle, who is a current tobacco smoker, who was recently diagnosed with Julissa hereditary optic neuropathy (89123 G>A mutation). He has tested positive for the 32421 G>A mutation, which is a pathogenic mitochondrial DNA mutation associated with LHON. His examination today is consistent with vision loss OU due to LHON, with central scotomas OU and normal appearance of the optic discs OU other than mild hyperemia OS. Since his last appointment, he has developed diffuse ganglion cell complex thinning, consistent with his profound vision loss. I had a long discussed with the patient and his sister. We discussed the nature of Julissa hereditaryoptic neuropathy, including that it is a mitochondrial disease which is maternally-inherited, and that it can cause irreversible optic nerve damage, often precipitated by a metabolic stressor. We discussed tobacco and alcohol as specific metabolic stressors that may worsen the optic nerve damage. He was again specifically counseled not to smoke. We discussed that in some cases, there is spontaneous improvement, but not back to the prior visual baseline. He was also provided with the [place] [employer] Society (NANOS) patient information packet about hereditary optic neuropathies. I also directed him to the LHON Society website (lhonsociety.org) as an additional source of information. We discussed that there is no cure for LHON. We discussed that the only treatment that has been shown to have some efficacy is idebenone, a dietary supplement that is not currently available to prescribe in the [place], and must be ordered online (for example, at [employer] ([employer])). He is not currently interested because he does not have computer access and because of cost. When asked for alternative medications, we discussed coenzyme Q10, which is a supplement that has similar properties to idebenone. Coenzyme Q10 has also been tested for LHON, but has not been shown to have clear efficacy (Jason et al. Muscle Nerve. 2010;42:739-748. Kyler et al. Neurotherapeutics. 2013;10(2):307- 19.) Doses in published reports have ranged from 90 mg daily (Desean et al., [facility] J Med Sci. 2003;19:516-21. Simon et al. J Neuroophthalmol. 2002;22(1):66.) to 1200 mg daily (Colten et al. Mitochrondrion. 2012;12:623- 629.) He understands this, and he is interested in trying the supplement. I have ordered 100 mg daily. I counseled him that I would also advise an EKG to screen for cardiac involvement. He has an appointment with his primary care provider next month. Based on his visual function today, he currently meets the criteria for legal blindness OU. He is not legal to drive in the states of [place] or [place] based on his currently level of vision loss. 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 He states that he has paper work for [employer] that he is needing assistance with, but the papers he brought today are papers that were sent to update him on the process, not something we can fill out. We will work with him on getting the paperwork completed. I will refer him to Low Vision services for help with making the best use out of the vision that hehas. He will follow up in the neuro-ophthalmology clinic in 3 months. Summary of Plan: - Low Vision referral. - Quit smoking. - Coenzyme Q10 supplementation, or idebenone if he becomes interested. - Would recommended EKG screening at primary care appointment. - Neuro-ophthalmology follow-up in 3 months. Swapna Bee MD Woods Manager Department of Ophthalmology and Visual Sciences Department of Neurology [facility] OL BUS DRIVER documented in this encounter Plan of Treatment Not on file documented as of this encounter Visit Diagnoses Diagnosis Julissa hereditary optic neuropathy- Primary Hereditary optic atrophy Optic neuropathy of both eyes Other optic neuritis Legally blind Tobacco abuse disorder documented in this encounter Eye Exam Visual Acuity (Snellen - Linear) Right eye Left eye Dist cc 5/200 6/200 Tonometry (Tonopen, 2:52 PM) Right eye Left eye Pressure 13 13 Pupils Dark Light Shape React APD Right eye 5 4 Round Brisk Trace Left eye 5 4 Round Brisk None Visual Romero (Counting fingers) Right eye Left eye Full Full Extraocular Movement Right eye Left eye Full Full Neuro/Psych Oriented x3: Yes Mood/Affect: Normal Dilation Both eyes: 2.5% Phenylephrin e, 1.0% Mydriacyl @ 2:53 PM Color Right eye Left eye Ishihara no CP NO CP CN V Right eye Left eye Overall Normal Normal CN VII Right eye Left eye Overall Normal Normal CN VIII Right eye Left eye Overall Normal Normal CN IX-X Right eye Left eye Overall Normal Normal CN XI Right eye Left eye Overall Normal Normal CN XII Right eye Left eye Overall Normal Normal External Exam Right eye Left eye External [...] gelacio ma Mildly hyperemic compared to OD, with superior telangiectasias C/D Ratio 0.25 0.2 Macula Normal Normal Vessels Normal Normal Periphery Normal Normal Care Teams Mortuary Technician Relationship Specialty Start Date End Date Artemio Park MD [address] [place] [phone] PCP - General Family Medicine 08/14/19 Bob Sanchez MD [address] [address] Primary Eye Care Provider Ophthalmology 08/25/19 Quincy Diego MD [address] [place] [phone] Consulting Physician Ophthalmology 08/25/19 documented as of this encounter
--- OUTSIDE RECORDS SUMMARY | 2024-10-31 10:07 | XMS_ITS | Encounter Summary ---
Author Organization [facility] Address [address] [place] [address] Phone Care Team Providers Care E Learning Manager Name Role Phone Artemio Park MD Primary Care Provider [phone] Bob Sanchez MD Unavailable [phone] Quincy Diego MD Unavailable Encounter Details Date Type Department Care Team (Late st Contact Info) Description 12/30/2019 Telephone [facility] Ophthalmology [address] [place], [place] [id number] Swapna Bee MD [address] [facility] [place], [place] [id number] Social History Tobacco Use Types Packs/Day Years Used Date Smoking Tobacco: Every Day Cigarettes Alcohol Use Standard Drinks/Week Comments Yes 6 (1 standard drink = 0.6 oz pur e alcohol) Sex and Gender Information Value Date Recorded Sex Assigned at Not on file Legal Sex Male 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 She confirmed that [employer] did get our fax and Gamaliel received notification that his FMLA was extended. NICAL REPORT WRITER * Telephone Encounter - Nunu Ornelas COA - 12/30/2019 12:08 PM TECHNICAL REPORT WRITER Pt sister Kiya called , needs to speak to someone today today about pt FMLA paperwork that has notbeen sent back to [employer] and patient is not getting paid. Please call back today # [phone] NICAL REPORT WRITER documented in this encounter Plan of Treatment Not on file documented as of this encounter Visit Diagnoses Not on filedocumented in this encounter Care Teams E Learning Manager Relationship Specialty Start Date End Date Artemio Park MD [address] [place] [address] PCP - General Family Medicine 08/14/19 Bob Sanchez MD [address] [place] [address] Primary Eye Care Provider Ophthalmology 08/25/19 Quincy Diego MD [address] [place] [address] Consulting Physician Ophthalmology 08/25/19 documented as of this encounter
--- OUTSIDE RECORDS SUMMARY | 2024-10-31 10:07 | XMS_ITS | Encounter Summary ---
Author Organization [facility] Address [address] [place] [address] Phone Care Team Providers Care Sand Control Worker Name Role Phone Artemio Park MD Primary Care Provider [phone] Bob Sanchez MD Unavailable [phone] Quincy Diego MD Unavailable Encounter Details Date Type Department Care Team (Late st Contact Info) Description 12/14/2019 2:30 PM DOUBLE END CHUCKING MACHINE OPERATOR Office Visit [facility] Ophthalmology [facility] 6th [place] [id number] Swapna Bee MD [address] [place] [address] 6 [place], [place] [id number] Eric hereditary optic neuropathy (Primary Dx); Optic [...] on file Legal Sex Male 3:22 AM 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 LE END CHUCKING MACHINE OPERATOR documented in this encounter Progress Notes * Swapna Bee MD - 12/14/2019 2:30 PM CST Gamaliel Moscoso is a 59 y.o. 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 Interval History: He was last seen in the neuro-ophthalmology clinic on 10/06/2019. He confirms that he saw his primary care physician and got a screening EKG, which was normal. He is taking CQ10 and tried for 1 month. He then did purchase the Idebenone for approx 2 weeks now,he has ordered a 60 day supply which cost $287.00. He has cut back on smoking but has not been ableto quit. He states that his vision continues to worsening since his last visit. He has not yet visited Low Vision services. Summary of Clinical Course: Allow me to summarize his clinical course for my records. - Family history of blindness in a maternal uncle who in his 50s. - June 2019: Painless vision change OD, [...] parafoveal ganglion cell complex thinning OD. 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 - 10/06/2019: Neuro-ophthalmology follow-up. Examination showed VA 5/200 OD, 6/200 OS; central scotomas OU (size 5 stimulus); RNFL 104 microns OD, 102 microns OS; GCC 56 microns OD, 64 microns OS. Wediscussed idebenone. Instead, he considered trying coenzyme Q10. He was referred to Low Vision. He was instructed to get an EKG at his primary care provider's office. - EKG was performed and was normal, per patient. Current Medical Problems Patient Active Problem List Diagnosis ??? Essential hypertension ??? Type 2 diabetes mellitus, with long-term current use of insulin ([facility]) ??? Cataracts, both eyes ??? 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 Presbyopia of both eyes ??? Optic neuropathy of both eyes ? ? Eric hereditary optic neuropathy (m.25843 G>A, tested 08/25/2019) ??? 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 Tobacco abuse disorder Past Medical History Past Medical History: Diagnosis Date ??? Cataracts, both eyes ??? Essential hypertension 08/25/2019 ? ? Eric hereditary optic neuropathy (m.55710 G>A, tested 08/25/2019) 10/06/2019 ??? 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 Nonproliferative diabetic retinopathy with macular edema associated with type 2 diabetes mellitus ([facility]) ??? Pancreatitis 08/25/2019 ??? Presbyopia of both eyes ??? Strabismus ??? Type 2 diabetes mellitus, with long-term current use of insulin ([facility]) 08/25/2019 Past Surgical History No past surgical history on file. Medications Current Outpatient Medications on File Prior [...] Heme/Lymph Last edited by Lilly Goodwin on 12/14/2019 1:32 PM. (History) Physical Exam Base Eye Exam Visual Acuity (Snellen - Linear) Right Left Dist cc 1/200 3/200 Correction: Glasses Tonometry (Tonopen, 3:20 PM) Right Left Pressure 14 14 Pupils Dark Light Shape React APD Right 5 4 Round Minimal Trace Left 5 4 Round Minimal - Visual Romero Left Right Restrictions Partial inner superior temporal, inferior temporal, superior nasal, inferior nasal deficiencies Partial inner superior temporal, inferior temporal, superior nasal, inferior nasal deficiencies Extraocular Movement Right Left Full Full Neuro/Psych Oriented x3: Yes Mood/Affect: Normal Dilation Both eyes: 1.0% Mydriacyl, 2.5% Phenylephrine @ 3:21 PM Additional Tests Color Right Left Ishihara no cp no cp Cranial Nerves CN V Right Left Overall [...] no cell Fundus Exam Right Left Disc Temporal pallor Temporal pallor C/D Ratio 0.25 0.2 Macula Normal Normal Vessels Normal Normal Periphery Normal Normal Testing Antunez Visual Field - OU - Both Eyes SIZE 5 STIMULUS OU (mean deviation, foveal threshold, fixation monitor turned off) OD: Diffuse depression, worst centrally, 1/13 FP, 5/13 FN OS: Diffuse depression, worst centrally, 0/10 FP, 0/1 FN OCT, Optic Nerve - OU - Both [...] thickness 102 micrometers. Notes Difficulty with fixation OCT, Retina - OU - Both Eyes Component Value Flag Ref Range Units Status Central Macular Thickness OS 227 mircometers Final Central Macular Thickness OD 223 micrometers Final Right Eye Macular thickness was 223 micrometers. Left Eye Macular thickness was 227 mircometers. Notes Difficulty with fixation Diffuse ganglion cell complex thinning OU, with mean GCC thickness 56 microns OD, 64 microns OS Assessment/Plan [...] - OU - Both Eyes Legally blind - Antunez Visual Field - OU - Both Eyes - OCT, Optic Nerve - OU - Both Eyes - OCT, Retina - OU - Both Eyes Tobacco abuse disorder - Antunez Visual Field - OU - Both Eyes - OCT, Optic Nerve - OU - Both Eyes - OCT, Retina - OU - Both Eyes This is a 59-year-old man with family history of blindness in a maternal uncle, who is a current tobacco smoker, who presents for follow up of Eric hereditary optic neuropathy (89954 G>A mutation). Based on his visual function today, he currently meets the criteria for legal blindness OU. He is not legal to drive in the states of [place] or [place] based on his currently level of vision loss. ?? 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 His examination today is consistent with severe vision loss OU due to LHON, with central scotomas OU and generalized depression OU on visual romero, normal appearance of the optic discs OU other than temporal pallor OU. He has diffuse ganglion cell complex thinning on OCT, consistent with his profound vision loss. I anticipate that he will be permanently legally blind. ?? Eric hereditary optic neuropathy is a mitochondrial disease that is maternally- inherited, and thatit causes irreversible optic nerve damage, often precipitated by a metabolic stressor. There is no cure for LHON. We discussed tobacco and alcohol as specific metabolic stressors that may worsen the optic nerve damage. He was again specifically counseled not to smoke. We discussed that in some cases, there is a small degree of spontaneous improvement, but not back to the prior visual baseline. ?? We discussed that the only treatment that has been shown to have some efficacy is idebenone, which he is currently taking. He reports that he has undergone an EKG to screen for cardiac involvement, which he reports was normal. I provided him with information for services for blind and low vision patients to learn to skills and how to make the best use out of the vision that he has. ?? He will follow up in the neuro-ophthalmology clinic in 2-3 months. Swapna Bee MD Urban Design Consultant Department of Ophthalmology and Visual Sciences Department of Neurology [facility] LE END CHUCKING MACHINE OPERATOR documented in this encounter Plan of Treatment Not on file documented as of this encounter Procedures Procedure Name Priority Date/Time Associated Diagnosis Comments OCT, OPTIC NERVE - OU - BOTH EYES Routine 12/14/2019 2:42 PM DOUBLE END CHUCKING MACHINE OPERATOR Eric hereditary optic neuropathy Optic neuropathy of both eyes Legally blind Tobacco abuse disorder ANTUNEZ VISUAL FIELD - OU - BOTH EYES Routine 12/14/2019 2:42 PM DOUBLE END CHUCKING MACHINE OPERATOR Eric hereditary optic neuropathy Optic neuropathy of both eyes Legally blind Tobacco abuse disorder OCT, RETINA - OU - BOTH EYES Routine 12/14/2019 2:42 PM DOUBLE END CHUCKING MACHINE OPERATOR Eric hereditary optic neuropathy Optic neuropathy of both eyes Legally blind Tobacco abuse disorder documented in this encounter Results * OCT, Optic Nerve - OU - Both Eyes (12/14/2019 2:42 PM DOUBLE END CHUCKING MACHINE OPERATOR) RNFL OS 102 micrometers RNFL OD 104 micrometers Anatomical Region Laterality Modality Head Optical Coherenc e Tomography Narrative 12/14/2019 3:04 PM DOUBLE END CHUCKING MACHINE OPERATOR Right Eye Reliability was good. Temporal thickness [...] OU - Both Eyes (12/14/2019 2:42 PM DOUBLE END CHUCKING MACHINE OPERATOR) Anatomical Region Laterality Modality Head Visual Field Narrative 12/14/2019 3:03 PM DOUBLE END CHUCKING MACHINE OPERATOR SIZE 5 STIMULUS OU (mean deviation, foveal threshold, fixation monitor turned off) OD: Diffuse depression, worst centrally, 1/13 FP, 5/13 FN OS: Diffuse depression, worst centrally, 0/10 FP, 0/1 FN us Swapna Bee MD OPH VISUAL FIELD Final Re sult * OCT, Retina - OU - Both Eyes (12/14/2019 2:42 PM DOUBLE END CHUCKING MACHINE OPERATOR) Central Macular Thickness OS 227 mircometers Central Macular Thickness OD 223 micrometers Anatomical Region Laterality Modality Head Optical Coherenc e Tomography Narrative 12/14/2019 3:05 PM DOUBLE END CHUCKING MACHINE OPERATOR Right Eye Macular thickness was 223 micrometers. [...] Linear) Right eye Left eye Dist cc 1/200 3/200 Correction: Glasses Tonometry (Tonopen, 3:20 PM) Right eye Left eye Pressure 14 14 Pupils Dark Light Shape React APD Right eye 5 4 Round Minimal Trace Left eye 5 4 Round Minimal - Visual Romero Right eye Left eye Restrictions Partial inner superi or temporal, inferior temporal, superior nasal, inferior nasal deficiencies Partial inner superior temporal, inferior temporal, superior nasal, inferior nasal deficiencies Extraocular Movement Right eye Left eye Full Full Neuro/Psych Oriented x3: Yes Mood/Affect: Normal Dilation Both eyes: 1.0% Mydriacyl, 2 .5% Phenylephrine @ 3:21 PM Color Right eye Left eye Ishihara no cp no cp CN V Right eye Left eye Overall [...] Right eye Left eye Disc Temporal pallor Temporal pallor C/D Ratio 0.25 0.2 Macula Normal Normal Vessels Normal Normal Periphery Normal Normal Care Teams Sand Control Worker Relationship Specialty Start Date End Date Artemio Park MD [employer] [place] [address] PCP - General Family Medicine 08/14/19 Bob Sanchez MD [employer] [address] [address] Primary Eye Care Provider Ophthalmology 08/25/19 Quincy Diego [place] [employer] [place] [address] Consulting Physician Ophthalmology 08/25/19 documented as of this encounter
--- OUTSIDE RECORDS SUMMARY | 2024-10-31 10:13 | XMS_ITS | Continuity of Care Document ---
Author Organization [facility] [place] [address] [place] [address] [address] [place] [address] Phone Care Team Providers Care Brake Lining Driller Name Role Phone Bob Sanchez MD Unavailable Unavailable Allergies, Adverse Reactions, Alerts Substance Reaction Status Criticality No Known Allergies Active No Inform ation Medications Medication Instructions Dosage Effective Dates (start - stop) Status Comments Rome 7.5 mg-325 mg tablet take 1 tablet by oral route every 6 hours as needed for pain - Active lisinopril 20 mg tablet take 1 tablet by oral route every day 20 MG - Active Humalog KwikPen (U-100) Insulin 100 unit/mL subcutaneous inject by subcutaneous route per prescriber's instructions. Insulin dosing requires individualization. 0.00 - Active Procedures Procedure Date Special Reports [...] Diagnoses Date Provider Providers Copied on Encounter [facility], [address], [place], [place], [id number], [place] tel:[phone] SEC Kashif Odell No Information Sep-2 - 0 Daniel Rojas. [address], [address], [place], [place], [id number], . tel:[phone] Referring Provider: Bob Lopez, [address], [place], [address] . tel:[phone] [facility], [address] [place] [address] [address], [place], [place], [id number], tel:[phone] SEC Kashif Erickson No Information Sep-0 3-202 0 Daniel Rojas. [address], [address] [place], [id number], . tel:[phone] Referring Provider: Bob Lopez, [address] [facility] [address], [place], [address] . tel:[phone] Office/outpa tient Visit, [facility], [address] [place] [address] [address], [place], [place], [id number], tel:[phone] SEC [place] Professional Cataract evaluation (chief complaint) Age-related nuclear cataract, bilateralType 2 diabetes mellitus without complications Decreased peripheral vision of both eyes Oct-0 4-201 9 Daniel Rojas. [address], [address], [id number], . tel:[phone] Referring Provider: Bob Lopez, [address] [address], [place], [address] . tel:[phone] [facility], [address] [place] [address] [address], [place], [place], [id number], [place] tel:[phone] SEC [place] Professional Cataract evaluation (chief complaint) Age-related nuclear cataract, bilateralPupi llary membrane of right eyeType 2 diabetes mellitus without complications Sep-0 6-201 9 Daniel Rojas. [address], [facility] [place], [id number], [place]. tel:[phone] Referring Provider: Bob Lopez, [address] [facility] [address], [place], [address] . tel:[phone] Family History Family Member Type Diagnosis Age At Onset Father Problem (finding) Diabetes mellitus Payers Payer name Insurance type Covered green party ID Authoriza tion(s) No Information Social History Type Description Quantity Date Captured Comments Sex Male Smoking Status No Information Chief Complaint And Reason For Visit No Information Reason For Referral Reason For Referral No Information Plan Of Treatment Date Type Action Status Goal Tobacco cessation counseling completed Goal Tobacco cessation counseling completed Referral Referred To: Brandie MELVIN, [place] [address] [facility] [place], [phone] Ordered: Referrals: Ophthalmology. Quincy Diego MD. Evaluate [...] signs. Patient recently seen Dr. Diego at [facility] and OK'd for surgery. Patient is a [...]
== END 2024-10-26 15:14 | disposition home or self-care (01) ==
PROVIDERS: PCP Family Medicine; Visit Provider Surgery
PROC: (CPT 19303; principal; 2024-10-26 12:00)
DX: N62 Hypertrophy of breast (principal); N64.4 Mastodynia; E10.40 Type 1 diabetes mellitus with diabetic neuropathy, unspecified; F17.210 Nicotine dependence, cigarettes, uncomplicated; F12.90 Cannabis use, unspecified, uncomplicated; Z79.4 Long term (current) use of insulin
CPT/HCPCS: 19300; 82948; 88305; A9270; J0690; J1885; J2003; J2250; J2371; J2405; J2704; J3010; J7120

== ENCOUNTER 2024-10-29 01:06 | Day surgery (SDC) | payer MEDICARE, SELFPAY ==
[2024-10-22 13:20] VITALS: BMI 18.5
[2024-10-29 08:02] VITALS: BP 117/79; PULSE 88; RESP 16; TEMP 36.4; O2SAT 100; BMI 18.1
--- NOTE | 2024-10-29 08:17 | WPDANESEPPF ---
Anes - Initial Pre Proc Eval Procedure: Operation Date: 10/29/24 09:30 Proposed Procedures p Esophagogastroduodenoscopy & Colonoscopy - Ralph Jimenez MD Date/Time: 10/29/24 08:17 Surgeon: Ralph Jimenez MD Pre Op Diagnosis: other fecal abnormalities Patient Data Age: 64 Gender: M Height: 1.78 m Weight: 57.4 kg Last Vital Signs Temp 36.4 C L 10/29/24 08:02 Pulse 88 10/29/24 08:02 Resp 16 10/29/24 08:02 BP 117/79 10/29/24 08:02 Pulse Ox 100 10/29/24 08:02 O2 Del Method Room Air 10/29/24 08:02 Allergies Allergy/AdvReac Type Severity Reaction Status Date / Time No Known Allergies Allergy Verified 10/29/24 08:09 Home Medications ?Medication ?Instructions ?Recorded ?Confirmed ?Type fluticasone propionate 50 1 spray intranasal BID #16 mL 12/18/21 10/29/24 Rx mcg/actuation nasal spray,suspension (Flonase Allergy Relief) pantoprazole 40 mg tablet,delayed 40 mg PO BID #180 tabs 10/02/22 10/29/24 Rx release blood-glucose sensor (FreeStyle #9 ea 07/04/23 10/22/24 Rx Zenobia 3 Sensor device) magnesium oxide 500 mg PO BID 02/12/24 10/29/24 History pravastatin 10 mg tablet 10 mg PO DAILY #90 tabs 02/24/24 10/29/24 Rx zolpidem 10 mg tablet (Ambien) 10 mg PO QHS PRN insomnia #90 tabs 07/14/24 10/29/24 Rx escitalopram oxalate 10 mg tablet 10 mg PO HS #90 tabs 07/22/24 10/29/24 Rx (Lexapro) glucagon 1 mg/0.2 mL subcutaneous 1 mg (0.2 mL) subcut ONCE #2 mL 07/23/24 10/29/24 Rx auto-injector (Gvoke HypoPen 2-Pack) glucose 4 gram chewable tablet 16 g (4 x 4 gram) PO Q15M PRN 07/23/24 10/29/24 Rx hypoglycemia #360 tabs insulin glargine 100 unit/mL (3 3 unit (0.03 mL) subcut QPM #15 mL 07/23/24 10/29/24 Rx mL) subcutaneous pen (Lantus Solostar U-100 Insulin) insulin lispro 100 unit/mL 3 unit (0.03 mL) subcut TID #15 mL 07/23/24 10/29/24 Rx subcutaneous pen (Humalog KwikPen (U-100) Insulin) amitriptyline 25 mg tablet 12.5 mg (1/2 x 25 mg) PO QHS #45 09/10/24 10/29/24 Rx tabs potassium chloride 20 mEq 20 meq PO . q.a.m. #30 tabs 09/14/24 10/29/24 Rx tablet,extended release hydrocodone 7.5 mg-acetaminophen 1 tablet PO Q4H PRN pain #120 tabs 10/19/24 10/29/24 Rx 325 mg tablet oxycodone 5 mg tablet 5 mg PO Q4H PRN pain #15 tabs 10/26/24 10/29/24 Rx Patient hx anesthesia problems: none Family hx anesthesia problems: none Results Review: All pre-operative results and documents have been reviewed as part of the pre-operative evaluation. [facility] Past Medical History Medical History BMI < 18.5 Subareolar gynecomastia in male (~2023) Occult GI bleeding (~09/14/24) stool positive for occult blood 09/14/2024 Breast mass in male (~02/2024) left retroareolar breast mass 3 cm Chest pain Lexiscan stress test with no evidence of ischemia 03/18/2024. Vitamin D insufficiency (01/17/24) level low at 12.8 with goal greater than 30 on 01/17/2024. Low magnesium level (01/17/24) level low at 3.0 on 01/17/2024. Magnesium 1.4 on 02/10/2024. Magnesium 1.6 on 09/03/2024. Hypokalemia (01/17/24) potassium 3.0 with magnesium 1.2 on 01/17/2024. Potassium 4.1 on 02/10/2024. Potassium 3.3 on 09/03/2024. Encounter for prostate cancer screening PSA normal at 2.31 on 05/25/2022. PSA 2.4 on 09/03/2024. Diabetes mellitus, insulin dependent (IDDM), controlled fasting glucose 117 with hemoglobin A1c 5.6 on 05/25/2022. fasting glucose 127 with hemoglobin A1c 6.3 on 03/02/2023. Elevated liver enzymes (05/25/22) GGT 346, AST 61, ALT 51, alkaline phosphatase 150 on 05/25/2022. GGT 205, AST 42, ALT 37, alkaline phosphatase 147 on 03/02/2023. GGT 108, AST elevated at 67 with ALT 32 and alkaline phosphatase 185 on 01/17/2024. GGT 216 on 02/10/2024. GGT 129, AST 42, ALT 19, alkaline phosphatase 57 on 09/03/2024. Welcome to Medicare preventive visit BMI 20.0-20.9, adult At moderate risk for fall Hypomagnesemia Recurrent syncope Tachycardia (01/29/22) EKG 01/29/2022 with sinus tachycardia with heart rate [address] T wave changes, cannot rule out inferior TN. Echocardiogram 01/31/2022 with ejection fraction 60-65%, unremarkable except for tachycardia heart rate 122. Normal thyroid function with TSH 1.23, free T4 0.9, T3 total 102 on 03/02/2023. Syncope (~01/2022) EEG 02/01/2022 normal. Carotid Doppler study unremarkable 01/30/2022 . Nocturia PSA normal at 2.31 on 05/25/2022. Diabetic neuropathy associated with type 1 diabetes mellitus Chronic thoracic back pain On prescription opioids. Mild intermittent asthma in adult without complication Situational anxiety Insomnia Chronic depression Julissa hereditary optic neuropathy legally blind. No central vision. Chronic pancreatitis Amylase elevated at 221 with lipase less than 5 on 05/25/2022. amylase 66 with lipase less than 5 on 03/02/2023. Amylase 127 with lipase at 11 on 01/17/2024. Essential (primary) hypertension Uncontrolled type 1 diabetes mellitus with hyperglycemia Glucose 117 with hemoglobin A1c 5.6 and urine microalbumin ratio of 3 on 05/25/2022. Surgical History Surgical History History of partial colectomy For what sounds like perforated diverticulitis. History of orthopedic surgery Left 5th finger surgery. Bilateral foot surgery. History of cholecystectomy History of tonsillectomy Family History Family History Father Family history of kidney disease Family history of diabetes mellitus in first degree relative Family history of heart disease in male family member before age 55 Patient's father is , Onset Age: 45 Family history of cardiovascular disease Acute myocardial infarction Diabetes mellitus Mother Cerebrovascular accident 10/2017 Cancer Other Diabetes mellitus cousins Sibling Asthma Breast cancer Diagnosed age 59 Social History Social History Social History: Surrogate decision maker: Kiya Ba, sister. Code status: Full code. He would not however want to be on long-term life support. Smoking packs per day: 1 Smoking cigarettes per day: 20.0 Years smoked: 50 Smoking pack-years: 50.00 Smoking status: Former smoker Tobacco type: cigars ( occasional small flavored cigar) Second hand tobacco smoke exposure: Yes Additional smoking assessment comments: Started at age 12 Drinks per week: 3 Alcohol use details: sips qt of braxton whiskey over 3-4 days Substance use: current Substance use type: marijuana Other substance usage details: He grows his own plants at home Last use: daily Do You Feel Safe in your Home?: Yes Lack of Transportation: No Lack of Food: Never True Current Housing: I Have Housing Concerned About Future Housing: No Difficulty Paying Gas/Electric Bills: No Difficulty Paying for Meds: No Currently Unemployed: No Education: High School Diploma/GED Difficulty w/ Childcare or Family Care: No Living arrangements: alone Additional living arrangements comments: The patient lives alone in [place]. 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 Spiritual care concerns: No Anes - Eval Final PreProcedure Day of Procedure 10/29/24 08:17 Patient weight: thin Heart: regular rate and rhythm Lungs: clear to auscultation Airway: Mallampati scale class II Neurological: alert and oriented Last oral intake: >/= 8 hours ASA classification: III Emergent: no Anesthetic plan: proceed Anesthesia type and monitoring: general GIVS and standard monitoring Results Review: All pre-operative results and documents have been reviewed as part of the pre-operative evaluation. Informed Consent: The patient's anesthetic plan and its attendant risks and benefits were discussed with the patient/family/POA. Questions were solicited and answers provided to the satisfaction of the patient/family/POA.
--- NOTE | 2024-10-29 08:18 | SUR.PREOP ---
Notified that patient had a cheeseburger at 1100 yesterday, said he'll proceed with procedure
[2024-10-29] MEDS: LACTATED RINGERS 1,000 ML 150 ML IV CONT (08:30)
[2024-10-29 08:40] LABS: Glucose Point of Care 104 mg/dl (65-105)
--- NOTE | 2024-10-29 09:27 | PM.IMHP ---
H&P: [facility] History of Present Illness Date/Time: 10/29/24 09:27 Chief Complaint: GERD-history of colon polyps Narrative: patient has chronic, longstanding heartburn episodes, not associated with dysphagia, nausea or vomiting. In addition, there is a history of partial colonic resection for spontaneous perforation several years ago. He states having a history of colonic polyps as well. He is here for EGD and colonoscopy. Review of Systems Review of Systems: All systems reviewed & are unremarkable except as noted in HPI and below PMFSH Past Medical History Medical History BMI < 18.5 Subareolar gynecomastia in male (~2023) Occult GI bleeding (~09/14/24) stool positive for occult blood 09/14/2024 Breast mass in male (~02/2024) left retroareolar breast mass 3 cm Chest pain Lexiscan stress test with no evidence of ischemia 03/18/2024. Vitamin D insufficiency (01/17/24) level low at 12.8 with goal greater than 30 on 01/17/2024. Low magnesium level (01/17/24) level low at 3.0 on 01/17/2024. Magnesium 1.4 on 02/10/2024. Magnesium 1.6 on 09/03/2024. Hypokalemia (01/17/24) potassium 3.0 with magnesium 1.2 on 01/17/2024. Potassium 4.1 on 02/10/2024. Potassium 3.3 on 09/03/2024. Encounter for prostate cancer screening PSA normal at 2.31 on 05/25/2022. PSA 2.4 on 09/03/2024. Diabetes mellitus, insulin dependent (IDDM), controlled fasting glucose 117 with hemoglobin A1c 5.6 on 05/25/2022. fasting glucose 127 with hemoglobin A1c 6.3 on 03/02/2023. Elevated liver enzymes (05/25/22) GGT 346, AST 61, ALT 51, alkaline phosphatase 150 on 05/25/2022. GGT 205, AST 42, ALT 37, alkaline phosphatase 147 on 03/02/2023. GGT 108, AST elevated at 67 with ALT 32 and alkaline phosphatase 185 on 01/17/2024. GGT 216 on 02/10/2024. GGT 129, AST 42, ALT 19, alkaline phosphatase 57 on 09/03/2024. Welcome to Medicare preventive visit BMI 20.0-20.9, adult At moderate risk for fall Hypomagnesemia Recurrent syncope Tachycardia (01/29/22) EKG 01/29/2022 with sinus tachycardia with heart rate [address] T wave changes, cannot rule out inferior HI. Echocardiogram 01/31/2022 with ejection fraction 60-65%, unremarkable except for tachycardia heart rate 122. Normal thyroid function with TSH 1.23, free T4 0.9, T3 total 102 on 03/02/2023. Syncope (~01/2022) EEG 02/01/2022 normal. Carotid Doppler study unremarkable 01/30/2022 . Nocturia PSA normal at 2.31 on 05/25/2022. Diabetic neuropathy associated with type 1 diabetes mellitus Chronic thoracic back pain On prescription opioids. Mild intermittent asthma in adult without complication Situational anxiety Insomnia Chronic depression Julissa hereditary optic neuropathy legally blind. No central vision. Chronic pancreatitis Amylase elevated at 221 with lipase less than 5 on 05/25/2022. amylase 66 with lipase less than 5 on 03/02/2023. Amylase 127 with lipase at 11 on 01/17/2024. Essential (primary) hypertension Uncontrolled type 1 diabetes mellitus with hyperglycemia Glucose 117 with hemoglobin A1c 5.6 and urine microalbumin ratio of 3 on 05/25/2022. Surgical History Surgical History History of partial colectomy For what sounds like perforated diverticulitis. History of orthopedic surgery Left 5th finger surgery. Bilateral foot surgery. History of cholecystectomy History of tonsillectomy Family History Family History Father Family history of kidney disease Family history of diabetes mellitus in first degree relative Family history of heart disease in male family member before age 55 Patient's father is , Onset Age: 45 Family history of cardiovascular disease Acute myocardial infarction Diabetes mellitus Mother Cerebrovascular accident 10/2017 Cancer Other Diabetes mellitus cousins Sibling Asthma Breast cancer Diagnosed age 59 Social History Social History Social History: Surrogate decision maker: Kiya Ba, sister. Code status: Full code. He would not however want to be on long-term life support. Smoking packs per day: 1 Smoking cigarettes per day: 20.0 Years smoked: 50 Smoking pack-years: 50.00 Smoking status: Former smoker Tobacco type: cigars ( occasional small flavored cigar) Second hand tobacco smoke exposure: Yes Additional smoking assessment comments: Started at age 12 Drinks per week: 3 Alcohol use details: sips qt of braxton whiskey over 3-4 days Substance use: current Substance use type: marijuana Other substance usage details: He grows his own plants at home Last use: daily Do You Feel Safe in your Home?: Yes Lack of Transportation: No Lack of Food: Never True Current Housing: I Have Housing Concerned About Future Housing: No Difficulty Paying Gas/Electric Bills: No Difficulty Paying for Meds: No Currently Unemployed: No Education: High School Diploma/GED Difficulty w/ Childcare or Family Care: No Living arrangements: alone Additional living arrangements comments: The patient lives alone in [place]. 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 Spiritual care concerns: No Meds Home Medications and Allergies Home Medications ?Medication ?Instructions ?Recorded ?Confirmed ?Type fluticasone propionate 50 1 spray intranasal BID #16 mL 12/18/21 10/29/24 Rx mcg/actuation nasal spray,suspension (Flonase Allergy Relief) pantoprazole 40 mg tablet,delayed 40 mg PO BID #180 tabs 10/02/22 10/29/24 Rx release blood-glucose sensor (FreeStyle #9 ea 07/04/23 10/22/24 Rx Zenobia 3 Sensor device) magnesium oxide 500 mg PO BID 02/12/24 10/29/24 History pravastatin 10 mg tablet 10 mg PO DAILY #90 tabs 02/24/24 10/29/24 Rx zolpidem 10 mg tablet (Ambien) 10 mg PO QHS PRN insomnia #90 tabs 07/14/24 10/29/24 Rx escitalopram oxalate 10 mg tablet 10 mg PO HS #90 tabs 07/22/24 10/29/24 Rx (Lexapro) glucagon 1 mg/0.2 mL subcutaneous 1 mg (0.2 mL) subcut ONCE #2 mL 07/23/24 10/29/24 Rx auto-injector (Gvoke HypoPen 2-Pack) glucose 4 gram chewable tablet 16 g (4 x 4 gram) PO Q15M PRN 07/23/24 10/29/24 Rx hypoglycemia #360 tabs insulin glargine 100 unit/mL (3 3 unit (0.03 mL) subcut QPM #15 mL 07/23/24 10/29/24 Rx mL) subcutaneous pen (Lantus Solostar U-100 Insulin) insulin lispro 100 unit/mL 3 unit (0.03 mL) subcut TID #15 mL 07/23/24 10/29/24 Rx subcutaneous pen (Humalog KwikPen (U-100) Insulin) amitriptyline 25 mg tablet 12.5 mg (1/2 x 25 mg) PO QHS #45 09/10/24 10/29/24 Rx tabs potassium chloride 20 mEq 20 meq PO . q.a.m. #30 tabs 09/14/24 10/29/24 Rx tablet,extended release hydrocodone 7.5 mg-acetaminophen 1 tablet PO Q4H PRN pain #120 tabs 10/19/24 10/29/24 Rx 325 mg tablet oxycodone 5 mg tablet 5 mg PO Q4H PRN pain #15 tabs 10/26/24 10/29/24 Rx Allergies Allergy/AdvReac Type Severity Reaction Status Date / Time No Known Allergies Allergy Verified 10/29/24 08:09 Vital Signs Vital Signs - 24 hr 10/29/24 08:02 Temperature 97.5 F L Pulse Rate 88 Respiratory Rate 16 Blood Pressure 117/79 Pulse Oximetry 100 Oxygen Delivery Room Air Exam Narrative: large vertical scar in the abdomen Const: General: cooperative and healthy appearing Resp: Effort & Inspection: normal respiratory effort and able to speak in complete sentences Auscultation: clear to auscultation bilaterally Cardio: Rate: regular rate Rhythm: regular rhythm GI: Inspection: normal to inspection GI Palp: No No hepatosplenomegaly present Auscultation: normal bowel sounds Rectal Exam: deferred Skin: General skin exam: normal color Psych: Appearance: grossly normal Mental Status: mental status grossly normal Assessment and Plan Assessment and plan (1) GERD (gastroesophageal reflux disease): Qualifiers: Esophagitis presence: without esophagitis Qualified Code(s): K21.9 - Gastro-esophageal reflux disease without esophagitis Code(s): K21.9 - Gastro-esophageal reflux disease without esophagitis Status: Acute (2) History of colon polyps: Code(s): Z86.010 - Personal history of colon polyps Status: Acute Assessment and Plan: The patient is deemed a good candidate for the procedure. Consent signed. Will proceed.
--- NOTE | 2024-10-29 10:06 | SUR.OPER ---
EGD END: 1002 COLONOSCOPY START: 100
[2024-10-29 10:24] VITALS: BP 122/79; PULSE 78; RESP 19; O2SAT 97
[2024-10-29 10:34] VITALS: BP 125/82; PULSE 81; RESP 16; O2SAT 95
[2024-10-29 10:36] LABS: Glucose Point of Care 91 mg/dl (65-105)
[2024-10-29 10:44] VITALS: BP 115/80; PULSE 81; RESP 20; O2SAT 94
== END 2024-10-29 11:00 | disposition home or self-care (01) ==
PROVIDERS: PCP Family Medicine; Visit Provider Internal Medicine Gastroenterology
PROC: 0DJ08ZZ Inspection of Upper Intestinal Tract, Via Natural or Artificial Opening Endoscopic (ICD-10-PCS; CPT 43235; principal; 2024-10-29 09:30)
DX: Z12.11 Encounter for screening for malignant neoplasm of colon (principal); D12.2 Benign neoplasm of ascending colon; K21.00 Gastro-esophageal reflux disease with esophagitis, without bleeding; K22.70 Barrett's esophagus without dysplasia; K29.51 Unspecified chronic gastritis with bleeding; K44.9 Diaphragmatic hernia without obstruction or gangrene; K29.80 Duodenitis without bleeding; Z79.4 Long term (current) use of insulin; F12.90 Cannabis use, unspecified, uncomplicated; Z72.0 Tobacco use
CPT/HCPCS: 45385; 43239; 82948; 88305; J2003; J2704; J7120

== ENCOUNTER 2024-12-25 17:22 | Emergency (ER) | payer MEDICARE, SELFPAY ==
--- NOTE | ~2024-12-25 | XR_ITS ---
HISTORY: fall, cat bite COMPARISON: None TECHNIQUE: 3 views of the left wrist were performed. FINDINGS: No acute fracture is identified. The carpal arcs are intact. Mild radiocarpal joint space narrowing with sclerosis of the distal radius is present. Degenerative disease is present within the first carpometacarpal joint space. The remaining visualized joint spaces are otherwise preserved. 1.6 mm density projects over the palmar surface of the hyperthenar eminence. Bone mineralization is age-appropriate. No significant soft tissue swelling is noted. IMPRESSION: Degenerative disease, without acute fracture. Radiopaque foreign body projecting over the hypothenar eminence along the palmar surface, as detailed above. Reviewed, dictated and finalized at location A. AGE LINE OPERATOR IMPRESSION: Degenerative disease, without acute fracture. Radiopaque foreign body projecting over the hypothenar eminence along the oconnor r surface, as detailed above.
[2024-12-25 17:35] VITALS: BP 138/82; PULSE 113; RESP 18; TEMP 37.2; O2SAT 100
--- NOTE | 2024-12-25 17:48 | ED.UPPEXIN ---
HPI - Extremity Injury (Upper) General Chief Complaint: Wound/Laceration Stated Complaint: Cat Bite/FALL Time Seen by Provider: 12/25/24 17:23 Source: patient Mode of arrival: ambulatory Limitations: no limitations History of Present Illness HPI narrative: Patient is a 64-year-old male who presents with left wrist pain after getting bit by cat and then falling backwards on to same wrist. Patient reports swelling, pain and redness. Denies any fever, chills, nausea, vomiting, diarrhea. Denies any numbness or tingling to fingers. Does report decreased range of motion due to swelling and pain. Patient reported has been 20+ years since last tetanus shot Related Data Home Medications ?Medication ?Instructions ?Recorded ?Confirmed ?Last Taken ?Type magnesium oxide 500 mg PO BID 02/12/24 11/13/24 10/28/24 History Allergies Allergy/AdvReac Type Severity Reaction Status Date / Time No Known Allergies Allergy Verified 12/25/24 17:24 Review of Systems Review of Systems: All systems reviewed & are unremarkable except as noted in HPI and below Constitutional: Constitutional: Denies body ache(s), Denies chills, Denies fatigue, Denies fever(s), Denies headache(s), Denies malaise and Denies weakness Eyes: Eyes: Denies blurry vision, Denies irritation and Denies loss of vision ENT: Denies otalgia, Denies headache(s), Denies nasal discharge, Denies sinus pain and Denies sore throat Cardiovascular: Cardiovascular: Denies chest pain, Denies irregular heart rhythm and Denies dyspnea Respiratory: Respiratory: Denies dyspnea Gastrointestinal: Gastrointestinal: Denies abdominal pain, Denies melena, Denies hematochezia, Denies diarrhea, Denies nausea and Denies vomiting Musculoskeletal: Musculoskeletal: Denies back pain, Denies myalgias, Reports arthralgias and Reports joint swelling Integumentary/Breasts: Skin/Breast: Denies pruritus, Denies rash and Reports wounds Neurologic: Denies headache(s), Denies loss of vision and Denies weakness Psychiatric: Psychiatric: Reports no additional psychiatric complaints Endocrine: Endocrine: Denies fatigue PMFSH Past Medical History Medical History Evans's esophagus with esophagitis (10/29/24) EGD with Evans's esophagitis without dysplasia on 10/29/2024 with gastritis and duodenitis. BMI < 18.5 Subareolar gynecomastia in male (~2023) Occult GI bleeding (~09/14/24) stool positive for occult blood 09/14/2024 Breast mass in male (~02/2024) left retroareolar breast mass 3 cm Chest pain Lexiscan stress test with no evidence of ischemia 03/18/2024. Vitamin D insufficiency (01/17/24) level low at 12.8 with goal greater than 30 on 01/17/2024. Low magnesium level (01/17/24) level low at 3.0 on 01/17/2024. Magnesium 1.4 on 02/10/2024. Magnesium 1.6 on 09/03/2024. Hypokalemia (01/17/24) potassium 3.0 with magnesium 1.2 on 01/17/2024. Potassium 4.1 on 02/10/2024. Potassium 3.3 on 09/03/2024. Encounter for prostate cancer screening PSA normal at 2.31 on 05/25/2022. PSA 2.4 on 09/03/2024. Diabetes mellitus, insulin dependent (IDDM), controlled fasting glucose 117 with hemoglobin A1c 5.6 on 05/25/2022. fasting glucose 127 with hemoglobin A1c 6.3 on 03/02/2023. Elevated liver enzymes (05/25/22) GGT 346, AST 61, ALT 51, alkaline phosphatase 150 on 05/25/2022. GGT 205, AST 42, ALT 37, alkaline phosphatase 147 on 03/02/2023. GGT 108, AST elevated at 67 with ALT 32 and alkaline phosphatase 185 on 01/17/2024. GGT 216 on 02/10/2024. GGT 129, AST 42, ALT 19, alkaline phosphatase 57 on 09/03/2024. Welcome to Medicare preventive visit BMI 20.0-20.9, adult At moderate risk for fall Hypomagnesemia Recurrent syncope Tachycardia (01/29/22) EKG 01/29/2022 with sinus tachycardia with heart rate [address] T wave changes, cannot rule out inferior IN. Echocardiogram 01/31/2022 with ejection fraction 60-65%, unremarkable except for tachycardia heart rate 122. Normal thyroid function with TSH 1.23, free T4 0.9, T3 total 102 on 03/02/2023. Syncope (~01/2022) EEG 02/01/2022 normal. Carotid Doppler study unremarkable 01/30/2022 . Nocturia PSA normal at 2.31 on 05/25/2022. Diabetic neuropathy associated with type 1 diabetes mellitus Chronic thoracic back pain On prescription opioids. Mild intermittent asthma in adult without complication Situational anxiety Insomnia Chronic depression Julissa hereditary optic neuropathy legally blind. No central vision. Chronic pancreatitis Amylase elevated at 221 with lipase less than 5 on 05/25/2022. amylase 66 with lipase less than 5 on 03/02/2023. Amylase 127 with lipase at 11 on 01/17/2024. Essential (primary) hypertension Uncontrolled type 1 diabetes mellitus with hyperglycemia Glucose 117 with hemoglobin A1c 5.6 and urine microalbumin ratio of 3 on 05/25/2022. Surgical History Surgical History H/O mastectomy 10/26/[address] Pate History of partial colectomy For what sounds like perforated diverticulitis. History of orthopedic surgery Left 5th finger surgery. Bilateral foot surgery. History of cholecystectomy History of tonsillectomy Family History Family History Father Family history of kidney disease Family history of diabetes mellitus in first degree relative Family history of heart disease in male family member before age 55 Patient's father is , Onset Age: 45 Family history of cardiovascular disease Acute myocardial infarction Diabetes mellitus Mother Cerebrovascular accident 10/2017 Cancer Other Diabetes mellitus cousins Sibling Asthma Breast cancer Diagnosed age 59 Social History Social History Social History: Surrogate decision maker: Kiya Ba, sister. Code status: Full code. He would not however want to be on long-term life support. Smoking packs per day: 1 Smoking cigarettes per day: 20.0 Years smoked: 50 Smoking pack-years: 50.00 Smoking status: Former smoker Tobacco type: cigars ( occasional small flavored cigar) Second hand tobacco smoke exposure: Yes Additional smoking assessment comments: Started at age 12 Drinks per week: 3 Alcohol use details: sips qt of braxton whiskey over 3-4 days Substance use: current Substance use type: marijuana Other substance usage details: He grows his own plants at home Last use: daily Do You Feel Safe in your Home?: Yes Lack of Transportation: No Lack of Food: Never True Current Housing: I Have Housing Concerned About Future Housing: No Difficulty Paying Gas/Electric Bills: No Difficulty Paying for Meds: No Currently Unemployed: No Education: High School Diploma/GED Difficulty w/ Childcare or Family Care: No Living arrangements: alone Additional living arrangements comments: The patient lives alone in [place]. Additional occupation/education comments: [employer], now on disability due to vision loss. Spiritual care concerns: No Comments At time of signature, agree with nursing past medical, surgical, social and family history. There is no relevant family history pertinent to the presenting complaint. Exam Const: General: cooperative, healthy appearing, comfortable, no acute distress and well nourished Nutritional Appearance: well nourished Orientation/consciousness: patient oriented x3 Limitations: no limitations HENMT: Head: normal to inspection, normocephalic and atraumatic Ears: hearing grossly normal bilaterally and external ears normal Face/Nose/Sinus: Normal external nose present, normal facial exam and face symmetric Face and sinus: normal facial exam and face symmetric Mouth: Yes lip normal Eyes: General: appearance normal, both eyes and all related structures Alignment and Position: alignment normal and position normal Periorbital: periorbital findings normal Eyelids: eyelids normal Pupils: Equal, round and reactive pupils present EOM: EOMs intact bilaterally Neck: Neck: normal visual inspection, full ROM and supple Chest: Chest palpation & inspection: normal inspection of the chest Resp: Effort & Inspection: normal respiratory effort and able to speak in complete sentences Auscultation: clear to auscultation bilaterally Cardio: Rate: regular rate Rhythm: regular rhythm Heart sounds: S1 normal heart sound present and S2 normal heart sound present GI: Inspection: normal to inspection Skin: General skin exam: normal color and no rashes or lesions noted Neuro: General: patient oriented x3 and moves all extremities Cranial nerves: Yes Equal, round and reactive pupils present Speech: normal speech Gait exam (Neuro): Normal gait present Extrem: General: normal to inspection and no edema Left upper extremity: wrist tenderness of the dorsal wrist, swelling of the dorsal wrist, abnormal ROM pain with active ROM with extension, with flexion, with ABduction and with ADduction, warmth of the dorsal wrist and radial pulse present; no deformity and hand normal capillary refill, neuromotor exam normal Details: thumb opposition normal, thumb IP flexion normal, thumb ADduction normal and fingers 2-5 ABduction normal, neuromotor exam abnormal Details: wrist extension abnormal Details: limited by pain, neurosensory exam normal, tendon exam normal Location: of all digits Details: extensor tendon, flexor digitorum profundus and flexor digitorum superficialis, tenderness of the dorsal hand, vascular exam radial pulse present and normal capillary refill, normal ROM of fingers, warmth of the dorsal hand, swelling of the dorsal hand and puncture wound (5 cat bite wounds) Hand/finger images:  1. 5 puncture wounds from cat bite with surrounding erythema, warmth and swelling Psych: Appearance: grossly normal and well kempt Mental Status: mental status grossly normal Speech and movement: Normal speech and movement present Affect: normal affect Attitude: cooperative Thought process: Normal thought process present Course Course Emergency Course: Patient is aware of diagnosis, understands and agrees to treatment plan. Anticipatory guidance given. Patient agrees to follow-up as directed and is aware of reasons to seek care at the emergency department. Portions of this record may have been created with voice recognition software Level of Care: Express Care Visit Vital Signs Vital signs: Vital Signs Temperature 37.2 C 12/25/24 17:35 Pulse Rate 113 H 12/25/24 17:35 Respiratory Rate 18 12/25/24 17:35 Blood Pressure 138/82 12/25/24 17:35 Pulse Oximetry 100 12/25/24 17:35 Oxygen Delivery Room Air 12/25/24 17:35 Temperature 37.2 C 12/25/24 17:35 Pulse Rate 113 H 12/25/24 17:35 Respiratory Rate 18 12/25/24 17:35 Blood Pressure 138/82 12/25/24 17:35 Pulse Oximetry 100 12/25/24 17:35 Oxygen Delivery Room Air 12/25/24 17:35 Reviewed MDM - Extremity Injury (Upper) MDM Narrative Medical decision making narrative: Patient coming in for left wrist pain and decreased range of motion due to swelling and pain. X-ray reassuring of no fracture, no a strep. Tetanus shot updated and antibiotics given for infection. Discussed red flag symptoms to return to the ER for worsening infection. PMS is grossly intact Pt well hydrated appearing, in no respiratory distress, hemodynamically stable. Recommend supportive care. The patient is stable at time of discharge the clinical impression was discussed and the patient was given the opportunity to ask questions, which were addressed as completely as possible given the information available at present. Anticipatory guidance and return to care precautions were discussed and the importance of primary care follow-up was stressed and encouraged. The patient voiced understanding of the plan, indications to return, and the need for follow-up. Exam findings show no acute concerns or changes Patient is appropriate for outpatient treatment and follow-up. Differential Diagnosis Differential diagnosis: Likely sprain and strain of wrist, fracture of wrist and other (Cat bite, cellulitis) Imaging Data Radiologist's impression: HISTORY: fall, cat bite COMPARISON: None TECHNIQUE: 3 views of the left wrist were performed. FINDINGS: No acute fracture is identified. The carpal arcs are intact. Mild radiocarpal joint space narrowing with sclerosis of the distal radius is present. Degenerative disease is present within the first carpometacarpal joint space. The remaining visualized joint spaces are otherwise preserved. 1.6 mm density projects over the palmar surface of the hyperthenar eminence. Bone mineralization is age-appropriate. No significant soft tissue swelling is noted. IMPRESSION: Degenerative disease, without acute fracture. Radiopaque foreign body projecting over the hypothenar eminence along the palmar surface, as detailed above. Discharge Plan Discharge Clinical Impression: Cat bite, Cellulitis, Left wrist sprain Patient Disposition: Home, Self-Care Condition: Stable Instructions: Animal Bite (ED), Wrist Sprain (ED) Additional Instructions: Xray showed no fracture. Minimize activities that aggravate the condition The RICE protocol. Follow the RICE protocol as soon as possible after your injury:. Ice should be immediately applied to keep the swelling down. It can be used for 20 to 30 minutes, three or four times daily. Do not apply ice directly to your skin. Compression dressings, bandages or radha-wraps will immobilize and support your injured wrist. Elevate your Wrist above the level of your heart as often as possible during the first 48 hours. Medication: Nonsteroidal anti-inflammatory drugs (NSAIDs) such as ibuprofen and naproxen can help control pain and swelling. Because they improve function by both reducing swelling and controlling pain, they are a better option for mild sprains than narcotic pain medicines. Please schedule a follow-up visit with your personal physician for further evaluation and treatment within 1week OR If your symptoms persist, change or worsen significantly before you can contact your personal physician then please, without delay, go to the emergency department for further evaluation. Clean with soap and water only; Avoid using alcohol and peroxide. Keep covered during the day. Use Bactroban antibiotic daily. Elevate the affected area if possible Alternate Tylenol/ibuprofen for as needed for pain Acetaminophen(Tylenol) 650-1000mg every 4-6hours with max of 4000mg/day. Nonsteroidal anti-inflammatory agent (NSAIDs-ibuprofen): 400mg every 4-6hours with max 2400mg/day 8 AM: Tylenol 11 AM: Ibuprofen 2 PM: Tylenol 5 PM: Ibuprofen 8 PM: Tylenol 11 PM: Ibuprofen 2 AM: Tylenol 5 AM: Ibuprofen Apply moist heat 3-4 times daily for 10-15 minutes. Take antibiotic until it's gone. Please schedule a follow up visit with your personal physician for further evaluation and treatment within 3-5days OR if your symptoms persist, change or worsen significantly before you can contact your personal physician then please, without delay, go to the emergency department for further evaluation. If you experience any worsening redness, swelling, streaking (red lines), fever or chills please go to the ER Patient Language: Jamaican Prescriptions: New amoxicillin-pot clavulanate 875-125 mg tablet 1 tablet PO Q12H 10 Days Qty: 20 0RF No Action insulin glargine [Lantus Solostar U-100 Insulin] 100 unit/mL (3 mL) insulin pen 3 unit subcut QPM Qty: 15 0RF insulin lispro [Humalog KwikPen Insulin] 100 unit/mL insulin pen 3 unit subcut TID MDD 9 units Qty: 15 1RF Gvoke HypoPen 2-Pack 1 mg/0.2 mL auto-injector 1 mg subcut ONCE Qty: 2 0RF Rx Instructions: as a single dose; may repeat once after 15 minutes if no response glucose 4 gram tablet,chewable 16 g PO Q15M PRN (Reason: hypoglycemia) Qty: 360 0RF Rx Instructions: until symptoms of low blood sugar are controlled potassium chloride 20 mEq tablet extended release 20 meq PO . q.a.m. Qty: 30 11RF fluticasone propionate [Flonase Allergy Relief] 50 mcg/actuation spray,suspension 1 spray intranasal BID Qty: 16 11RF Rx Instructions: administer into each nostril (DME) FreeStyle Zenobia 3 Sensor Device See Rx Instructions .Route Qty: 9 0RF Rx Instructions: every 10 days pravastatin 10 mg tablet 10 mg PO DAILY Qty: 90 2RF magnesium oxide 250 mg magnesium tablet 500 mg PO BID Patient Comments: adcn-dge-mldhqfi zolpidem [Ambien] 10 mg tablet 10 mg PO QHS PRN (Reason: insomnia) Qty: 90 1RF Rx Instructions: take 1/2 or 1 tablet each night only as needed insomnia escitalopram oxalate [Lexapro] 10 mg tablet 10 mg PO HS Qty: 90 3RF amitriptyline 25 mg tablet 12.5 mg PO QHS Qty: 45 3RF pantoprazole 40 mg tablet,delayed release (DR/EC) 40 mg PO BID Qty: 180 3RF hydrocodone-acetaminophen 7.5-325 mg tablet 1 tablet PO Q4H PRN (Reason: pain) Qty: 120 0RF Follow-up/Referrals: Artemio Park MD [Primary Care Provider] - 3 Days Time of Disposition: 18:21
[2024-12-25] MEDS: TETANUS,DIPHTHERIA,AC PERTUSSIS ADULT (0.5 ML) BOOSTRIX IM (17:59)
== END 2024-12-25 18:25 | disposition home or self-care (01) ==
PROVIDERS: Emergency Provider Nurse Practitioner Family; PCP Family Medicine
DX: S61.432A Puncture wound without foreign body of left hand, initial encounter (principal); L03.114 Cellulitis of left upper limb; W55.01XA Bitten by cat, initial encounter; S63.502A Unspecified sprain of left wrist, initial encounter; W19.XXXA Unspecified fall, initial encounter; Z23 Encounter for immunization; K22.70 Barrett's esophagus without dysplasia; E10.40 Type 1 diabetes mellitus with diabetic neuropathy, unspecified; Z79.4 Long term (current) use of insulin; J45.909 Unspecified asthma, uncomplicated; H54.8 Legal blindness, as defined in USA; I10 Essential (primary) hypertension; F12.90 Cannabis use, unspecified, uncomplicated; Z72.0 Tobacco use
CPT/HCPCS: 73110; 90471; 90715; 99213; G0463

== ENCOUNTER 2025-06-18 16:09 | Emergency (ER) | payer MEDICARE, SELFPAY ==
--- NOTE | ~2025-06-18 | CT_ITS ---
EXAMINATION: CTA chest DATE: 06/18/2025 18:11 CDT INDICATION: Chest pain TECHNIQUE: Computed tomographic angiography (CTA) of the chest was performed with 100 mL Omnipaque-35 0 intravenous contrast. The dose-length product was 197.90 mGy-cm. Maximum intensity projection 3D-re constructions of the aorta and other arteries were constructed by the technologist on a separate work station. COMPARISON: None. Reference was made to plain film evaluation of the right ribs dated 05/01/2023 and FINDINGS/OBSERVATIONS: PULMONARY ARTERIES: No filling defect is identified within the main or proximal pulmonary artery. The main pulmonary artery is not enlarged. THORACIC AORTA: No aneurysmal dilatation or dissection is present. The great vessels are intact LUNGS: Panlobular emphysematous disease with bleb formation along the anterior medial left upper lobe . Pleural thickening adjacent to possible recurrent injury within the right posterior 10th and 11th rib s with adjacent compressive atelectasis. MEDIASTINUM: No morphologically suspicious or pathologically enlarged lymph nodes are identified with in the mediastinum or bilateral axilla. BONES OF THE CHEST: Prior fracture deformity within the ninth through 11th ribs along the posterior and lateral margins Oblique lucency within the right posterior 10th and 11th ribs, adjacent to prior fracture deformity f or which additional trauma is suspected and for which clinical correlation is needed. No significant degenerative disease. HEART: The heart is of normal size, without pericardial effusion. UPPER ABDOMEN: Bulky calcifications within the pancreas, unchanged from prior. The gallbladder is absent. Fatty infiltration of the liver. IMPRESSION: No pulmonary embolus. No thoracic aortic dissection. Additional subacute trauma is suspected along the right posterior 10th and 11th ribs with underlying pleural thickening and adjacent atelectasis, as detailed above, for which clinical correlation is nee ded. Reviewed, dictated and finalized at location A. IMPRESSION: No pulmonary embolus. No thoracic aortic dissection. Additional subacute trauma is suspected along the right posterior 10th and 11th ribs with underlying pleural thickening and adjacent atelectasis, as detailed above, for which clinical correlation is needed.
--- NOTE | ~2025-06-18 | XR_ITS ---
CHEST RADIOGRAPH, PA AND LATERAL CLINICAL HISTORY: CP X 2 DAYS WITH INSPIRATION . COMPARISON: 01/30/2022 TECHNIQUE: PA and lateral views of the chest. FINDINGS The cardiomediastinal silhouette is unremarkable. The lungs are clear. IMPRESSION: No focal infiltrate or effusion. Reviewed, dictated and finalized at location A.
--- NOTE | 2025-06-18 16:11 | ECG_ITS ---
Test Date: 2025-06-18 16:17:51 Measurements Intervals [place] Rate: 117 P: 66 HI: 128 QRS: 68 QRSD: 84 T: 75 QT: 297 QTc: 415 Interpretive Statements SINUS TACHYCARDIA ANTEROSEPTAL INFARCT, AGE INDETERMINATE BASELINE ARTIFACT- I, II, III, AVR, AVL, AVF ABNORMAL ECG No previous ECG available for comparison Electronically Signed On 06-18-2025 18:15:06 CDT by Kareem Morrell D.O.
--- OUTSIDE RECORDS SUMMARY | 2025-06-18 16:12 | XMS_ITS | Continuity of Care Document ---
Author Organization [facility] Address [address] [place] [address] [address] [place] [address] Phone Care Team Providers Care Service Center Supervisor Name Role Phone Bob Sanchez MD Unavailable Unavailable Allergies, Adverse Reactions, Alerts Substance Reaction Status Criticality No Known Allergies Active No Inform ation Medications Medication Instructions Dosage Effective Dates (start - stop) Status Comments Chama 7.5 mg-325 mg tablet take 1 tablet [...] Diagnoses Date Provider Providers Copied on Encounter [facility], [address], [place], [place], [id number], [place] tel:[phone] SEC Kashif Odell No Information Sep-2 - 0 Daniel Rojas. [address] [facility], [address], [place], [place], [id number], . tel:[phone] Referring Provider: Bob Lopez, [address], [place], [address] . tel:[phone] [facility], [address] [place] [address] [address], [place], [place], [id number], tel:[phone] SEC Kashif Erickson No Information Sep-0 3-202 0 Daniel Rojas. [address] [facility], [place], [id number], . tel:[phone] Referring Provider: Bob Lopez, [address] [facility] [address], [place], [address] . tel:[phone] Office/outpa tient Visit, [facility], [address] [place] [address] [address], [place], [place], [id number], tel:[phone] SEC [place] Professional Cataract evaluation (chief complaint) Age-related nuclear cataract, bilateralType 2 diabetes mellitus without complications Decreased peripheral vision of both eyes Oct-0 4-201 9 Daniel Rojas. [address] [facility], [address] [place], [id number], . tel:[phone] Referring Provider: Bob Lopez, [address] [facility] [address], [place], [address] . tel:[phone] [facility], [address] [place] [address] [address], [place], [place], [id number], [place] tel:[phone] SEC [place] Professional Cataract evaluation (chief complaint) Age-related nuclear cataract, bilateralPupi llary membrane of right eyeType 2 diabetes mellitus without complications Sep-0 6-201 9 Daniel Rojas. [address] [facility], [facility] [place], [id number], [place]. tel:[phone] Referring Provider: Bob Lopez, [address] [facility] [address], [place], [address] . tel:[phone] Family History Family Member Type Diagnosis Age At Onset Father Problem (finding) Diabetes mellitus Payers Payer name Insurance type Covered democrat ID Authoriza tion(s) No Information Social History Type Description Quantity Date Captured Comments Sex Male Smoking Status No Information Chief Complaint And Reason For Visit No Information Reason For Referral Reason For Referral No Information Plan Of Treatment Date Type Action Status Goal Tobacco cessation counseling completed Goal Tobacco cessation counseling completed Referral Referred To: Brandie MELVIN, [place] [address] [facility]
[place], [phone] Ordered: Referrals: Ophthalmology. [place] Diego MD. Evaluate [...] recently seen Dr. Diego at [facility] and OK'd for surgery. Patient is a [...]
--- OUTSIDE RECORDS SUMMARY | 2025-06-18 16:12 | XMS_ITS | Clinical Summary ---
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
[2025-06-18 16:17] VITALS: BP 118/94; PULSE 120; RESP 18; TEMP 36.7; O2SAT 97
[2025-06-18 16:27] LABS: Hematocrit 45.7 % (42.0-52.0); Hemoglobin 15.2 g/dL (14.0-18.0); Immature Granulocyte Percent A 2.6 % (0-0.5); Lymphocytes Absolute Auto 2.24 K/mm3 (0.9-3.2); Mean Corpuscular HGB Conc 33.3 g/dl (32-36); Mean Corpuscular Hemoglobin 34.1 pg (26-34); Mean Corpuscular Volume 102.5 fl (80-100); Nucleated Red Blood Cells Absolute Auto 0.000 K/mm3 (0.0-0.012); Nucleated Red Blood Cells Perc 0.0 % (0.0-0.2); Platelet Count Result 219 k/mm3 (150-375); Red Blood Count 4.46 M/mm3 (4.6-6.20); White Blood Count 13.4 K/mm3 (4.5-10.0)
[2025-06-18 16:37] LABS: Alanine Aminotransferase 89 U/L (6-50); Albumin Level 4.6 g/dL (3.5-5.1); Alkaline Phosphatase 223 U/L (38-126); Anion Gap 18 mmol/L (4-12); Aspartate Amino Transferase 167 U/L (17-59); Bilirubin,Total 1.2 mg/dL (0.2-1.3); Blood Urea Nitrogen 8 mg/dL (9-20); Calcium 9.7 mg/dL (8.4-10.2); Carbon Dioxide 18 mmol/L (22-30); Chloride 100 mmol/L (98-107); Estimated CRCL calculation 81 ml/min; Estimated Glomerular Filt Rate > 60; Glucose 136 mg/dL (65-110); Potassium 4.6 mmol/L (3.4-5.0); Sodium 136 mmol/L (137-145); Total Protein 8.1 g/dL (6.3-8.2)
[2025-06-18 16:44] LABS: INR 1.0; Partial Thromboplastin Time 29.2 Seconds (22.3-36.8); Prothrombin Time 12.7 Seconds (11.1-14.7)
[2025-06-18 16:49] LABS: Troponin I < 0.012 ng/mL (0.000-0.034)
--- OUTSIDE RECORDS SUMMARY | 2025-06-18 16:49 | XMS_ITS | Clinical Summary ---
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
--- OUTSIDE RECORDS SUMMARY | 2025-06-18 16:49 | XMS_ITS | Continuity of Care Document ---
Author Organization [facility] [place] [address] [place] [address] [address] [place] [address] Phone Care Team Providers Care Behavioral Psychologist Name Role Phone Bob Sanchez MD Unavailable Unavailable Allergies, Adverse Reactions, Alerts Substance Reaction Status Criticality No Known Allergies Active No Inform ation Medications Medication Instructions Dosage Effective Dates (start - stop) Status Comments Walsh 7.5 mg-325 mg tablet take 1 tablet [...] Diagnoses Date Provider Providers Copied on Encounter [facility], [address], [place], [place], [id number], [place] tel:[phone] SEC Kashif Odell No Information Sep-2 - 0 Daniel Rojas. [address], [address], [place], [place], [id number], . tel:[phone] Referring Provider: Bob Lopez, [address], [place], [address] . tel:[phone] [facility], [address] [place] [address] [address], [place], [place], [id number], tel:[phone] SEC Kashif Erickson No Information Sep-0 3-202 0 Daniel Rojas. [address] [facility], [address], [place], [id number], . tel:[phone] Referring Provider: Bob Lopez, [address] [place], [address] . tel:[phone] Office/outpa tient Visit, [facility], [address] [place] [address] [address], [place], [place], [id number], tel:[phone] SEC [place] Professional Cataract evaluation (chief complaint) Age-related nuclear cataract, bilateralType 2 diabetes mellitus without complications Decreased peripheral vision of both eyes Oct-0 4-201 9 Daniel Rojas. [address], [address], [place], [id number], . tel:[phone] Referring Provider: Bob Lopez, [address], [place], [address] . tel:[phone] [facility], [address] [place] [address] [address], [place], [place], [id number], [place] tel:[phone] SEC [place] Professional Cataract evaluation (chief complaint) Age-related nuclear cataract, bilateralPupi llary membrane of right eyeType 2 diabetes mellitus without complications Sep-0 6-201 9 Daniel Rojas. [address] [facility], [facility] [place] [place], [id number], [place]. tel:[phone] Referring Provider: Bob Lopez, [address] [facility] [address], [place], [address] . tel:[phone] Family History Family Member Type Diagnosis Age [...] Referral Referred To: Brandie MELVIN, [place] [address] [facility]
[place], [phone] Ordered: Referrals: Ophthalmology. Quincy Diego MD. Evaluate [...] signs. Patient recently seen Dr. Diego at [facility] and OK'd for surgery. Patient is a [...]
--- NOTE | 2025-06-18 17:19 | ED_ITS ---
HPI - Chest Pain General Chief Complaint: Chest Pain <Dave Hong MD - Last Filed: 06/18/25 17:51> Stated Complaint: Chest pain <Dave Hong MD - Last Filed: 06/18/25 17:51> Time Seen by Provider: 06/18/25 16:41 <Dave Hong MD - Last Filed: 06/18/25 17:51> History of Present Illness HPI narrative: Patient is a 64-year-old male who presents ER with chest pain. Ongoing over last couple days. Sharp and radiates into the middle of his back. Intermittent in nature. Unsure what provokes the discomfort. Cannot identify alleviating factors. Currently having some acid reflux symptoms. Unsure pain provoked his discomfort. He has had a cholecystectomy. No fevers or chills or sweats. <Dave Hong MD - Last Filed: 06/18/25 17:51> Related Data Home Medications: Home Medications ?Medication ?Instructions ?Recorded ?Confirmed ?Last Taken ?Type magnesium oxide 500 mg PO BID 02/12/24 05/19/25 10/28/24 History <Dave Hong MD - Last Filed: 06/18/25 17:51> Allergies/Adverse Reactions: Allergies Allergy/AdvReac Type Severity Reaction Status Date / Time No Known Allergies Allergy Verified 06/18/25 16:21 <Dave Hong MD - Last Filed: 06/18/25 17:51> [facility] Past Medical History Medical History: Medical History Tachycardia (01/29/22) EKG 01/29/2022 with sinus tachycardia with heart rate [address] T wave changes, cannot rule out inferior [place]. Echocardiogram 01/31/2022 with ejection fraction 60-65%, unremarkable except for tachycardia heart rate 122. Normal thyroid function with TSH 1.23, free T4 0.9, T3 total 102 on 03/02/2023. Evans's esophagus with esophagitis (10/29/24) EGD with Evans's esophagitis without dysplasia on 10/29/2024 with gastritis and duodenitis. BMI < 18.5 Subareolar gynecomastia in male (~2023) Occult GI bleeding (~09/14/24) stool positive for occult blood 09/14/2024 Breast mass in male (~02/2024) left retroareolar breast mass 3 cm Chest pain Lexiscan stress test with no evidence of ischemia 03/18/2024. Vitamin D insufficiency (01/17/24) level low at 12.8 with goal greater than 30 on 01/17/2024. Low magnesium level (01/17/24) level low at 3.0 on 01/17/2024. Magnesium 1.4 on 02/10/2024. Magnesium 1.6 on 09/03/2024. Hypokalemia (01/17/24) potassium 3.0 with magnesium 1.2 on 01/17/2024. Potassium 4.1 on 02/10/2024. Potassium 3.3 on 09/03/2024. Encounter for prostate cancer screening PSA normal at 2.31 on 05/25/2022. PSA 2.4 on 09/03/2024. Diabetes mellitus, insulin dependent (IDDM), controlled fasting glucose 117 with hemoglobin A1c 5.6 on 05/25/2022. fasting glucose 127 with hemoglobin A1c 6.3 on 03/02/2023. Elevated liver enzymes (05/25/22) GGT 346, AST 61, ALT 51, alkaline phosphatase 150 on 05/25/2022. GGT 205, AST 42, ALT 37, alkaline phosphatase 147 on 03/02/2023. GGT 108, AST elevated at 67 with ALT 32 and alkaline phosphatase 185 on 01/17/2024. GGT 216 on 02/10/2024. GGT 129, AST 42, ALT 19, alkaline phosphatase 57 on 09/03/2024. [place] to Medicare preventive visit BMI 20.0-20.9, adult At moderate risk for fall Hypomagnesemia Recurrent syncope Syncope (~01/2022) EEG 02/01/2022 normal. Carotid Doppler study unremarkable 01/30/2022 . Nocturia PSA normal at 2.31 on 05/25/2022. Diabetic neuropathy associated with type 1 diabetes mellitus Chronic thoracic back pain On prescription opioids. Mild intermittent asthma in adult without complication Situational anxiety Insomnia Chronic depression Julissa hereditary optic neuropathy legally blind. No central vision. Chronic pancreatitis Amylase elevated at 221 with lipase less than 5 on 05/25/2022. amylase 66 with lipase less than 5 on 03/02/2023. Amylase 127 with lipase at 11 on 01/17/2024. Essential (primary) hypertension Uncontrolled type 1 diabetes mellitus with hyperglycemia Glucose 117 with hemoglobin A1c 5.6 and urine microalbumin ratio of 3 on 05/25/2022. <Dave Hong MD - Last Filed: 06/18/25 17:51> Surgical History Surgical History: Surgical History H/O mastectomy 10/26/[address] Pate History of partial colectomy For what sounds like perforated diverticulitis. History of orthopedic surgery Left 5th finger surgery. Bilateral foot surgery. History of cholecystectomy History of tonsillectomy <Dave Hong MD - Last Filed: 06/18/25 17:51> Family History Family History: Family History Father Family history of kidney disease Family history of diabetes mellitus in first degree relative Family history of heart disease in male family member before age 55 Patient's father is , Onset Age: 45 Family history of cardiovascular disease Acute myocardial infarction Diabetes mellitus Mother Cerebrovascular accident 10/2017 Cancer Other Diabetes mellitus cousins Sibling Asthma Breast cancer Diagnosed age 59 <Dave Hong MD - Last Filed: 06/18/25 17:51> Social History Social History: Social History Social History: Surrogate decision maker: Kiya Ba, sister. Code status: Full code. He would not however want to be on long-term life support. Smoking packs per day: 1 Smoking cigarettes per day: 20.0 Years smoked: 50 Smoking pack-years: 50.00 Smoking status: Former smoker Tobacco type: cigars ( occasional small flavored cigar) Second hand tobacco smoke exposure: Yes Additional smoking assessment comments: Started at age 12 Drinks per week: 3 Alcohol use details: sips qt of braxton whiskey over 3-4 days Substance use: current Substance use type: marijuana Other substance usage details: He grows his own plants at home Last use: daily Do You Feel Safe in your Home?: Yes Lack of Transportation: No Lack of Food: Never True Current Housing: I Have Housing Concerned About Future Housing: No Difficulty Paying Gas/Electric Bills: No Difficulty Paying for Meds: No Currently Unemployed: No Education: High School Diploma/GED Difficulty w/ Childcare or Family Care: No Living arrangements: alone Additional living arrangements comments: The patient lives alone in [place]. 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 Spiritual care concerns: No <Dave Hong MD - Last Filed: 06/18/25 17:51> Exam 2 Narrative: GENERAL: Well-appearing, well-nourished, and in no acute distress. HEAD: Normocephalic, atraumatic. ENT: Mucous membranes moist. NECK: Supple. CHEST: Clear to auscultation. No respiratory distress. HEART: Tachycardic and regular. Normal peripheral pulses. ABDOMEN: Soft, nontender, nondistended EXTREMITIES: Normal range of motion. No edema. SKIN: Warm, dry, no rash. NEURO: Alert and oriented x3. PSYCH: Normal mood and affect. <Dave Hong MD - Last Filed: 06/18/25 17:51> Course Course Emergency Course: Mild transaminitis. Gallbladder removed. Symptoms may be referred from reflux. Troponin negative. CTA of the chest pending. HITESH to Dr. Bernard. < Dave Hong MD - Last Filed: 06/18/25 17:51> Mild transaminitis. Gallbladder removed. Symptoms may be referred from reflux. Troponin negative. CTA of the chest pending. HITESH to Dr. Bernard. Patient signed out pending completion of workup including CT angiography and delta troponin. These were independently reviewed delta troponin is negative and CT angiography negative for acute vascular insult or any pulmonary embolism. No aortic dissection. Previous traumatic injuries to the ribs on the posterior right 11th and 10th with underlying adjacent atelectasis but no acute pathology or new fracture. Patient's vital signs all normalized with treatment regimen here. Unremarkable workup and safe for discharge home with regular primary care provider follow-up and return precautions. <Brett Bernard MD - Last Filed: 06/19/25 06:41> Vital Signs Vital signs: Vital Signs Temperature 36.7 C 06/18/25 16:17 Pulse Rate 120 H 06/18/25 16:17 Respiratory Rate 18 06/18/25 16:17 Blood Pressure 118/94 H 06/18/25 16:17 Pulse Oximetry 97 06/18/25 16:17 Oxygen Delivery Room Air 06/18/25 16:17 Temperature 36.9 C 06/18/25 20:26 Pulse Rate 83 06/18/25 20:26 Respiratory Rate 18 06/18/25 20:26 Blood Pressure 138/84 06/18/25 20:26 Pulse Oximetry 98 06/18/25 20:26 Oxygen Delivery Room Air 06/18/25 16:17 <Dave Hong MD - Last Filed: 06/18/25 17:51> Vital Signs Temperature 36.7 C 06/18/25 16:17 Pulse Rate 120 H 06/18/25 16:17 Respiratory Rate 18 06/18/25 16:17 Blood Pressure 118/94 H 06/18/25 16:17 Pulse Oximetry 97 06/18/25 16:17 Oxygen Delivery Room Air 06/18/25 16:17 Temperature 36.9 C 06/18/25 20:26 Pulse Rate 83 06/18/25 20:26 Respiratory Rate 18 06/18/25 20:26 Blood Pressure 138/84 06/18/25 20:26 Pulse Oximetry 98 06/18/25 20:26 Oxygen Delivery Room Air 06/18/25 16:17 <Brett Bernard MD - Last Filed: 06/19/25 06:41> MDM - Chest Pain Lab Data Result diagrams: 06/18/25 16:21 06/18/25 16:21 <Dave Hong MD - Last Filed: 06/18/25 17:51> Labs: Lab Results 06/18/25 06/18/25 Range/Units 16:21 19:25 WBC 13.4 H (4.5-10.0) K/mm3 RBC 4.46 L (4.6-6.20) M/mm3 Hgb 15.2 (14.0-18.0) g/dL Hct 45.7 (42.0-52.0) % MCV 102.5 H (80-100) fl MCH 34.1 H (26-34) pg MCHC 33.3 (32-36) g/dl RDW 14.0 (11.5-14.5) % Plt Count 219 (150-375) k/mm3 MPV 9.5 (7.4-10.4) fl Immature Gran % (Auto) 2.6 H (0-0.5) % Neut % (Auto) 73.0 (45.5-73.1) % Lymph % (Auto) 16.7 L (18.3-44.2) % Limestone % (Auto) 6.5 (2.6-8.5) % Eos % (Auto) 0.5 (0-4.4) % Baso % (Auto) 0.7 (0.2-1.2) % Lymph # (Auto) 2.24 (0.9-3.2) K/mm3 Limestone # (Auto) 0.9 H (0.1-0.6) K/mm3 Eos # (Auto) 0.1 (0-0.3) K/mm3 Baso # (Auto) 0.1 (0.0-0.1) K/mm3 Abs Immat Gran (auto) 0.35 H (0.00-0.031) K/mm3 Absolute Neuts (auto) 9.8 H (1.3-6.7) K/mm3 Absolute Nucleated RBC 0.000 (0.0-0.012) K/mm3 Nucleated RBC % 0.0 (0.0-0.2) % PT 12.7 (11.1-14.7) Seconds INR 1.0 APTT 29.2 (22.3-36.8) Seconds Sodium 136 L (137-145) mmol/L Potassium 4.6 (3.4-5.0) mmol/L Chloride 100 (98-107) mmol/L Carbon Dioxide 18 L (22-30) mmol/L Anion Gap 18 H (4-12) mmol/L BUN 8 L (9-20) mg/dL Creatinine 0.69 L (0.7-1.3) mg/dL Estim Creat Clear Calc 81 ml/min Estimated GFR > 60 (59 - ) Glucose 136 H (65-110) mg/dL Calcium 9.7 (8.4-10.2) mg/dL Total Bilirubin 1.2 (0.2-1.3) mg/dL AST 167 H (17-59) U/L ALT 89 H (6-50) U/L Alkaline Phosphatase 223 H (38-126) U/L Troponin I < 0.012 < 0.012 (0.000-0.034) ng/mL Total Protein 8.1 (6.3-8.2) g/dL Albumin 4.6 (3.5-5.1) g/dL Lipase < 10 L (23-300) U/L <Dave Hong MD - Last Filed: 06/18/25 17:51> Lab Results 06/18/25 06/18/25 Range/Units 16:21 19:25 WBC 13.4 H (4.5-10.0) K/mm3 RBC 4.46 L (4.6-6.20) M/mm3 Hgb 15.2 (14.0-18.0) g/dL Hct 45.7 (42.0-52.0) % MCV 102.5 H (80-100) fl MCH 34.1 H (26-34) pg MCHC 33.3 (32-36) g/dl RDW 14.0 (11.5-14.5) % Plt Count 219 (150-375) k/mm3 MPV 9.5 (7.4-10.4) fl Immature Gran % (Auto) 2.6 H (0-0.5) % Neut % (Auto) 73.0 (45.5-73.1) % Lymph % (Auto) 16.7 L (18.3-44.2) % Limestone % (Auto) 6.5 (2.6-8.5) % Eos % (Auto) 0.5 (0-4.4) % Baso % (Auto) 0.7 (0.2-1.2) % Lymph # (Auto) 2.24 (0.9-3.2) K/mm3 [place] # (Auto) 0.9 H (0.1-0.6) K/mm3 Eos # (Auto) 0.1 (0-0.3) K/mm3 Baso # (Auto) 0.1 (0.0-0.1) K/mm3 Abs Immat Gran (auto) 0.35 H (0.00-0.031) K/mm3 Absolute Neuts (auto) 9.8 H (1.3-6.7) K/mm3 Absolute Nucleated RBC 0.000 (0.0-0.012) K/mm3 Nucleated RBC % 0.0 (0.0-0.2) % PT 12.7 (11.1-14.7) Seconds INR 1.0 APTT 29.2 (22.3-36.8) Seconds Sodium 136 L (137-145) mmol/L Potassium 4.6 (3.4-5.0) mmol/L Chloride 100 (98-107) mmol/L Carbon Dioxide 18 L (22-30) mmol/L Anion Gap 18 H (4-12) mmol/L BUN 8 L (9-20) mg/dL Creatinine 0.69 L (0.7-1.3) mg/dL Estim Creat Clear Calc 81 ml/min Estimated GFR > 60 (59 - ) Glucose 136 H (65-110) mg/dL Calcium 9.7 (8.4-10.2) mg/dL Total Bilirubin 1.2 (0.2-1.3) mg/dL AST 167 H (17-59) U/L ALT 89 H (6-50) U/L Alkaline Phosphatase 223 H (38-126) U/L Troponin I < 0.012 < 0.012 (0.000-0.034) ng/mL Total Protein 8.1 (6.3-8.2) g/dL Albumin 4.6 (3.5-5.1) g/dL Lipase < 10 L (23-300) U/L <Brett Bernard MD - Last Filed: 06/19/25 06:41> Imaging Data Radiologist's impression: ITS Impressions Chest X-Ray 06/18/25 16:53 IMPRESSION: No focal infiltrate or effusion. <Dave Hong MD - Last Filed: 06/18/25 17:51> ECG Data EKG #1: ECG completion date: 06/18/25 <Dave Hong MD - Last Filed: 06/18/25 17:51> ECG completion time: 16:17 <Dave Hong MD - Last Filed: 06/18/25 17:51> EKG Interpretation: tachycardia (117), sinus rhythm, no ST changes, normal QRS and normal QT <Dave Hong MD - Last Filed: 06/18/25 17:51> Discharge Plan Discharge Clinical Impression: Chest pain, pleuritic <Dave Hong MD - Last Filed: 06/18/25 17:51> Patient Disposition: Home <Dave Hong MD - Last Filed: 06/18/25 17:51> Condition: Stable <Dave Hong MD - Last Filed: 06/18/25 17:51> Instructions: Antibiotic Form <Dave Hong MD - Last Filed: 06/18/25 17:51> Additional Instructions: Your CT scan shows no signs of any cardiac, pulmonary, or vascular issues. No acute abnormalities seen on imaging. Cardiac enzymes are normal. Liver enzymes slightly elevated but around baseline from previous labs. Follow-up with regular primary care provider. Return with any emergent concerns at any time. <Dave Hong MD - Last Filed: 06/18/25 17:51> Patient Language: Turkmen <Dave Hong MD - Last Filed: 06/18/25 17:51> Prescriptions: No Action Gvoke HypoPen 2-Pack 1 mg/0.2 mL auto-injector 1 mg subcut ONCE Qty: 2 0RF Rx Instructions: as a single dose; may repeat once after 15 minutes if no response glucose 4 gram tablet,chewable 16 g PO Q15M PRN (Reason: hypoglycemia) Qty: 360 0RF Rx Instructions: until symptoms of low blood sugar are controlled potassium chloride 20 mEq tablet extended release 20 meq PO . q.a.m. Qty: 30 11RF insulin glargine [Lantus Solostar U-100 Insulin] 100 unit/mL (3 mL) insulin pen 4 unit subcut QPM Qty: 15 0RF insulin lispro [Humalog KwikPen Insulin] 100 unit/mL insulin pen 3 unit subcut TID MDD 12 Qty: 15 1RF fluticasone propionate [Flonase Allergy Relief] 50 mcg/actuation spray,suspension 1 spray intranasal BID Qty: 16 11RF Rx Instructions: administer into each nostril (DME) FreeStyle Zenobia 3 Sensor Device See Rx Instructions .Route Qty: 9 0RF Rx Instructions: every 10 days pravastatin 10 mg tablet 10 mg PO DAILY Qty: 90 2RF zolpidem [Ambien] 10 mg tablet 10 mg PO QHS PRN (Reason: insomnia) Qty: 90 1RF Rx Instructions: take 1/2 or 1 tablet each night only as needed insomnia magnesium oxide 250 mg magnesium tablet 500 mg PO BID Patient Comments: [id number] amitriptyline 25 mg tablet 12.5 mg PO QHS Qty: 45 3RF pantoprazole 40 mg tablet,delayed release (DR/EC) 40 mg PO BID Qty: 180 3RF escitalopram oxalate [Lexapro] 10 mg tablet 10 mg PO HS Qty: 90 3RF Rx Instructions: cuadra pay with HOTEL[employer] $27/90tabs albuterol sulfate [ProAir HFA] 90 mcg/actuation HFA aerosol inhaler 2 inh inhalation Q4H PRN (Reason: shortness of breath or wheezing) Qty: 18 11RF hydrocodone-acetaminophen 7.5-325 mg tablet 1 tablet PO Q4H PRN (Reason: pain) Qty: 120 0RF <Dave Hong MD - Last Filed: 06/18/25 17:51> Follow-up/Referrals: Artemio Park MD [Primary Care Provider] - <Dave Hong MD - Last Filed: 06/18/25 17:51> Time of Disposition: 20:13 <Dave Hong MD - Last Filed: 06/18/25 17:51> 20:13 <Brett Bernard MD - Last Filed: 06/19/25 06:41>
[2025-06-18] MEDS: MORPHINE SULFATE (*CRX) 4 MG/ML INJ IV PUSH (17:47)
[2025-06-18] MEDS: ASPIRIN 81 MG CHEWABLE TABLET 324 MG PO (17:47)
[2025-06-18] MEDS: SODIUM CHLORIDE 0.9% IV 1,000 ML 999 ML IV CONT (17:47)
[2025-06-18 17:57] VITALS: BP 115/80; PULSE 93; RESP 18; O2SAT 95
[2025-06-18 18:07] LABS: Lipase < 10 U/L (23-300)
[2025-06-18 19:04] VITALS: BP 108/70; PULSE 94; RESP 20; O2SAT 98
--- NOTE | 2025-06-18 19:11 | ECG_ITS ---
Test Date: 2025-06-18 19:38:41 Measurements Intervals [place] Rate: 87 P: 65 IA: 162 QRS: 62 QRSD: 80 T: 77 QT: 347 QTc: 419 Interpretive Statements SINUS RHYTHM CONSIDER ANTERIOR INFARCT, AGE INDETERMINATE BASELINE ARTIFACT- I, II, III, AVR, AVL, AVF, V1-V2 ABNORMAL ECG Compared to ECG 06/18/2025 16:17:51 HEART RATE HAS DECREASED Electronically Signed On 06-19-2025 07:28:10 CDT by Kareem Morrell D.O.
[2025-06-18 19:54] LABS: Troponin I < 0.012 ng/mL (0.000-0.034)
[2025-06-18 20:26] VITALS: BP 138/84; PULSE 83; RESP 18; TEMP 36.9; O2SAT 98
== END 2025-06-18 20:27 | disposition home or self-care (01) ==
PROVIDERS: Emergency Provider Emergency Medicine; PCP Family Medicine
DX: R07.81 Pleurodynia (principal); Z79.4 Long term (current) use of insulin; E10.40 Type 1 diabetes mellitus with diabetic neuropathy, unspecified; I10 Essential (primary) hypertension; Z87.891 Personal history of nicotine dependence
CPT/HCPCS: 36415; 71046; 71275; 80053; 83690; 84484; 85025; 85610; 85730; 93005; 96361; 96374; 99284; A9270; J2270; J7030; Q9967

== ENCOUNTER 2025-09-06 08:01 | Outpatient (CLI) | payer MEDICARE, SELFPAY ==
--- OUTSIDE RECORDS SUMMARY | 2025-09-06 08:07 | XMS_ITS | Clinical Summary ---
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) Cataracts, both eyes Presbyopia of both eyes Strabismus 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) 10/06/2019 Julissa hereditary optic neuro ruthie (m.[id number] G>A, tested 08/25/2019) 10/06/2019 Family History Medical [...] on file 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 Gender Identity Not on file Sexual Orientation Not on file Obstetrics History Plan of Treatment Not on file Insurance [facility] HMO/PPO Address: [facility] [address] [place] [address] [employer] Care Teams Pharmaceutical Plant Operator Relationship Specialty Start Date End Date Artemio Park MD [facility] [address] [address] PCP - General Family Medicine 08/14/19 Bob Sanchez MD [address] [place] [id number] Primary Eye Care Provider Ophthalmology 08/25/19 Quincy Dieog MD [address] [place] [id number] Consulting Physician Ophthalmology 08/25/19
[2025-09-06 08:37] LABS: Hematocrit 40.2 % (42.0-52.0); Hemoglobin 13.3 g/dL (14.0-18.0); Immature Granulocyte Percent A 0.9 % (0-0.5); Lymphocytes Absolute Auto 1.73 K/mm3 (0.9-3.2); Mean Corpuscular HGB Conc 33.1 g/dl (32-36); Mean Corpuscular Hemoglobin 34.5 pg (26-34); Mean Corpuscular Volume 104.4 fl (80-100); Nucleated Red Blood Cells Absolute Auto 0.000 K/mm3 (0.0-0.012); Nucleated Red Blood Cells Perc 0.0 % (0.0-0.2); Platelet Count Result 149 k/mm3 (150-375); Red Blood Count 3.85 M/mm3 (4.6-6.20); White Blood Count 7.9 K/mm3 (4.5-10.0)
[2025-09-06 08:59] LABS: Magnesium 1.7 mg/dL (1.6-2.3)
[2025-09-06 09:00] LABS: Alanine Aminotransferase 53 U/L (6-50); Albumin Level 3.9 g/dL (3.5-5.1); Alkaline Phosphatase 152 U/L (38-126); Anion Gap 8 mmol/L (4-12); Aspartate Amino Transferase 74 U/L (17-59); Bilirubin,Total 0.8 mg/dL (0.2-1.3); Blood Urea Nitrogen 6 mg/dL (9-20); Calcium 9.5 mg/dL (8.4-10.2); Carbon Dioxide 27 mmol/L (22-30); Chloride 100 mmol/L (98-107); Cholesterol 124 mg/dL (0-200); Estimated Glomerular Filt Rate > 60; Glucose 123 mg/dL (65-110); HDL Direct 66 mg/dL; Potassium 4.1 mmol/L (3.4-5.0); Sodium 135 mmol/L (137-145); Total Protein 6.8 g/dL (6.3-8.2); Triglycerides 59 mg/dL (<150)
[2025-09-06 09:15] LABS: Free T4 Free Thyroxine 1.32 ng/dL (0.78-2.19)
[2025-09-06 09:36] LABS: Thyroid Stimulating Hormone 2.360 uIU/mL (0.465-4.680)
[2025-09-06 10:10] LABS: MALB Creatinine Ratio 8.5 mg/g (0-30)
[2025-09-11 08:09] LABS: 1,25-Dihydroxy, Vitamin D-2 <10 pg/mL (.); 1,25-Dihydroxy, Vitamin D-3 43 pg/mL (.); Total 1,25-Dihydroxy,Vitamin D 46 pg/mL (.)
== END 2025-09-06 08:02 | disposition home or self-care (01) ==
PROVIDERS: PCP Family Medicine; Visit Provider Internal Medicine
DX: E10.42 Type 1 diabetes mellitus with diabetic polyneuropathy (principal); Z68.1 Body mass index [BMI] 19.9 or less, adult; Z68.20 Body mass index [BMI] 20.0-20.9, adult; R79.0 Abnormal level of blood mineral; K22.70 Barrett's esophagus without dysplasia; K20.90 Esophagitis, unspecified without bleeding
CPT/HCPCS: 36415; 80053; 80061; 82043; 82248; 82652; 83735; 84439; 84443; 85025

== ENCOUNTER 2025-09-09 08:33 | Outpatient (CLI) | payer MEDICARE, SELFPAY ==
--- OUTSIDE RECORDS SUMMARY | 2020-07-31 19:00 | XMS_ITS | Continuity of Care Document ---
Author Organization [facility] Address [id number] [place] [address] [address] [place] [address] Phone Care Team Providers Care Certified Recreational Therapist Name Role Phone Bob Sanchez MD Unavailable Unavailable Allergies, Adverse Reactions, Alerts Substance Reaction Status Criticality No Known Allergies Active No Inform ation Medications Medication Instructions Dosage Effective Dates (start - stop) Status Comments Humalog KwikPen (U-100) Insulin 100 unit/mL subcutaneous inject by subcutaneous route per prescriber's instructions. Insulin dosing requires individualization. 0.00 - Active lisinopril 20 mg tablet take 1 tablet by oral route every day 20 MG - Active [place] 7.5 mg-325 mg tablet take 1 tablet by oral route every 6 hours as needed for pain - Active Procedures Procedure Date Special Reports Or Forms Special Reports Or Forms No Charge GDX Retina No Charge Orbscan No Charge Refraction Office/outpatient Visit, Est No Charge Refraction No Charge Orbscan No Charge GDX Retina Eye Exam, New Patient IOLMaster IOLMaster Advance Directives Directive Yes / No Effective Date File Name No Information Encounters Encounter Description Practice Location Reason(s) For Visit Diagnoses Date Provider Providers Copied on Encounter [facility], [address], [place], [place], [id number], [place] tel:[phone] SEC Kashif Odell No Information Sep-2 - 0 Daniel Rojas. [address] [facility], [address], [place], [place], [id number], . tel:[phone] Referring Provider: Bob Lopez, [address], [place], [address] . tel:[phone] [facility], [address] [place] [address] [address], [place], [place], [id number], tel:[phone] SEC Kashif Erickson No Information Sep-0 3-202 0 Daniel Rojas. [address] [facility], [address] [place], [id number], . tel:[phone] Referring Provider: Bob Lopez, [address] [facility] [facility] [address], [place], [address] . tel:[phone] [place], [facility] [address] [place] [address] [address], [place], [place], [id number], tel:[phone] SEC [place] Professional Cataract evaluation (chief complaint) Age-related nuclear cataract, bilateralType 2 diabetes mellitus without complications Decreased peripheral vision of both eyes Oct-0 4-201 9 Daniel Rojas. [address] [facility], [address] [place], [id number], . tel:[phone] Referring Provider: Bob Lopez, [address] [facility] [address], [place], [address] . tel:[phone] [facility], [address] [place] [address] [address], [place], [place], [id number], [place] tel:[phone] SEC [place] Professional Cataract evaluation (chief complaint) Age-related nuclear cataract, bilateralPupi llary membrane of right eyeType 2 diabetes mellitus without complications Sep-0 6-201 9 Daniel Rojas. [address] [facility], [facility] [place], [id number], [place]. tel:[phone] Referring Provider: Bob Lopez, [address] [facility] [address], [place], [address] . tel:[phone] Family History Family Member Type Diagnosis Age At Onset Father Problem (finding) Diabetes mellitus Payers Payer name Insurance type Covered constitution party ID Authoriza tion(s) No Information Social History Type Description Quantity Date Captured Comments Sex Male Smoking Status No Information Chief Complaint And Reason For Visit No Information Reason For Referral Reason For Referral No Information Plan Of Treatment Date Type Action Status Goal Tobacco cessation counseling completed Goal Tobacco cessation counseling completed Referral Referred To: Brandie MELVIN, [place] [address] [facility]
[place], [phone] Ordered: Referrals: Ophthalmology. Quincy Diego MD. Evaluate and treat ordered Patient Education Cataracts: Care Instruc tions completed Patient Education Cataracts: Care Instruc tions completed History Of Present Illness Encounter Date Complaint History Of Prese nt Illness Cataract evaluation The 59 year old male presents for a cataract evaluation ou. Patient c/o glare around lights at night. Patient is having a hard time seeing the time clock at work. Patient is having a hard time seeing street signs. Patient recently seen Dr. Diego at [facility] and OK'd for surgery. Patient is a Type II diabetic and has not check normally. Cataract evaluation The 58 year old male presents for evaluation of Cataract evaluation in the right eye and left eye. Pt denies any past ocular injuries or Sx, OU. Hx of CAT OD>OS. Pt is IDDM II x 9 yrs, followed by PCP, pt reports BS was 120 yesterday and he doesn't know the number but A1C was great a couple of wks ago. Pt reports he has trouble reading street signs, his time clock, and is bothered by glare from bright lights, OD>OS, even when wearing his gls, x couple mos. Pt reports he doesn't use any gtts and no pain or irritation today, OU. Functional Status Date Functional Assessmen t No Information Instructions Date Instruction Additional Infor mation Impression/Plan Impression/Plan Assessments Type Assessment Date No Information Patient Care Teams Name Effective Dates (start - stop) Status Members No Information
--- OUTSIDE RECORDS SUMMARY | 2025-09-09 08:45 | XMS_ITS | Clinical Summary ---
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
[2025-09-10 07:09] LABS: GGT 308 IU/L (0-65)
== END 2025-09-09 08:34 | disposition home or self-care (01) ==
LOC: ANHLAB 08:34
PROVIDERS: PCP Family Medicine; Visit Provider Internal Medicine
DX: E10.42 Type 1 diabetes mellitus with diabetic polyneuropathy (principal); E87.6 Hypokalemia; F41.8 Other specified anxiety disorders; Z68.1 Body mass index [BMI] 19.9 or less, adult
CPT/HCPCS: 82977